=== PATIENT | male | born 1940 | race Hispanic/Latino ===

== ENCOUNTER 2017-02-11 06:44 | Inpatient (IN) | payer MEDICARE ==
[2017-02-11 06:48] VITALS: BMI 41.5
--- NOTE | 2017-02-11 07:13 | ED PDOC ---
Arrival/HPI - General Chief Complaint: Trauma Time Seen by Provider: 02/11/17 07:03 Historian: Patient, Family (daughter in law) EM Caveat: Dementia - History of Present Illness Narrative History of Present Illness (Text): 02/11/17 07:17 A 76 year old male is brought into the emergency department via EMS after being found by his hdvfshis-ka-nic face down on the ground. The patient reports he went outside and had a mechanical fall. He fell onto his bilateral knees and hit his right forehead. Patient currently complaining of right head pain at the site of his abrasion and bilateral knee pain. He states he did not loss consciousness and recalls the entire event. Patient denies any dizziness, numbness, weakness, or other complaints at this time. Time/Duration: 1-3 hours Symptom Onset: Sudden Symptom Course: Unchanged Quality: Other Activities at Onset: Rest Past Medical History - Provider Review Nursing Documentation Reviewed: Yes - Infectious Disease Hx of Infectious Diseases: None - Tetanus Immunization Tetanus Immunization: Up to Date - Cardiac Hx Cardiac Disorders: No - Pulmonary Hx Respiratory Disorders: No - Neurological Hx Neurological Disorder: Yes Hx Dementia: Yes Hx Parkinson's Disease: Yes - HEENT Hx HEENT Disorder: No - Renal Hx Renal Disorder: No - Endocrine/Metabolic Hx Endocrine Disorders: No - Hematological/Oncological Hx Blood Disorders: No - Integumentary Hx Dermatological Disorder: No - Musculoskeletal/Rheumatological Hx Musculoskeletal Disorders: No - Gastrointestinal Hx Gastrointestinal Disorders: No - Genitourinary/Gynecological Hx Genitourinary Disorders: No - Psychiatric Hx Psychophysiologic Disorder: No Hx Substance Use: No - Surgical History Hx Eye Surgery: Yes (cornea transplant) - Anesthesia Hx Anesthesia: No Hx Anesthesia Reactions: No Hx Malignant Hyperthermia: No Family/Social History - Physician Review Nursing Documentation Reviewed: Yes Family/Social History: Unknown Family HX Smoking Status: Heavy Smoker > 10 Cigarettes Daily Hx Alcohol Use: No Hx Substance Use: No Allergies/Home Meds Allergies/Adverse Reactions: Allergies Penicillins Allergy (Verified 10/19/15 17:11) RASH Home Medications: Home Meds Medication Instructions Recorded Confirmed Carbidopa/Levodopa [Carbidopa and 1 tab PO DAILY 09/24/15 10/19/15 Levodopa 10 mg-100 mg] Physical Exam - Physical Exam Narrative Physical Exam (Text): - Review of Systems Constitutional: Head pain. absent: Fatigue, Weight Change, Fevers Eyes: Normal ENT: Normal Respiratory: Normal absent: SOB, Cough, Sputum Cardiovascular: Normal absent: Chest pain, Palpitations, Syncope Gastrointestinal: Normal absent: Abdominal pain, Diarrhea, Nausea, Vomiting Genitourinary: Normal. absent: Dysuria, Frequency, Hematuria Musculoskeletal: Bilateral knee pain. absent: Arthralgias, Back Pain, Neck Pain Skin: Abrasions. Neurological: Normal. absent: Focal Weakness, dizziness Endocrine: Normal Hemo/Lymphatic: Normal Psychiatric: Normal - Physical exam Patient appears age appropriate, speaking full sentences without difficulty - Systems Exam Head: Present: superficial abrasion to the right forehead. Pupils: Present: PERRL Extraocular Muscles: Present: EOMI Conjunctiva: Present: Normal Mouth: Present: Moist Mucous Membranes Neck: Present: Normal Range of Motion. No: MIDLINE TENDERNESS, Paraspinal Tenderness Respiratory/Chest: Present: Clear to Auscultation, Good Air Exchange. No: Respiratory Distress, Accessory Muscle Use, Tachypneic Cardiovascular: Present: Regular Rate and Rhythm, Normal S1, S2, Peripheral Pulses Present. No: Murmurs Abdomen: Present: Normal Bowel Sounds, No: Tenderness, Peritoneal Signs, Rebound, Guarding, Distention Back: Present: Normal Inspection. No: Midline Tenderness, Paraspinal Tenderness Upper Extremity: Present: Normal Inspection. No: Cyanosis, Edema Lower Extremity: Present: superficial abrasion to the bilateral knees. No: Edema Neurological: Present: GCS=15, Speech Normal, cranial nerves II through XII fully intact with no cerebellar abnormality, neuro-sensory fully intact. No focal neurological deficits. Skin: Present: Warm, Dry, Normal Color. No: Rashes Lymphatic: Present: OX3, NI, NC Psychiatric: Present: Alert, not anxious Head with superficial abrasion to the right forehead. No nasal bone deformity or tenderness, no facial or jaw pain/swelling. No neck midline tenderness, thoracic and lumbar spine with no midline tenderness. Pt moving b/l upper and lower extremities without difficulty, 5/5 strength, with full active and passive ROM. Superficial abrasion to the bilateral knees. Distal neurovasc fully intact. Abd soft/nt/nd, no hematomas, no peritoneal signs. Neg. pelvic rock. Vital Signs Reviewed: Yes Vital Signs Temp Pulse Resp BP Pulse Ox 02/11/17 07:00 98.0 F 77 18 152/83 H 97 Temperature: Afebrile Blood Pressure: Hypertensive Pulse: Regular Respiratory Rate: Normal Appearance: Positive for: Well-Appearing, Non-Toxic, Comfortable Pain Distress: None Mental Status: No: Agitated, Lethargic, Comatose Finger Stick Blood Glucose: 149 Medical Decision Making ED Course and Treatment: 02/11/17 07:11 Impression: A 76 year old male with a mechanical fall. Differential Diagnosis include but are not limited to: fractures vs. dislocation vs. intracranial hemorrhage Plan: -- Head CT -- Cervical Spine CT -- Chest X-ray -- Bilateral Hip X-ray -- Bilateral Knee X-ray -- Labs -- TDAP Vaccine and Tylenol -- Reassess and disposition Prior Visits: Notes and results from previous visits were reviewed. The patient last presented to the emergency department on 10/19/15 for suture removal from his finger. Progress Notes: EKG: Ordered, reviewed, and independently interpreted the EKG. Rate : 86 BPM Rhythm : NSR Interpretation : No ST-segment elevations, normal intervals. Interpreted by me. 02/11/17 08:[address]: Creator : EFREN JIMENEZ MD IMPRESSION: No acute intracranial abnormality. Mild chronic microangiopathic changes and mild age-related global parenchymal volume loss. 02/11/17 08:[address]: Creator : EFREN JIMENEZ MD IMPRESSION: No acute fracture or traumatic anterior listhesis. 02/11/17 09:23 Bilateral Hip and Pelvis X-ray: Creator : Poncho Russo MD IMPRESSION: Unremarkable radiographs of the hips and pelvis. Bilateral Knee X-ray: Creator : Poncho Russo MD IMPRESSION: Normal radiographs of the knees. Chest X-ray: Creator : EFREN JIEMNEZ MD IMPRESSION: No active pulmonary disease. 02/11/17 10:03 pt unable to ambulate, will be admitted for PT and further w/u family states they dont' habe PMD at [facility] Dr. Duarte paged 02/11/17 10:[address] Duarte, accepts pt to her service family aware of and agree with plan - Lab Interpretations Lab Results: 02/11/17 08:32 02/11/17 08:32 Lab Results 02/11/17 08:32: PT 11.2, INR 1.04, APTT 25.2 02/11/17 08:32: WBC 12.6 H, RBC 4.22, Hgb 13.5 L, Hct 38.7 L, MCV 91.7, MCH 32.0 , MCHC 34.9, RDW 13.7, Plt Count 200, MPV 9.6, Gran % 85.2 H, Lymph % (Auto) 8.4 L, [place] % (Auto) 6.2 H, Eos % (Auto) 0.1 L, Baso % (Auto) 0.1, Gran # 10.69 H, Lymph # 1.1 L, [place] # 0.8 H, Eos # 0.0, Baso # 0.01 02/11/17 08:32: Sodium 139, Potassium 4.1, Chloride 103, Carbon Dioxide 27, Anion Gap 13, BUN 15, Creatinine 0.9, Est GFR ( Amer) > 60, Est GFR (Non- Af Amer) > 60, Random Glucose 119 H, Calcium 9.7, Total Bilirubin 0.7, AST 36, ALT 21, Alkaline Phosphatase 96, Lactate Dehydrogenase 518, Total Creatine Kinase 638 H, CK-MB (CK-2) 6.2 H, CK-MB (CK-2) % 1.0 L, Troponin I 0.03, Total Protein 7.6, Albumin 4.2, Globulin 3.5, Albumin/Globulin Ratio 1.2 I have reviewed the lab results: Yes - RAD Interpretation Radiology Orders: 02/11/17 07:24 CERVICAL SPINE W/O CONTRAST [CT] Stat HEAD W/O CONTRAST [CT] Stat HIP MIN 2V W/ PELVIS KRYSTLE [RAD] Stat KNEES BILATERAL [RAD] Stat 02/11/17 07:25 CHEST PORTABLE [RAD] Stat - Medication Orders Current Medication Orders: Sodium Chloride (Sodium Chloride 0.9%) 1,000 mls @ 1,000 mls/hr IV .Q1H STA Stop: 02/11/17 11:02 Discontinued Medications Acetaminophen (Tylenol 325mg Tab) 975 mg PO STAT STA Stop: 02/11/17 07:24 Last Admin: 02/11/17 08:46 Dose: 975 mg Comments: . Tetanus/Reduced Diphtheria/Acell Pertussis (Boostrix Vaccine Inj) 0.5 ml IM .ONCE ONE Stop: 02/11/17 07:24 Last Admin: 02/11/17 08:47 Dose: 0.5 ml - Scribe Statement The provider has reviewed the documentation as recorded by the DaribLatia Latham Attestation: All medical record entries made by the Daribmarina were at my direction and personally dictated by me. I have reviewed the chart and agree that the record accurately reflects my personal performance of the history, physical exam, medical decision making, and the department course for this patient. I have also personally directed, reviewed, and agree with the discharge instructions and disposition. Disposition/Present on Arrival - Present on Arrival Any Indicators Present on Arrival: No History of DVT/PE: No History of Uncontrolled Diabetes: No Urinary Catheter: No History of Decub. Ulcer: No History Surgical Site Infection Following: None - Disposition Have Diagnosis and Disposition been Completed?: Yes Diagnosis: Fall Disposition: HOSPITALIZED Disposition Time: 10:14 Patient Plan: Admission Condition: FAIR Referrals: Austin Soto, [Primary Care Provider] - Follow up with primary
[2017-02-11] MEDS ORDERED: TDAP Vaccine 0.5 mL Syr IM ONE (07:23)
--- NOTE | 2017-02-11 08:31 | CT ---
PROCEDURE: CT HEAD WITHOUT CONTRAST. HISTORY: Fall COMPARISON: None available. TECHNIQUE: Axial computed tomography images were obtained through the head/brain without intravenous contrast. Radiation dose: Total exam DLP = 746.99 mGy-cm. This CT exam was performed using one or more of the following dose reduction techniques: Automated exposure control, adjustment of the mA and/or kV according to patient size, and/or use of iterative reconstruction technique. FINDINGS: HEMORRHAGE: No intracranial hemorrhage. BRAIN: There are mild chronic microangiopathic changes. There is no mass, mass effect or abnormal extra-axial fluid collection. VENTRICLES: The ventricles are normal in size, shape and configuration. CALVARIUM: There is no calvarial fracture or extracranial soft tissue swelling. PARANASAL SINUSES: Predominantly clear. MASTOID AIR CELLS: Predominantly clear. OTHER FINDINGS: None. IMPRESSION: No acute intracranial abnormality. Mild chronic microangiopathic changes and mild age-related global parenchymal volume loss.
--- NOTE | 2017-02-11 08:35 | CT ---
PROCEDURE: CT Cervical Spine without contrast HISTORY: Fall COMPARISON: None available. TECHNIQUE: Axial computed tomography images were obtained of the cervical spine without the use of intravenous contrast. Coronal and sagittal reformatted images were created and reviewed. Radiation dose: Total exam DLP = 746.99 mGy-cm. This CT exam was performed using one or more of the following dose reduction techniques: Automated exposure control, adjustment of the mA and/or kV according to patient size, and/or use of iterative reconstruction technique. FINDINGS: VERTEBRAE: There is normal alignment of the cervical vertebral bodies. Cervical lordosis is maintained. Vertebral bodies are normal in height. There is no acute fracture or spondylolisthesis. DISCS/SPINAL CANAL/NEURAL FORAMINA: There is mild multilevel degenerative disc disease due to combination of disc osteophyte complexes, uncovertebral joint hypertrophy and multilevel facet arthropathy. No spinal canal stenosis PARASPINAL SOFT TISSUES: There is no prevertebral soft tissue swelling. The paraspinous soft tissues are normal. OTHER FINDINGS: No apical pneumothorax. IMPRESSION: No acute fracture or traumatic anterior listhesis.
[2017-02-11 08:47] LABS: ADD MANUAL DIFF? NO
[2017-02-11 08:53] LABS: BASO # 0.01 K/mm3 (0.0-2.0); BASO % 0.1 % (0.0-3.0); EOS % 0.1 % (1.5-5.0); GRAN # 10.69 (1.4-6.5); GRAN % 85.2 % (50.0-68.0); HEMATOCRIT 38.7 % (42.0-52.0); LYMPH # 1.1 (1.2-3.4); LYMPH % 8.4 % (22.0-35.0); MEAN CELL VOLUME 91.7 fL (80.0-105.0); MEAN CORPUSCULAR HGB CONC 34.9 g/dl (31.0-37.0); MEAN PLATELET VOLUME 9.6 fl (7.0-11.0); MONO # 0.8 (0.1-0.6); MONO % 6.2 % (1.0-6.0); PLATELET COUNT 200 10^3/uL (120.0-450.0); RED CELL DISTRIBUTION WIDTH 13.7 % (11.5-14.5); WHITE BLOOD COUNT 12.6 10^3/ul (4.5-11.0)
[2017-02-11 09:03] LABS: ALB/GLOB RATIO 1.2 (1.1-1.8); ALKALINE PHOSPHATASE 96 U/L (38-133); ALT/SGPT 21 U/L (7-56); AST/SGOT 36 U/L (15-59); BILIRUBIN,TOTAL 0.7 mg/dL (0.2-1.3); BLOOD UREA NITROGEN 15 mg/dL (7-21); CALCIUM 9.7 mg/dL (8.4-10.5); CARBON DIOXIDE 27 mmol/L (21-33); CHLORIDE 103 mmol/L (98-107); GFR AFRICAN-AMERICAN > 60; GLUCOSE,RANDOM 119 mg/dL (70-110); POTASSIUM 4.1 mmol/L (3.6-5.0); SODIUM 139 mmol/L (132-148); TOTAL PROTEIN 7.6 g/dL (5.8-8.3)
[2017-02-11 09:04] LABS: INR 1.04 (0.93-1.08); PARTIAL THROMBOPLASTIN TIME 25.2 Seconds (23.7-30.8)
[2017-02-11 09:15] LABS: TROPONIN I 0.03 ng/mL
--- NOTE | 2017-02-11 09:15 | RAD ---
HISTORY: Cough COMPARISON: The lungs are clear. FINDINGS: LUNGS: No active pulmonary disease. PLEURA: No significant pleural effusion identified, no pneumothorax apparent. CARDIOVASCULAR: Normal. OSSEOUS STRUCTURES: No significant abnormalities. VISUALIZED UPPER ABDOMEN: Normal. OTHER FINDINGS: None. IMPRESSION: No active pulmonary disease.
--- NOTE | 2017-02-11 09:22 | RAD ---
PROCEDURE: Bilateral Knee Radiographs. HISTORY: fall COMPARISON: None. FINDINGS: BONES: Right Knee: Normal. No fracture. Left Knee: Normal. No fracture. JOINTS: Right Knee: Normal. No osteoarthritis. Left knee: Normal. No osteoarthritis. SOFT TISSUES: Right Knee: Normal. Left Knee: Normal. JOINT EFFUSION: Right Knee: None. Left Knee: None. OTHER FINDINGS: None. IMPRESSION: Normal radiographs of the knees.
--- NOTE | 2017-02-11 09:23 | RAD ---
PROCEDURE: Radiographs of the pelvis and bilateral hips HISTORY: fal COMPARISON: None. FINDINGS: BONES: Pelvis: Unremarkable. Right hip:Unremarkable. Left hip:Unremarkable. JOINTS: Right hip: Unremarkable. Left hip: Unremarkable. Sacroiliac Joints: Unremarkable. Pubic symphysis: Unremarkable. SOFT TISSUES: Normal. OTHER FINDINGS: None. IMPRESSION: Unremarkable radiographs of the hips and pelvis.
[2017-02-11] MEDS ORDERED: Sodium Chloride 0.9% 1,000 ML IV STA (10:03)
[2017-02-11 12:07] LABS: CHOLESTEROL 162 mg/dL (130-200)
--- NOTE | 2017-02-11 14:54 | CARD ---
APPROVED REPORT EKG Measurement Heart [id number] <Conclusion> Normal sinus rhythm Normal ECG
--- NOTE | 2017-02-11 15:42 | HP ---
HISTORY OF PRESENT ILLNESS: The patient is a 76-year-old white male who was brought in the family wh en he from home. According to [id number] who was by the bedside between 12:00 to 6:00, he walked out of the house without anybody noticing and when they woke up and did not find him they travis led police and they looked around was found on the sidewalk between car and curb with facedown. He was responding; however, he was found to have some slurred speech. There is no history of seizu res, complained of generalized weakness, no history of fever or chills, no nausea, vomiting, no diarrhea. According to [id number] who lives upstairs and the patient and his live downsta irs that he usually ambulates with a cane and recently has been found incontinent of urine. PAST MEDICAL HISTORY: Significant for Parkinson disease and coronary artery disease and had a cardia c cath done in the remote past, does not know exact dates. ALLERGIES: HE IS ALLERGIC TO PENICILLIN. MEDICATIONS AT HOME: He is on omeprazole 40 mg daily, vitamin D, carbidopa 10/100 three times a day. SOCIAL HISTORY: He is , lives with his and with his son. PHYSICAL EXAMINATION: GENERAL: The patient is awake and alert, communicative and he has slurred speech. He has right faci al droop. VITAL SIGNS: He is afebrile, pulse 75, respirations 18, blood pressure 132/69. LUNGS: Bilateral good airflow, no rhonchi or crackle. HEART: S1, S2 audible. ABDOMEN: Soft, nontender, no rebound, no guarding. NEUROLOGIC: He is able to move all extremities; however, he has right facial droop. LABORATORY DATA: WBC is 12.6, hemoglobin 13.5, hematocrit 38.7, platelet 200. PT 11.2, INR 1.04. C hemistry: Sodium 139, potassium 4.1, chloride 103, CO2 of 27, BUN 15, creatinine 0.9, blood sugar of 119. LFTs are within normal limits. CPK 632, CK-MB 6.2, albumin 4.2. CT scan of the brain is unre markable. Cervical spine: No fracture noted. X-ray of the hip and pelvis is negative. of ch est is negative. ASSESSMENT: 1. Status post fall, rule out transient ischemic attack, especially with right facial droop. 2. History of Parkinson's disease. 3. Deconditioning. 4. Leukocytosis. 5. Right facial abrasions with bilateral knee abrasion. PLAN: We will start him on aspirin. I will order for lipid profile, thyroid profile and apply Bactr oban to both knees and right facial abrasion. Neuro consult by Dr. Curtis Aguilera has been recommende d. Mena Duarte MD cc: [phone] TT: 02/11/2017 15:41:57 cn
--- NOTE | 2017-02-11 18:13 | CON ---
DATE: 02/11/2017 HISTORY OF PRESENT ILLNESS: This is a 76-year-old white male with a past medical history of Parkinso n disease, coronary artery disease status post cardiac cath, came to the hospital, brought in by the family and he was found outside the house on the sidewalk between the car and the facedown and police were called. The patient was responding, but found to have slurred speech. No seizure. He h ad bruises on both the knees and forehead. No nausea, no vomiting. PAST MEDICAL HISTORY: As above. ALLERGIES: PENICILLIN. MEDICATIONS: Omeprazole, carbidopa, Sinemet. SOCIAL HISTORY: , lives with and son. REVIEW OF SYSTEMS: A 10-point review of system was negative except as noted above. PHYSICAL EXAMINATION: HEENT: Normocephalic, atraumatic. NECK: Supple. NEUROLOGIC: Awake, oriented to self and place. No aphasia. Cranial nerves II-XII were tested. Pup ils reactive. Spontaneous movement of all the extremities noted, upper more than the lower. Deep te ndon reflexes 1+. Both plantars are downgoing. Sensory appears intact. Cerebellar and gait deferre d. IMPRESSION: The patient has Parkinson disease and possibly had a syncopal episode versus TIA and fal l secondary to above and right facial abrasion and bilateral knee abrasion. CAT scan of the head was done, which was reported negative. LABORATORY: WBC 12.6, hemoglobin 13.5, hematocrit 38.7, platelets 200. Chemistry: Sodium 139, pota ssium 4.1, chloride 103, CO2 of 27, glucose 119, BUN 15, creatinine 0.9. CPK was also high, possibly secondary to fall. Workup in progress. PLAN: Continue present management. We will follow up. Adriel Aguilera MD cc: [id number] TT: 02/11/2017 18:12:11 Confirmation # [id number] Dictation # [id number] mn
--- NOTE | 2017-02-11 18:49 | US ---
PROCEDURE: Bilateral carotid artery duplex ultrasound HISTORY: Carotid stenosis PHYSICIAN(S): Josse Gordon MD. TECHNIQUE: Duplex sonography and color-flow Doppler were used to evaluate the carotid bifurcations and limited segments of the vertebral arteries bilaterally. The exam is very limited by the patient's contracted condition and inability to cooperate. FINDINGS: There is moderate to extensive heterogeneous echogenic plaque noted at the carotid bifurcations bilaterally. The peak systolic velocity in the proximal right internal carotid artery is 160 cm/sec. This corresponds to a 60-79 percent proximal right ICA stenosis. Normal systolic velocities are noted in the proximal right external carotid artery. There is antegrade flow in the right vertebral artery. The peak systolic velocity in the proximal left internal carotid artery is 92 cm/sec. This corresponds to a 20 to 39% proximal left ICA stenosis. Normal systolic velocities are noted in the proximal left external carotid artery. There is blunted antegrade flow in the small left vertebral artery. IMPRESSION: 1. 60-79 percent proximal right ICA stenosis. 2. 20-39 percent proximal left ICA stenosis. 3. Antegrade flow in both vertebral arteries.
[2017-02-12] MEDS: Pantoprazole 40 mg EC Tab PO SCH (06:03)
[2017-02-12 08:53] LABS: ADD MANUAL DIFF? NO
[2017-02-12 08:58] LABS: BASO # 0.02 K/mm3 (0.0-2.0); BASO % 0.2 % (0.0-3.0); EOS # 0.1 (0.0-0.7); EOS % 1.2 % (1.5-5.0); GRAN # 8.29 (1.4-6.5); GRAN % 69.4 % (50.0-68.0); HEMATOCRIT 40.7 % (42.0-52.0); LYMPH # 2.4 (1.2-3.4); LYMPH % 20.4 % (22.0-35.0); MEAN CELL VOLUME 93.3 fL (80.0-105.0); MEAN CORPUSCULAR HEMOGLOBIN 32.6 pg (25.0-35.0); MEAN CORPUSCULAR HGB CONC 34.9 g/dl (31.0-37.0); MEAN PLATELET VOLUME 9.9 fl (7.0-11.0); MONO # 1.1 (0.1-0.6); MONO % 8.8 % (1.0-6.0); PLATELET COUNT 219 10^3/uL (120.0-450.0); RED CELL DISTRIBUTION WIDTH 13.7 % (11.5-14.5); WHITE BLOOD COUNT 11.9 10^3/ul (4.5-11.0)
[2017-02-12 09:06] LABS: ALB/GLOB RATIO 1.2 (1.1-1.8); ALKALINE PHOSPHATASE 91 U/L (38-133); ALT/SGPT 36 U/L (7-56); AST/SGOT 138 U/L (15-59); BILIRUBIN,TOTAL 0.9 mg/dL (0.2-1.3); BLOOD UREA NITROGEN 12 mg/dL (7-21); CALCIUM 9.3 mg/dL (8.4-10.5); CARBON DIOXIDE 28 mmol/L (21-33); CHLORIDE 102 mmol/L (98-107); GFR AFRICAN-AMERICAN > 60; GLUCOSE,RANDOM 95 mg/dL (70-110); MAGNESIUM 2.1 mg/dL (1.7-2.2); PHOSPHOROUS 2.7 mg/dL (2.5-4.5); POTASSIUM 3.9 mmol/L (3.6-5.0); SODIUM 137 mmol/L (132-148); TOTAL PROTEIN 7.4 g/dL (5.8-8.3)
[2017-02-12 09:22] LABS: FREE T4 0.99 ng/dL (0.78-2.19)
[2017-02-12 09:36] LABS: PROSTATE SPECIFIC ANTIGEN 1.9 ng/mL (0.00-2.5); THYROID STIMULATING HORMONE 2.39 mIU/mL (0.46-4.68)
--- NOTE | 2017-02-12 13:37 | IP.NPCORE ---
NIHSS Stroke Scale - Date/Time Evaluation Performed Date Performed: 02/12/17 Time Performed: 10:00 When Was NIHSS Performed: Other - How Severe is the Stoke Level of Consciousness: 1=Drowsy
--- NOTE | 2017-02-12 16:33 | PN ---
DATE: 02/12/2017 HISTORY OF PRESENT ILLNESS: The patient is 76 years old, seen and examined, sitting in chair. He is awake and alert and able to answer simple questions. As per nurse, eating fair. PHYSICAL EXAMINATION: VITAL SIGNS: He is afebrile, pulse 57, respirations 20, blood pressure 155/75. LUNGS: Bilateral fair airflow, no rhonchi or crackle. HEART: S1, S2 audible. ABDOMEN: Soft, obese, nontender, no rebound, no guarding. NEUROLOGIC: He is awake and alert. Has fine tremor in both upper extremities. He has facial droop, but according to family, that seems to be old. SKIN: He has forehead abrasion. Also has bilateral knee abrasions. LABORATORY EXAMINATION: WBC is 11.9, hemoglobin 14.2, hematocrit 40.7, platelet of 219. Sodium 137, potassium 3.9, chloride 102, CO2 28, BUN 12, creatinine 0.8, blood sugar of 95. LFTs are within nor mal limits. RADIOLOGY DATA: Carotid ultrasound shows right ICA 60% to 79%, left is 20% to 39%. The patient refu sed to have MRI done. Will reach out to the family. ASSESSMENT: 1. Status post fall. 2. Forehead abrasion. 3. Right carotid stenosis. 4. Parkinson disease. 5. History of coronary artery disease, status post catheterization in the remote past. 6. Deconditioning. PLAN: Will reach out to the family to get MRI. Otherwise, I will request for a physical therapy madalyn redmanation. Dr. Josse Gordon to evaluate patient's right carotid stenosis. I do not think any intervent ion is needed, but will get opinion anyway. Will continue on aspirin, start him on Lipitor. Continu e on Protonix, and will reevaluate the patient in a.m. Mena Duarte MD cc: [phone] TT: 02/12/2017 16:32:58 Confirmation # [id number] Dictation # [id number]
--- NOTE | 2017-02-12 17:16 | PN ---
DATE: 02/12/2017 CHIEF COMPLAINT: Followup for status post fall. SUBJECTIVE: The patient seen and examined at bedside, sitting up in the chair, in no acute distress. He had a recent mechanical fall, was found down by the sidewalk by the curb. Had some slurred spee ch and questionable right facial droop which he no longer has. His CT head showed no acute intracran ial abnormalities. He has fine tremors of both upper extremities and has a right carotid artery dise ase and carotid Doppler showing 60% to 79% right ICA stenosis and 20% to 39% left ICA stenosis. He h as Parkinson disease which has resulted in gait dysfunction and deconditioning. Overall, vascular co nsult has been placed out. The patient had refused MRI of the brain, MRA of the neck, but has agreed possibly today to get it done. He is on aspirin and statin for stroke prevention. PAST MEDICAL HISTORY: Parkinson disease, history of right carotid artery stenosis, history of roblero ry artery disease, status post catheterization in the past, deconditioning, cognitive impairment. REVIEW OF SYSTEMS: A 14-point review of systems negative except for the HPI. FAMILY HISTORY: Noncontributory. SOCIAL HISTORY: No illicit drug use, smoking, or ETOH abuse. ALLERGIES: ALLERGIC TO PENICILLIN. MEDICATIONS: Reviewed via nurse's reconciliation sheet. PHYSICAL EXAMINATION: VITAL SIGNS: Temperature 98.3, pulse rate 57, blood pressure 155/75, respiratory rate 20, oxygen sat uration 95% via room air. GENERAL: The patient is sitting up in bed in no acute distress. HEENT: Atraumatic, normocephalic. PERRLA. Extraocular muscles intact. NECK: Supple, no JVD, no adenopathy noted. LUNGS: Clear to auscultation. No adventitious sounds. HEART: S1, S2, normal rate and rhythm. No murmurs, rubs, or gallops. ABDOMEN: Soft, nontender, nondistended. Bowel sounds present. EXTREMITIES: No clubbing, no cyanosis. Peripheral pulses are absent bilaterally. NEUROLOGIC: The patient is alert, orientated to person, place and year. Recall after 5 minutes is 0 /3. Poor attention span, slow thought process. Flat affect. Cranial nerves II-XII intact. MOTOR: Increased tone throughout, has cogwheel rigidity at the wrist. Moves all extremities. No pr onator drift seen. SENSORY: Decreased light touch and pinprick up to the calves bilaterally. Decreased vibration in to es. DTR are 1+ throughout and absent at the ankles. COORDINATION: Mvvoho-dt-vjly intact. Gait is deferred for now. Mild rest tremor. LABORATORIES: Sodium is 137, potassium 3.9, chloride of 102, carbon dioxide 28, BUN of 12, creatinin e 0.8. Random glucose of 95. ASSESSMENT AND PLAN: A 76-year-old man with past medical history of Parkinson disease, on Sinemet 10 /100 t.i.d.; history of gastritis, history of hypertension, coronary artery disease status post stent s, history of dyslipidemia and deconditioned, who had a mechanical fall outside his house on the curb . He was found down, had some questionable right facial droop and with slurring of speech which had resolved. Overall, he is status post fall with a possible transient ischemic event. He has a right carotid artery stenosis of 60% to 79% on carotid Doppler. MRA of the neck is pending and MRI of the brain is pending due to patient refusing. At this time, recommend: 1. At least aspirin 81 mg p.o. daily and Lipitor 20 mg p.o. daily for stroke prevention. 2. Consider vascular evaluation just to see his right carotid artery stenosis. 3. Continue with Sinemet 10/100 t.i.d. for parkinsonism. 4. Get physical therapy for gait evaluation and muscle strengthening. Possibly may benefit from sub acute rehabilitation if possible. At this time, continue with current present medical management. Thank you for this followup. Curtis Aguilera MD cc: [phone] TT: 02/12/2017 17:15:37 Confirmation # [id number] Dictation # [id number] sn
--- NOTE | 2017-02-12 19:49 | CP.PCM.CON ---
History of Present Illness - History of Present Illness History of Present Illness: Vascular Surgery Consult Re: R Carotid Stenosis HPI: 76M who is a poor historian presented to the ED yesterday after he wandered out of the house and fell down. Per the son, he was found after he was noticed missing in the morning between a car and the curb a few blocks away. The pt has shown progressively worsening dementia over the last year and has had other falls related to his parkinsonian gait disturbance. He usually walks with a cane for assistance but has to be reminded to use it correctly. CT showed no acute intracranial issues. We were consulted for the carotid US results showing 60-79% stenosis of the R carotid artery. Currently pt denies any complaints as well as denying that he fell. Per son, he seems to be his usual mental state but does have more lucid periods on occasion. PMH: Parkinsons, Dementia, GERD, CAD PSH: Cardiac cath, cornea transplant SH: Smoker; No EtOH or drug use All: PCN Meds: See MAR Review of Systems - Review of Systems All systems: reviewed and no additional remarkable complaints except (as per HPI ) Past Patient History - Infectious Disease Hx of Infectious Diseases: None - Tetanus Immunizations Tetanus Immunization: Up to Date - Past Social History Smoking Status: Unknown If Ever Smoked - CARDIAC Hx Hypertension: Yes - PULMONARY Hx Respiratory Disorders: No - NEUROLOGICAL Hx Neurological Disorder: Yes Hx Dementia: Yes Hx Parkinson's Disease: Yes - HEENT Hx HEENT Problems: Yes (hx of corneal transplant) - RENAL Hx Chronic Kidney Disease: No - ENDOCRINE/METABOLIC Hx Endocrine Disorders: No - HEMATOLOGICAL/ONCOLOGICAL Hx Blood Disorders: No - INTEGUMENTARY Hx Dermatological Problems: Yes Other/Comment: long fingernails and thick toenails, redness to groin, r abd fold and r upper abd, multiple bruises to b/l arm, abrasions to both knees and r forehead with swelling,variscosities both feet, small stage 1 0.5cm round opening to left buttock, buttocks slightly red - MUSCULOSKELETAL/RHEUMATOLOGICAL Hx Falls: Yes (this am) - GASTROINTESTINAL Hx Gastrointestinal Disorders: No - GENITOURINARY/GYNECOLOGICAL Hx Genitourinary Disorders: No - PSYCHIATRIC Hx Psychophysiologic Disorder: No - SURGICAL HISTORY Hx Surgeries: Yes - ANESTHESIA Hx Anesthesia: No Hx Anesthesia Reactions: No Hx Malignant Hyperthermia: No Meds Allergies/Adverse Reactions: Allergies Allergy/AdvReac Type Severity Reaction Status Date / Time Penicillins Allergy RASH Verified 02/11/17 10:33 - Medications Medications: Current Medications Acetaminophen (Tylenol 325mg Tab) 650 mg PO Q6H PRN PRN Reason: Fever >100.4 F Last Admin: 02/12/17 03:39 Dose: 650 mg Aspirin (Aspirin Chewable) 81 mg PO DAILY [facility] Last Admin: 02/12/17 09:16 Dose: 81 mg Atorvastatin Calcium (Lipitor) 10 mg PO DIN [facility] Last Admin: 02/12/17 17:53 Dose: 10 mg Carbidopa/Levodopa (Sinemet 10/100) 1 tab PO TID [facility] Last Admin: 02/12/17 17:53 Dose: 1 tab Lorazepam (Ativan) 0.5 mg PO Q6H PRN; Protocol PRN Reason: Agitation Last Admin: 02/12/17 15:31 Dose: 0.5 mg Mupirocin (Bactroban Ointment) 0 gm TOP BID [facility] Last Admin: 02/12/17 17:58 Dose: 1 applic Ondansetron HCl (Zofran Inj) 4 mg IVP Q6H PRN PRN Reason: Nausea/Vomiting Pantoprazole Sodium (Protonix Ec Tab) 40 mg PO 0630 [facility] Last Admin: 02/12/17 06:03 Dose: Not Given Physical Exam - Constitutional Appears: Non-toxic, No Acute Distress - Head Exam Head Exam: NORMOCEPHALIC Additional comments: abrasion to R forehead and scalp - Eye Exam Eye Exam: EOMI. absent: Scleral icterus - ENT Exam ENT Exam: Mucous Membranes Moist Additional comments: wears dentures - Neck Exam Neck exam: Negative for: Tenderness Additional comments: kyphotic - Respiratory Exam Respiratory Exam: NORMAL BREATHING PATTERN. absent: Respiratory Distress - Cardiovascular Exam Cardiovascular Exam: RRR, +S1, +S2 - GI/Abdominal Exam GI & Abdominal Exam: Soft. absent: Distended, Tenderness - Rectal Exam Rectal Exam: Deferred - Extremities Exam Extremities exam: Positive for: normal capillary refill, pedal edema - Neurological Exam Neurological exam: Alert, CN II-XII Intact Additional comments: Smile symmetrical, per family "facial droop" noted in other notes is how he looks UE and LE strength equal B/L - Psychiatric Exam Psychiatric exam: Flat Affect, Normal Mood - Skin Skin Exam: Dry, Warm Results - Vital Signs Recent Vital Signs: Last Vital Signs Temp 98.3 F 02/12/17 16:00 Pulse 66 02/12/17 16:00 Resp 20 02/12/17 16:00 BP 160/80 H 02/12/17 16:00 Pulse Ox 97 02/12/17 16:00 - Labs Result Diagrams: 02/12/17 05:00 02/12/17 05:00 Labs: Laboratory Results - last 24 hr 02/12/17 02/12/17 02/12/17 05:00 05:00 05:00 WBC 11.9 H RBC 4.36 Hgb 14.2 Hct 40.7 L MCV 93.3 MCH 32.6 MCHC 34.9 RDW 13.7 Plt Count 219 MPV 9.9 Gran % 69.4 H Lymph % (Auto) 20.4 L [place] % (Auto) 8.8 H Eos % (Auto) 1.2 L Baso % (Auto) 0.2 Gran # 8.29 H Lymph # 2.4 [place] # 1.1 H Eos # 0.1 Baso # 0.02 Sodium 137 Potassium 3.9 Chloride 102 Carbon Dioxide 28 Anion Gap 11 BUN 12 Creatinine 0.8 Est GFR ( Amer) > 60 Est GFR (Non-Af Amer) > 60 Random Glucose 95 Hemoglobin A1c Calcium 9.3 Phosphorus 2.7 Magnesium 2.1 Total Bilirubin 0.9 AST 138 H ALT 36 Alkaline Phosphatase 91 Total Protein 7.4 Albumin 4.1 Globulin 3.3 Albumin/Globulin Ratio 1.2 Prostate Specific Ag 1.9 Free T4 0.99 TSH 3rd Generation 2.39 02/12/17 05:00 WBC RBC Hgb Hct MCV MCH MCHC RDW Plt Count MPV Gran % Lymph % (Auto) [place] % (Auto) Eos % (Auto) Baso % (Auto) Gran # Lymph # [place] # Eos # Baso # Sodium Potassium Chloride Carbon Dioxide Anion Gap BUN Creatinine Est GFR ( Amer) Est GFR (Non-Af Amer) Random Glucose Hemoglobin A1c 5.8 Calcium Phosphorus Magnesium Total Bilirubin AST ALT Alkaline Phosphatase Total Protein Albumin Globulin Albumin/Globulin Ratio Prostate Specific Ag Free T4 TSH 3rd Generation - Imaging and Cardiology US - carotid Status: Image reviewed by me, Report reviewed by me CT scan - head Status: Image reviewed by me, Report reviewed by me Assessment & Plan - Assessment and Plan (Free Text) Assessment: 76M with 60-79% R carotid stenosis, asymptomatic Plan: Continue medical management Discussed case with Dr. Wilson: No surgical intervention required in asymptomatic pts with 60-79% carotid stenosis. Recommend monitoring progression of disease with yearly US. PGY3
[2017-02-13] MEDS: Pantoprazole 40 mg EC Tab PO SCH (05:50)
[2017-02-13 07:39] LABS: ADD MANUAL DIFF? NO
[2017-02-13 07:47] LABS: BASO # 0.02 K/mm3 (0.0-2.0); BASO % 0.2 % (0.0-3.0); EOS # 0.2 (0.0-0.7); EOS % 1.7 % (1.5-5.0); GRAN # 6.77 (1.4-6.5); HEMATOCRIT 40.1 % (42.0-52.0); LYMPH % 20.1 % (22.0-35.0); MEAN CELL VOLUME 94.1 fL (80.0-105.0); MEAN CORPUSCULAR HEMOGLOBIN 31.5 pg (25.0-35.0); MEAN CORPUSCULAR HGB CONC 33.4 g/dl (31.0-37.0); MEAN PLATELET VOLUME 10.1 fl (7.0-11.0); MONO # 0.9 (0.1-0.6); PLATELET COUNT 191 10^3/uL (120.0-450.0); RED CELL DISTRIBUTION WIDTH 13.9 % (11.5-14.5); WHITE BLOOD COUNT 9.8 10^3/ul (4.5-11.0)
[2017-02-13 08:31] VITALS: O2SAT 94
[2017-02-13 08:35] LABS: BLOOD UREA NITROGEN 16 mg/dL (7-21); GFR AFRICAN-AMERICAN > 60; GLUCOSE,RANDOM 99 mg/dL (70-110); SODIUM 137 mmol/L (132-148)
[2017-02-13 08:36] LABS: ALB/GLOB RATIO 1.2 (1.1-1.8); ALKALINE PHOSPHATASE 73 U/L (38-133); ALT/SGPT 50 U/L (7-56); AST/SGOT 94 U/L (15-59); BILIRUBIN,TOTAL 0.5 mg/dL (0.2-1.3); CARBON DIOXIDE 27 mmol/L (21-33); CHLORIDE 103 mmol/L (98-107); MAGNESIUM 2.1 mg/dL (1.7-2.2); POTASSIUM 3.8 mmol/L (3.6-5.0); TOTAL PROTEIN 6.5 g/dL (5.8-8.3)
--- NOTE | 2017-02-13 12:54 | PN ---
DATE: 02/13/2017 The patient is a 76-year-old, seen and examined, sitting in chair, seems to be comfortable, looks muc h more awake and alert, able to communicate, eating well. PHYSICAL EXAMINATION: VITAL SIGNS: He is afebrile, pulse 64, respirations 20, blood pressure 137/71. LUNGS: Bilateral fair airflow, no rhonchi or crackle. HEART: S1, S2 audible. ABDOMEN: Soft, obese, nontender, no rebound, no guarding. NEUROLOGIC: The patient is awake and alert, able to communicate. EXTREMITIES: Bilateral leg edema. He has bilateral knee abrasions that seems to be scabbing. LABORATORY EXAM: Sodium 137, potassium 3.8, chloride 103, CO2 of 27, BUN 16, creatinine 0.9, blood s ugar 99. LFTs are within normal limits. WBC 9.8, hemoglobin 13.4, hematocrit 40, platelets 191. ASSESSMENT: 1. Status post fall. 2. History of Parkinson disease. 3. Right carotid moderate stenosis. 4. Unstable gait. 5. Deconditioning and difficulty walking. 6. Hypertension. 7. Hyperlipidemia. PLAN: The patient is currently on aspirin. His wounds on both knees and forehead is being cared for . He has been started on carbidopa/levodopa. He is on Protonix. Awaiting for TCU evaluation and ac ceptance. Once he is accepted, he can be transferred to TCU for rehab. Mena Duarte MD cc: [phone] TT: 02/13/2017 12:53:26 Confirmation # [id number] Dictation # [id number] benedict
[2017-02-14] MEDS: Pantoprazole 40 mg EC Tab PO SCH (05:51)
--- NOTE | 2017-02-14 12:09 | DS ---
The patient is a 76-year-old, seen and examined. Looks much more awake and alert. His forehead arley khoa is crusting, so are bilateral knee abrasions. He seems to be more alert and, according to nurse , eating and tolerating. Unstable on therapy. Good candidate for TCU. PHYSICAL EXAMINATION: VITAL SIGNS: He is afebrile, pulse 67, respirations 20, blood pressure 132/73. LUNGS: Bilateral good airflow, no rhonchi or crackle. HEART: S1, S2 audible. ABDOMEN: Soft, nontender, no rebound, no guarding. NEUROLOGIC: The patient is awake and alert. Has generalized weakness. ASSESSMENT: 1. Status post fall. 2. History of Parkinson disease, unstable gait. 3. Right carotid stenosis. 4. Mild dementia. 5. Coronary artery disease. 6. Forehead and bilateral knee abrasions. PLAN: Will continue patient on current medication. The patient was evaluated by Dr. Olivia Wilson. There is no plan for any intervention for right carotid stenosis and was advised to treat medically. Continue patient on aspirin, statins, Protonix, and I will continue him on his carbidopa/levodopa. Awaiting TCU evaluation and acceptance. Once he is accepted, he can be transferred to TCU today. Mena Duarte MD cc: [phone] TT: 02/14/2017 12:09:14 ne
[2017-02-14 13:42] LABS: URINE BILIRUBIN NEGATIVE (NEGATIVE); URINE BLOOD NEGATIVE (NEGATIVE); URINE GLUCOSE (UA) NEGATIVE (NEGATIVE); URINE KETONE NEGATIVE (NEGATIVE); URINE LEUKOCYTE ESTERASE TRACE Leu/uL (NEGATIVE); URINE PROTEIN TRACE mg/dL (<30 mg/dL)
[2017-02-14 13:54] LABS: URINE APPEARANCE CLEAR (CLEAR); URINE COLOR YELLOW (YELLOW)
[2017-02-14 14:06] LABS: URINE RBC NEGATIVE /hpf (0-2)
[2017-02-14 14:07] LABS: URINE BACTERIA TRACE (NEG)
[2017-02-14 17:38] VITALS: BP 127/68; PULSE 69; RESP 19; TEMP 98.4
== END 2017-02-14 19:56 | DRG 57 ==
LOC: ED 06:44 → ERH 10:15 → 3RSO 12:13
PROVIDERS: ADMIT Internal Medicine; ATTEND Internal Medicine
DX: G20 Parkinson's disease (principal); F02.80 Dementia in other diseases classified elsewhere, unspecified severity, without behavioral disturbance, psychotic disturbance, mood disturbance, and anxiety; I65.23 Occlusion and stenosis of bilateral carotid arteries; I25.10 Atherosclerotic heart disease of native coronary artery without angina pectoris; R29.810 Facial weakness; R47.81 Slurred speech; S80.211A Abrasion, right knee, initial encounter; S80.212A Abrasion, left knee, initial encounter; S00.81XA Abrasion of other part of head, initial encounter; K21.9 Gastro-esophageal reflux disease without esophagitis; I10 Essential (primary) hypertension; E78.5 Hyperlipidemia, unspecified; R26.2 Difficulty in walking, not elsewhere classified; W19.XXXA Unspecified fall, initial encounter; Y93.01 Activity, walking, marching and hiking; Y92.480 Sidewalk as the place of occurrence of the external cause; Y99.9 Unspecified external cause status; Z95.5 Presence of coronary angioplasty implant and graft; Z88.0 Allergy status to penicillin

== ENCOUNTER 2017-02-14 19:56 | Inpatient (IN) | payer OTHER ==
[2017-02-15] MEDS: Pantoprazole 40 mg EC Tab PO SCH (05:41)
[2017-02-15 07:14] LABS: HEMATOCRIT 40.3 % (42.0-52.0); MEAN CELL VOLUME 93.9 fL (80.0-105.0); MEAN CORPUSCULAR HEMOGLOBIN 31.7 pg (25.0-35.0); MEAN CORPUSCULAR HGB CONC 33.7 g/dl (31.0-37.0); RED CELL DISTRIBUTION WIDTH 13.8 % (11.5-14.5); WHITE BLOOD COUNT 10.3 10^3/ul (4.5-11.0)
[2017-02-15 07:16] LABS: ALB/GLOB RATIO 1.2 (1.1-1.8); ALKALINE PHOSPHATASE 78 U/L (38-133); ALT/SGPT 48 U/L (7-56); AST/SGOT 64 U/L (15-59); BILIRUBIN,TOTAL 0.8 mg/dL (0.2-1.3); BLOOD UREA NITROGEN 16 mg/dL (7-21); CALCIUM 9.4 mg/dL (8.4-10.5); CARBON DIOXIDE 28 mmol/L (21-33); CHLORIDE 101 mmol/L (95-110); GFR AFRICAN-AMERICAN > 60; GLUCOSE,RANDOM 104 mg/dL (70-110); POTASSIUM 4.3 mmol/L (3.6-5.0); SODIUM 137 mmol/L (132-148); TOTAL PROTEIN 6.9 g/dL (5.8-8.3)
--- NOTE | 2017-02-15 16:11 | CON ---
DATE: 02/15/2017 CHIEF COMPLAINT: Parkinson disease. HISTORY OF PRESENTING ILLNESS: This is a 76-year-old man with past medical history of Parkinson dise ase, on Sinemet 10/100 t.i.d.; history of gastritis, hypertension, coronary artery disease status pos t stents, history of dyslipidemia and deconditioned state, had a mechanical fall outside his house on the curb and was found down. Had some questionable slurred speech and right facial droop which had resolved. His CT head showed no acute intracranial abnormalities. He had a carotid Doppler that svetlana wed 60% to 79% proximal right ICA stenosis, which vascular surgery recommended just medical treatment . He is more alert and eating and tolerating. He has unstable gait; therefore, he is in TRCU for de conditioned state and physical and occupational therapy. PAST MEDICAL HISTORY: Parkinson disease, history of right carotid artery stenosis, coronary artery d isease, status post cath, deconditioned, cognitive impairment. REVIEW OF SYSTEMS: A 14-point review of systems negative except for the HPI. SOCIAL HISTORY: No illicit drug use, smoking or ETOH abuse. ALLERGIES: PENICILLIN. MEDICATIONS: Reviewed via nurse's reconciliation sheet. PHYSICAL EXAMINATION: VITAL SIGNS: Temperature of 97.6, pulse rate of 80, blood pressure 117/74, respiratory rate of 18. GENERAL: The patient is sitting up in bed in no acute distress. HEENT: Atraumatic, normocephalic. PERRLA. Extraocular muscles intact. NECK: Supple, no JVD, no adenopathy noted. LUNGS: Clear to auscultation. No adventitious sounds. HEART: S1, S2, normal rate and rhythm. No murmurs, rubs, or gallops. ABDOMEN: Soft, nontender, nondistended. Bowel sounds are present. EXTREMITIES: No clubbing, no cyanosis. Peripheral pulses 2+ felt bilaterally. NEUROLOGIC: The patient is alert and orientated to person, place and year. Recall after 5 minutes i s 0/3. Poor attention span. Slow thought process. Flat affect. Cranial nerves II-XII intact. MOTOR: Increased tone throughout. Has cogwheel rigidity, mild at the wrists. Moves all extremities equally. No pronator drift seen. SENSORY: Decreased light touch and pinprick up to the calves bilaterally. Decreased vibration at th e toes. DTRs are 1+ throughout and absent at the ankles. COORDINATION: Nncxye-cw-pcro intact. Gait is deferred for now. Has a mild rest tremor. LABORATORIES: Sodium is 137, potassium 4.3, chloride of 101, carbon dioxide 28, BUN of 6, creatinine 0.9, random glucose of 104. ASSESSMENT AND PLAN: A 76-year-old man with history of Parkinson disease, on Sinemet 10/100 t.i.d.; has cognitive impairment, gastritis, history of coronary artery disease status post stent, history of dyslipidemia and deconditioned state. Had a mechanical fall outside his curb and found to have tobar sient right facial droop and slurred speech which has resolved. Came to the hospital for further madalyn luation. Now currently in transitional care unit for deconditioned state for physical and occupation al therapy. He has right carotid artery stenosis on carotid Doppler 60% to 79%. Will be medically m anaged rather than no vascular intervention. At this time: 1. Continue with aspirin 81 mg and Lipitor 20 mg for stroke prevention. 2. Continue with Sinemet 10/100 t.i.d. mg for Parkinsonism. 3. Will need physical and occupational therapy for muscle strengthening, gait and balance and coordi nation. Continue with current present management. No further neurological workup needed at this araceli e. We will sign off. Curtis Aguilera MD cc: [phone] TT: 02/15/2017 16:10:43 Confirmation # [id number] Dictation # [id number] sn
--- NOTE | 2017-02-15 21:12 | HP ---
HISTORY OF PRESENT ILLNESS: The patient is a 76-year-old who was brought in by family. He was found missing on 02/11/2017. When they went to see him outside, he was found on the sidewalk with face do wn. He was brought to Emergency Room. Initial workup was done that shows right carotid 65% to 70% st enosis and was evaluated by Dr. Josse Gordon and Dr. Wilson and it was decided not to do any interventio n. The patient was transferred to TCU for rehab and physical therapy. PAST MEDICAL HISTORY: 1. Parkinson disease. 2. Hypertension. 3. Hyperlipidemia. 4. Coronary artery disease, status post cardiac catheterization in remote past. ALLERGIES: HE IS ALLERGIC TO PENICILLIN. MEDICATIONS AT HOME: He is on omeprazole 40 mg daily, vitamin D 100 three times a day. SOCIAL HISTORY: He is , lives with his and his son in the same two-family house. Denies smoking or drinking. REVIEW OF SYSTEMS: Significant for generalized weakness and difficulty walking. Otherwise, no nause a, vomiting. No diarrhea, no hemoptysis, no hematemesis. PHYSICAL EXAMINATION: GENERAL: He is awake and alert, communicative. VITAL SIGNS: He is afebrile, pulse 80, respirations 18, blood pressure 170/74. LUNGS: Bilateral fair airflow, no rhonchi or crackle. HEART: S1, S2 audible. ABDOMEN: Soft, nontender, no rebound, no guarding. NEUROLOGIC: The patient is awake and alert, able to communicate, has difficulty walking. LABORATORY DATA: WBC is 10.3, hemoglobin 13.6, hematocrit 40, platelet of 201. Chemistry: Sodium 1 37, potassium 4.3, chloride 101, CO2 of 28, BUN 16, creatinine 0.9, blood sugar of 104. ASSESSMENT: 1. Status post fall. 2. Deconditioning and difficulty walking. 3. Facial and bilateral knee abrasions secondary to fall. 4. Improved rhabdomyolysis. 5. Coronary artery disease, status post angioplasty. 6. Mild dementia. 7. Hyperlipidemia. 8. Right carotid artery stenosis. PLAN: We will continue patient on aspirin 81 daily, Lipitor 20 mg daily, continue him on Sinemet and encourage physical therapy. We will reevaluate the patient in the a.m. Mena Duarte MD cc: [phone] TT: 02/15/2017 21:11:48 ln
[2017-02-16] MEDS: Pantoprazole 40 mg EC Tab PO SCH (06:35)
--- NOTE | 2017-02-16 12:43 | PN ---
DATE: 02/16/2017 SUBJECTIVE: The patient is a 76-year-old, seen and examined, lying in bed, seems to be comfortable, participated in therapy yesterday. He is verbally responsive, follows commands. PHYSICAL EXAMINATION: VITAL SIGNS: He is afebrile, pulse 53, respirations 16, blood pressure 108/54. LUNGS: Bilateral fair airflow, no rhonchi or crackle. HEART: S1, S2 audible. ABDOMEN: Soft, nontender, no rebound, no guarding. NEUROLOGIC: He is awake and alert, able to communicate. LABORATORY EXAMINATION: There is no new lab available today. ASSESSMENT: 1. Status post fall. 2. Parkinson disease. 3. Deconditioning and difficulty walking. 4. Hypertension. 5. History of coronary artery disease, status post angioplasty in the remote past. PLAN: We will continue patient on current medical treatment, encourage aggressive physical therapy, continue on carbidopa/levodopa. We will reevaluate patient in a.m. Mena Duarte MD cc: [phone] TT: 02/16/2017 12:42:10 Confirmation # [id number] Dictation # [id number] tn
[2017-02-17] MEDS: Pantoprazole 40 mg EC Tab PO SCH (05:38)
[2017-02-18] MEDS: Pantoprazole 40 mg EC Tab PO SCH (05:47)
--- NOTE | 2017-02-18 13:32 | PN ---
DATE: 02/18/2017 The patient is 76 years old. According to nurse, he was very agitated last night, so was given Ativa n twice. PHYSICAL EXAMINATION: GENERAL: This morning, he is sleepy, but arousable, able to follow commands. VITAL SIGNS: He is afebrile, pulse 75, respirations 18, blood pressure 1____3/72. LUNGS: Bilateral fair airflow. No rhonchi or crackle. HEART: S1, S2 audible. No murmur. ABDOMEN: Soft, nontender, obese. No hepatosplenomegaly. NEUROLOGIC: The patient is sleepy, but is arousable. EXTREMITIES: Bilateral legs, no edema. ASSESSMENT: 1. Status post altered mental status. 2. History of Parkinson's disease. 3. Status post fall with facial and bilateral knee abrasion. 4. Deconditioning and difficulty walking. 5. Hyperlipidemia. 6. Coronary artery disease, status post remote angioplasty. PLAN: I will request Dr. Patiño to evaluate the patient for his agitation and behavioral disorder to adjust his medication. Otherwise, we will continue all other medical treatment. Mena Duarte MD cc: [phone] TT: 02/18/2017 13:32:08 Confirmation # [id number] Dictation # [id number] jn
[2017-02-19] MEDS: Pantoprazole 40 mg EC Tab PO SCH (09:44)
--- NOTE | 2017-02-19 13:55 | PN ---
DATE: 02/19/2017 The patient is a 76-year-old, seen and examined, lying in bed, getting agitated at times, sleeping mo st of the time. Answers appropriately, responds to verbal commands and some discharge from both eyes . PHYSICAL EXAMINATION: VITAL SIGNS: He is afebrile, pulse 66, respirations 14, blood pressure 100/57. LUNGS: Bilateral fair airflow, no rhonchi or crackle. HEART: S1, S2 audible. ABDOMEN: Soft, nontender, no rebound, no guarding. NEUROLOGIC: The patient is awake and alert, has generalized weakness, difficulty walking. ASSESSMENT AND PLAN: 1. History of Parkinson's disease. 2. Deconditioning. 3. Difficulty walking. 4. Bilateral eye conjunctivitis. 5. Status post fall. 6. Dementia. 7. Intermittent agitation. PLAN: Discussed with who is going to evaluate the patient. We will continue current medic ation. I will order for TobraDex eyedrops and encourage ambulation. I will reevaluate the patient i n a.m. Mena Duarte MD cc: [phone] TT: 02/19/2017 13:54:18 Confirmation # [id number] Dictation # [id number] celia
[2017-02-19] MEDS: Tobramycin 0.3% OPH OINT OU SCH (19:10)
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
[2017-02-20] MEDS: Pantoprazole 40 mg EC Tab PO SCH (05:55)
[2017-02-20] MEDS: Tobramycin 0.3% OPH OINT OU SCH ×2 (09:34→17:24)
[2017-02-20] MEDS ORDERED: Ergocalciferol 50,000 Intl Units Cap PO SCH ×2 (14:30)
--- NOTE | 2017-02-20 14:48 | PN ---
DATE: 02/20/2017 SUBJECTIVE: The patient is a 76-year-old, seen and examined, sitting in chair, seems to be much more awake and alert, verbally responsive, answers appropriately. PHYSICAL EXAMINATION: VITAL SIGNS: He is afebrile, pulse 72, respirations 14, blood pressure 113/64. LUNGS: Bilateral good airflow, no rhonchi or crackle. HEART: S1, S2 audible. ABDOMEN: Soft, nontender, obese. No hepatosplenomegaly. NEUROLOGIC: The patient is awake and alert. Able to communicate. EXTREMITIES: Bilateral knee abrasions, left more than the right. Left abrasion has scabbed and slig ht erythema. LABORATORY DATA: There is no new lab available today. ASSESSMENT: 1. Status post fall. 2. Parkinson disease. 3. Deconditioning and difficulty walking. 4. Mild dementia. 5. Hyperlipidemia. 6. Coronary artery disease. PLAN: His left knee wound seems to be erythematous. I will start him on Vantin 200 twice a day. Di scussed with Kate. She will apply Bactroban to the area also. So, will reevaluate the patient in a. m. Mena Duarte MD cc: [phone] TT: 02/20/2017 14:47:19 Confirmation # [id number] Dictation # [id number] benedict
--- NOTE | 2017-02-20 16:11 | CARD ---
APPROVED REPORT EKG Measurement Heart [id number] VT [id number] <Conclusion> Normal sinus rhythm Normal ECG
[2017-02-21] MEDS: Pantoprazole 40 mg EC Tab PO SCH (05:57)
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
[2017-02-21] MEDS: Tobramycin 0.3% OPH OINT OU SCH ×2 (10:08→17:44)
[2017-02-21] MEDS ORDERED: Magnesium Hydroxide Susp 30 ml UD PO ONE (11:13)
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
--- NOTE | 2017-02-21 13:41 | PN ---
DATE: 02/21/2017 SUBJECTIVE: The patient is a 76-year-old, seen and examined. Complained of constipation, did not go for a couple of days. He states he has rectal pressure but unable to push. Otherwise he is eating and tolerating. PHYSICAL EXAMINATION: VITAL SIGNS: He is afebrile, pulse 80, respirations 14, blood pressure 106/72. LUNGS: Bilateral fair airflow, no rhonchi or crackle. HEART: S1, S2 audible. ABDOMEN: Soft, nontender, no rebound, no guarding. NEUROLOGIC: The patient is awake and alert, communicative. Ambulates with help. ASSESSMENT: 1. Constipation. 2. Parkinson's disease. 3. Deconditioning and difficulty walking. 4. Mild dementia. 5. Status post fall. 6. Left knee abrasion, improving. PLAN: We will give him Fleet enema, give him a dose of milk of magnesia. If no improvement, we will make further recommendation. Mena Duarte MD cc: [id number] TT: 02/21/2017 13:40:16 Confirmation # [id number] Dictation # [id number] kev
[2017-02-22] MEDS: Pantoprazole 40 mg EC Tab PO SCH (05:43)
[2017-02-22] MEDS: Tobramycin 0.3% OPH OINT OU SCH ×2 (10:03→17:21)
[2017-02-22 16:40] VITALS: BP 116/54; PULSE 65; RESP 20; TEMP 98.1; O2SAT 91
--- NOTE | 2017-02-22 20:51 | DS ---
The patient is 76 years old, seen and examined, sitting in chair, seems to be comfortable, eating and tolerating, communicative, answers simple questions. PHYSICAL EXAMINATION: VITAL SIGNS: He is afebrile, pulse 69, respirations 18, blood pressure 111/63. LUNGS: Bilateral fair airflow, no rhonchi or crackle. HEART: S1, S2 audible. ABDOMEN: Soft, nontender, no rebound, no guarding. NEUROLOGIC: He is awake and alert, sleepy, but arousable. EXTREMITIES: His left knee abrasion still has crust and slight erythema. Right knee seems to be hea ling. SKIN: Forehead wound has healed also. ASSESSMENT AND PLAN: 1. Status post fall. 2. Left knee contusion. 3. History of Parkinson disease. 4. Coronary artery disease, status post angioplasty. PLAN: The patient is currently doing well and I sent him home on Levaquin 250 daily for a week until local wound care done by the [facility] visiting nurse and discussed with them. The patient will be ev aluated by nurse practitioner at home. Mena Duarte MD cc: [phone] TT: 02/22/2017 20:50:46 celia
== END 2017-02-22 18:10 | disposition home or self-care (01) | DRG 556 ==
LOC: TRCU 19:56
PROVIDERS: ADMIT Internal Medicine; ATTEND Internal Medicine
PROC: F07Z9FZ Gait Training/Functional Ambulation Treatment using Assistive, Adaptive, Supportive or Protective Equipment (ICD-10-PCS; principal; 2017-02-16)
PROC: F07L6ZZ Therapeutic Exercise Treatment of Musculoskeletal System - Lower Back / Lower Extremity (ICD-10-PCS; 2017-02-16)
PROC: F07Z5FZ Bed Mobility Treatment using Assistive, Adaptive, Supportive or Protective Equipment (ICD-10-PCS; 2017-02-17)
PROC: F07Z8FZ Transfer Training Treatment using Assistive, Adaptive, Supportive or Protective Equipment (ICD-10-PCS; 2017-02-17)
PROC: F08Z2FZ Grooming/Personal Hygiene Treatment using Assistive, Adaptive, Supportive or Protective Equipment (ICD-10-PCS; 2017-02-17)
PROC: F08Z1FZ Dressing Techniques Treatment using Assistive, Adaptive, Supportive or Protective Equipment (ICD-10-PCS; 2017-02-17)
DX: R26.2 Difficulty in walking, not elsewhere classified (principal); G20 Parkinson's disease; F02.80 Dementia in other diseases classified elsewhere, unspecified severity, without behavioral disturbance, psychotic disturbance, mood disturbance, and anxiety; I65.21 Occlusion and stenosis of right carotid artery; E78.5 Hyperlipidemia, unspecified; I25.10 Atherosclerotic heart disease of native coronary artery without angina pectoris; K29.70 Gastritis, unspecified, without bleeding; F32.9 Major depressive disorder, single episode, unspecified; I10 Essential (primary) hypertension; H10.9 Unspecified conjunctivitis; R53.81 Other malaise; E55.9 Vitamin D deficiency, unspecified; R29.6 Repeated falls; K59.00 Constipation, unspecified; S80.02XD Contusion of left knee, subsequent encounter; S80.211D Abrasion, right knee, subsequent encounter; S80.212D Abrasion, left knee, subsequent encounter; Z95.5 Presence of coronary angioplasty implant and graft; S00.81XD Abrasion of other part of head, subsequent encounter; W19.XXXD Unspecified fall, subsequent encounter; Z91.81 History of falling

== ENCOUNTER 2017-03-10 11:06 | Emergency (ER) | payer MEDICARE ==
[2017-03-10 11:19] VITALS: RESP 18; BMI 33.5
[2017-03-10] MEDS ORDERED: Sodium Chloride 0.9% 500 ML IV ONE (11:19)
--- NOTE | 2017-03-10 11:22 | ED PDOC ---
Arrival/HPI - General Chief Complaint: ENT Problem Time Seen by Provider: 03/10/17 11:11 Historian: Family (Daughter) - History of Present Illness Time/Duration: Other (Several days) Symptom Onset: Gradual Symptom Course: Unchanged Severity Level: Moderate Activities at Onset: Rest Associated Symptoms (Text): 03/10/17 11:20 History of Parkinson's disease and severe dementia. Patient is unable to give any history. Patient was admitted to the hospital 3 times last month. He lives at home alone. Family lives upstairs. Daughter visiting from [facility] reports that the patient has been complaining of a sore throat and pain with swallowing for the last several days. No fever. No cough. No vomiting. No diarrhea. No rash. No travel. Appears chronically ill. Past Medical History - Infectious Disease Hx of Infectious Diseases: None - Tetanus Immunization Tetanus Immunization: Up to Date - Cardiac Hx Cardiac Disorders: Yes Hx Hypertension: Yes - Pulmonary Hx Respiratory Disorders: No - Neurological Hx Neurological Disorder: Yes Hx Dementia: Yes Hx Parkinson's Disease: Yes - HEENT Hx HEENT Disorder: Yes (hx of corneal transplant) - Renal Hx Renal Disorder: No - Endocrine/Metabolic Hx Endocrine Disorders: No - Hematological/Oncological Hx Blood Disorders: No - Integumentary Hx Dermatological Disorder: No - Musculoskeletal/Rheumatological Hx Falls: Yes (this am) - Gastrointestinal Hx Gastrointestinal Disorders: No - Genitourinary/Gynecological Hx Genitourinary Disorders: No - Psychiatric Hx Psychophysiologic Disorder: No Hx Substance Use: No - Surgical History Hx Eye Surgery: Yes (cornea transplant) - Anesthesia Hx Anesthesia: No Hx Anesthesia Reactions: No Hx Malignant Hyperthermia: No Family/Social History - Physician Review Nursing Documentation Reviewed: Yes Family/Social History: Unknown Family HX Smoking Status: Never Smoked Hx Alcohol Use: No Hx Substance Use: No Allergies/Home Meds Allergies/Adverse Reactions: Allergies Penicillins Allergy (Verified 03/10/17 11:14) RASH Benzodiazepines Adverse Reaction (Verified 03/10/17 11:14) FATIGUE Home Medications: Home Meds Medication Instructions Recorded Confirmed Carbidopa/Levodopa 2 tab PO TID 02/11/17 03/10/17 [Carbidopa-Levodopa 25-100 Tab] Cholecalciferol (Vitamin D3) 2,000 unit PO DAILY 02/11/17 03/10/17 [Vitamin D3] Daily-Rachelle 1 cap PO DAILY 02/11/17 03/10/17 Omeprazole 40 mg PO DAILY 02/11/17 03/10/17 Review of Systems - Review of Systems Systems not reviewed;Unavailable: Dementia Physical Exam Vital Signs Temp Pulse Resp BP Pulse Ox 03/10/17 13:09 74 18 140/85 97 03/10/17 11:58 98.4 F 03/10/17 11:11 99.1 F 77 18 154/69 H 95 Temperature: Afebrile Blood Pressure: Hypertensive Pulse: Regular Respiratory Rate: Normal Appearance: Positive for: Well-Appearing, Non-Toxic, Comfortable, Other ( Chronically ill-appearing) Pain Distress: None Mental Status: Positive for: other (Oriented 1 only) - Systems Exam Head: Present: Atraumatic, Normocephalic Pupils: Present: PERRL Extroacular Muscles: Present: EOMI Conjunctiva: Present: Normal Ears: Present: NORMAL TM, Normal Canal. No: Erythema Mouth: Present: Moist Mucous Membranes Pharnyx: Present: ERYTHEMA. No: EXUDATE, TONSILS ENLARGED Neck: Present: Other (Limited range of motion). No: MIDLINE TENDERNESS, Paraspinal Tenderness Respiratory/Chest: Present: Clear to Auscultation, Good Air Exchange, Decreased Breath Sounds. No: Respiratory Distress, Accessory Muscle Use Cardiovascular: Present: Regular Rate and Rhythm, Normal S1, S2. No: Murmurs Abdomen: Present: Normal Bowel Sounds. No: Tenderness, Distention, Peritoneal Signs, Rebound, Guarding Upper Extremity: Present: Normal Inspection. No: Cyanosis, Edema Lower Extremity: Present: Normal Inspection. No: Edema Neurological: Present: GCS=15, CN II-XII Intact, Speech Normal, Motor Func Grossly Intact Skin: Present: Warm, Dry, Normal Color. No: Rashes Medical Decision Making ED Course and Treatment: 03/10/17 13:02 EKG shows normal sinus rhythm rate approximately [address] or T-wave changes 03/10/17 14:32 Discussed in detail with daughter and also with . Daughter is not interested in skilled nursing placement. She is trying to find overnight home health care. I also discussed this with PMD and she will help the daughter make arrangements for this. Patient will be discharged home to follow up in the office tomorrow. - Lab Interpretations Lab Results: 03/10/17 11:50 03/10/17 12:00 Lab Results 03/10/17 12:00: Sodium 137, Potassium 4.4, Chloride 102, Carbon Dioxide 28, Anion Gap 11, BUN 20, Creatinine 1.0, Est GFR ( Amer) > 60, Est GFR (Non- Af Amer) > 60, Random Glucose 105, Calcium 9.5, Total Bilirubin 0.6, AST 27, ALT 14, Alkaline Phosphatase 106, Lactate Dehydrogenase 348, Total Creatine Kinase 43, Troponin I < 0.01 D, Total Protein 7.0, Albumin 3.7, Globulin 3.3, Albumin/Globulin Ratio 1.1 03/10/17 11:50: WBC 9.9, RBC 3.90, Hgb 12.4 L, Hct 37.3 L, MCV 95.6, MCH 31.8, MCHC 33.2, RDW 14.5, Plt Count 189, MPV 10.1, Gran % 76.4 H, Lymph % (Auto) 14.5 L, Wagoner % (Auto) 8.1 H, Eos % (Auto) 0.8 L, Baso % (Auto) 0.2, Gran # 7.59 H, Lymph # 1.4, Wagoner # 0.8 H, Eos # 0.1, Baso # 0.02 03/10/17 11:25: Grp A Beta Strep Ag Negative - RAD Interpretation Radiology Orders: 03/10/17 11:19 CHEST PORTABLE [RAD] Stat Chest 1 view shows kyphosis with no infiltrate or effusion Cotton Expert: ED Physician - Medication Orders Current Medication Orders: Discontinued Medications Sodium Chloride (Sodium Chloride 0.9%) 500 mls @ 500 mls/hr IV ONCE ONE Stop: 03/10/17 12:18 Last Admin: 03/10/17 11:48 Dose: 500 mls/hr Disposition/Present on Arrival - Present on Arrival Any Indicators Present on Arrival: No History of DVT/PE: No History of Uncontrolled Diabetes: No Urinary Catheter: No History of Decub. Ulcer: No History Surgical Site Infection Following: None - Disposition Have Diagnosis and Disposition been Completed?: Yes Diagnosis: Parkinsons disease, Pharyngitis Disposition: HOME/ ROUTINE Disposition Time: 14:33 Patient Plan: Discharge Condition: FAIR Discharge Instructions (ExitCare): Parkinson Disease (ED), Pharyngitis (ED) Additional Instructions: Symptomatic treatment. Follow-up with tomorrow. Follow up in ER as needed. Referrals: Mena Duarte MD [Staff Provider] - Follow up with primary
[2017-03-10 11:55] LABS: BASO # 0.02 K/mm3 (0.0-2.0); BASO % 0.2 % (0.0-3.0); EOS # 0.1 (0.0-0.7); EOS % 0.8 % (1.5-5.0); GRAN # 7.59 (1.4-6.5); GRAN % 76.4 % (50.0-68.0); HEMOGLOBIN 12.4 gm/dL (14.0-18.0); LYMPH # 1.4 (1.2-3.4); LYMPH % 14.5 % (22.0-35.0); MEAN CELL VOLUME 95.6 fL (80.0-105.0); MEAN CORPUSCULAR HEMOGLOBIN 31.8 pg (25.0-35.0); MEAN CORPUSCULAR HGB CONC 33.2 g/dl (31.0-37.0); MEAN PLATELET VOLUME 10.1 fl (7.0-11.0); MONO # 0.8 (0.1-0.6); MONO % 8.1 % (1.0-6.0); PLATELET COUNT 189 10^3/uL (120.0-450.0); RED CELL DISTRIBUTION WIDTH 14.5 % (11.5-14.5); WHITE BLOOD COUNT 9.9 10^3/ul (4.5-11.0)
--- NOTE | 2017-03-10 13:01 | RAD ---
HISTORY: Weakness. COMPARISON: 02/11/2017 FINDINGS: LUNGS: No active pulmonary disease. PLEURA: No significant pleural effusion identified, no pneumothorax apparent. CARDIOVASCULAR: No radiographic findings to suggest acute or significant cardiovascular disease. OSSEOUS STRUCTURES: No significant abnormalities. VISUALIZED UPPER ABDOMEN: Normal. OTHER FINDINGS: None. IMPRESSION: No active disease. Limitations of the current examination: Kyphosis precludes meaningful assessment of the upper lung mcgregor. Otherwise no change.
[2017-03-10 13:02] LABS: ALB/GLOB RATIO 1.1 (1.1-1.8); ALBUMIN 3.7 g/dL (3.0-4.8); ALT/SGPT 14 U/L (7-56); AST/SGOT 27 U/L (15-59); BLOOD UREA NITROGEN 20 mg/dL (7-21); CALCIUM 9.5 mg/dL (8.4-10.5); GFR AFRICAN-AMERICAN > 60; GFR NON-AFRICAN AMERICAN > 60
[2017-03-10 13:32] LABS: TROPONIN I < 0.01 ng/mL
[2017-03-10 14:36] VITALS: BP 139/64; PULSE 71; TEMP 98.7; O2SAT 96
--- NOTE | 2017-03-10 20:18 | CARD ---
APPROVED REPORT EKG Measurement Heart [id number] <Conclusion> Normal sinus rhythm Normal ECG
== END 2017-03-10 15:00 | disposition home or self-care (01) ==
LOC: ED 11:06
DX: J02.9 Acute pharyngitis, unspecified (principal); G20 Parkinson's disease; F02.80 Dementia in other diseases classified elsewhere, unspecified severity, without behavioral disturbance, psychotic disturbance, mood disturbance, and anxiety; I10 Essential (primary) hypertension
CPT/HCPCS: 71010; 80053; 82550; 83615; 84484; 85025; 87070; 87430; 93005; 99283; J7040

== ENCOUNTER 2017-03-10 18:29 | Inpatient (IN) | payer MEDICARE ==
[2017-03-10 18:30] VITALS: BMI 41.5
[2017-03-10] MEDS ORDERED: Levalbuterol 1.25 MG/3 ML Inhal Soln UD IH STA (19:05)
[2017-03-10] MEDS ORDERED: guaiFENesin 200 mg/10 ml Syrup UD PO STA (19:05)
[2017-03-10] MEDS ORDERED: Acetaminophen 650mg/20.3ml solution UD PO STA (19:06)
--- NOTE | 2017-03-10 19:23 | ED PDOC ---
Arrival/HPI - General Chief Complaint: ENT Problem Time Seen by Provider: 03/10/17 18:34 Historian: Patient, Family - History of Present Illness Narrative History of Present Illness (Text): 03/10/17 19:30 A 76 year old male, whose past medical history includes Parkinson's disease, hypertension, coronary artery disease and severe kyphosis of neck, was seen in emergency department earlier today and was discharged. Patient reports a cough and sore throat for the past 5 days. Family states patient is unable to swallow any food or liquids to eat. Patient's family took patient home and report shortness of breath at home. Patient denies any other complaints at this time. PMD: Dr. Ly Time/Duration: Other (5 days) Symptom Onset: Sudden Symptom Course: Unchanged Activities at Onset: Rest Context: Home Past Medical History - Provider Review Nursing Documentation Reviewed: Yes - Infectious Disease Hx of Infectious Diseases: None - Tetanus Immunization Tetanus Immunization: Up to Date - Cardiac Hx Cardiac Disorders: Yes Hx Hypertension: Yes - Pulmonary Hx Respiratory Disorders: No - Neurological Hx Neurological Disorder: Yes Hx Dementia: Yes Hx Parkinson's Disease: Yes - HEENT Hx HEENT Disorder: Yes (hx of corneal transplant) - Renal Hx Renal Disorder: No - Endocrine/Metabolic Hx Endocrine Disorders: No - Hematological/Oncological Hx Blood Disorders: No - Integumentary Hx Dermatological Disorder: Yes - Musculoskeletal/Rheumatological Hx Falls: Yes (this am) - Gastrointestinal Hx Gastrointestinal Disorders: No - Genitourinary/Gynecological Hx Genitourinary Disorders: No - Psychiatric Hx Psychophysiologic Disorder: No Hx Substance Use: No - Surgical History Hx Eye Surgery: Yes (cornea transplant) - Anesthesia Hx Anesthesia: No Hx Anesthesia Reactions: No Hx Malignant Hyperthermia: No Family/Social History - Physician Review Nursing Documentation Reviewed: Yes Family/Social History: No Known Family HX Smoking Status: Never Smoked Hx Alcohol Use: No Hx Substance Use: No Allergies/Home Meds Allergies/Adverse Reactions: Allergies Penicillins Allergy (Verified 03/10/17 18:46) RASH Benzodiazepines Adverse Reaction (Verified 03/10/17 18:46) FATIGUE Home Medications: Home Meds Medication Instructions Recorded Confirmed Carbidopa/Levodopa 2 tab PO TID 02/11/17 03/10/17 [Carbidopa-Levodopa 25-100 Tab] Cholecalciferol (Vitamin D3) 2,000 unit PO DAILY 02/11/17 03/10/17 [Vitamin D3] Daily-Rachelle 1 cap PO DAILY 02/11/17 03/10/17 Omeprazole 40 mg PO DAILY 02/11/17 03/10/17 Review of Systems - Physician Review All systems were reviewed & negative as marked: Yes - Review of Systems ENT: Sore Throat, Other (pain with swallowing) Respiratory: SOB, Cough Physical Exam Vital Signs Reviewed: Yes Vital Signs Temp Pulse Resp BP Pulse Ox 03/10/17 20:52 98.7 F 77 18 169/83 H 97 03/10/17 18:33 98.4 F 77 16 126/87 97 Temperature: Afebrile Blood Pressure: Normal Pulse: Regular Respiratory Rate: Normal Appearance: Positive for: Non-Toxic Pain Distress: None Mental Status: Positive for: Alert and Oriented X 3 - Systems Exam Head: Present: Atraumatic, Normocephalic Pupils: Present: PERRL Conjunctiva: Present: Normal Mouth: Present: Moist Mucous Membranes Pharnyx: Present: Normal. No: ERYTHEMA, EXUDATE Neck: Present: Other (kyphosis) Respiratory/Chest: Present: Clear to Auscultation, Good Air Exchange. No: Respiratory Distress, Accessory Muscle Use Cardiovascular: Present: Regular Rate and Rhythm, Normal S1, S2. No: Murmurs Abdomen: Present: Normal Bowel Sounds. No: Tenderness, Distention, Peritoneal Signs Back: Present: Normal Inspection Upper Extremity: Present: Normal Inspection. No: Cyanosis, Edema Lower Extremity: Present: Normal Inspection. No: Edema Neurological: Present: GCS=15, CN II-XII Intact, Speech Normal Skin: Present: Warm, Dry, Normal Color. No: Rashes Psychiatric: Present: Alert, Oriented x 3, Normal Insight, Normal Concentration Medical Decision Making ED Course and Treatment: 03/10/17 19:14 Impression: A 76 year old male with cough, sore throat and pain with swallowing. Differential Diagnosis included but are not limited to: pharyngitis vs epiglottitis vs pneumonia Plan: -- CT neck and chest -- Robitussin, Tylenol, Xopenex -- Reassess and disposition Prior Visits: Notes and results from previous visits were reviewed. Patient last reported to the emergency department today for evaluation of sore throat and pain with swallowing. Progress Notes: CT Neck Without Intravenous Contrast FINDINGS: Evaluation of the neck is by musculoskeletal deformity and patient positioning Brain: Visualized portion of the brain is difficult to evaluate. Mastoids: Left mastoid tip is aerated. Airway: Nasal cavity and nasopharynx are not included on the images. Oropharynx is not included on the images. Hypopharynx is incompletely imaged. Epiglottis and aryepiglottic folds are grossly unremarkable. Subglottic trachea is normal in caliber. There is secretions in the trachea. Esophagus: Upper cervical esophagus is decompressed. Mid and distal cervical esophagus and visualized thoracic esophagus distended with air. Thyroid: Thyroid is not optimally imaged Vascular: Vascular structures cannot be adequately evaluated Nodes: There is no pathologic adenopathy. Lung apices Lung apices are clear. Bony structures: There are degenerative changes in the cervical spine. There is exaggeration of the cervical lordosis. There is cervical scoliosis. IMPRESSION: No obstruction of the visualized airway; small secretions in the upper trachea; gaseous distention of the esophagus; limited evaluation of the neck secondary to patient condition CT Chest Without Intravenous Contrast FINDINGS: Artifacts: Streak artifact degrades image quality. Motion artifact degrades image quality. Lungs and pleural spaces: Trachea and main bronchi are patent. There is mild scarring and volume loss in the right lung. There is focal atelectasis and scarring in the right middle lobe. There is atelectasis/scarring at the right base. Left lung is hyperinflated. There is no focal consolidation on the left. There is minimal subsegmental atelectasis/scarring at the left base. There are no effusions. Heart and vasculature: The heart is enlarged. There are coronary calcifications. Aorta and main pulmonary artery are normal in caliber.There are vascular calcifications. Mediastinum: There is shotty mediastinal nodes.Gayatri are not optimally evaluated without contrast material. The esophagus is distended with air. There is an air-fluid level in the mid esophagus. There is a very small hiatal hernia. Thyroid: Thyroid is not optimally demonstrated. Bones/joints: Bony structures are osteopenic. There is exaggeration of the thoracic kyphosis. Soft tissues: unremarkable Upper abdomen: There are no acute abnormalities in the visualized portion of the abdomen. IMPRESSION: Mild right-sided volume loss with focal scarring in the right middle lobe, mild mediastinal shift to the right, no focal pneumonia; distended esophagus with small air fluid level in the midesophagus; exaggeration of the thoracic kyphosis. Dictated and Authenticated by: Norah Nguyen MD 03/10/2017 9:48 PM Eastern Time ([place] & [place]) Patient's labs from earlier are reviewed. CT results are noted. AF level in the esophagus is present. Concern for possible esophageal disorder. Patient given oral liquid here in the ED and appears to have trouble clearing it. Will need further observation in the hospital and obtain GI and ENT consult. 03/10/17 22:[address] Duarte. - RAD Interpretation Radiology Orders: 03/10/17 19:05 NECK & CHEST W/O CONTRAST [CT] Stat - Medication Orders Current Medication Orders: Discontinued Medications Acetaminophen (Tylenol 650mg/20.3ml Solution Ud) 640 mg PO ONCE STA Stop: 03/10/17 19:07 Last Admin: 03/10/17 22:08 Dose: 640 mg Guaifenesin (Robitussin) 400 mg PO ONCE STA Stop: 03/10/17 19:06 Last Admin: 03/10/17 19:33 Dose: Not Given Non-Admin Reason: NPO Levalbuterol HCl (Xopenex) 1.25 mg IH STAT STA Stop: 03/10/17 19:06 Last Admin: 03/10/17 19:33 Dose: 1.25 mg - Scribe Statement The provider has reviewed the documentation as recorded by the Yeison Shelton Provider Scribe Attestation: All medical record entries made by the Daribmarina were at my direction and personally dictated by me. I have reviewed the chart and agree that the record accurately reflects my personal performance of the history, physical exam, medical decision making, and the department course for this patient. I have also personally directed, reviewed, and agree with the discharge instructions and disposition. Disposition/Present on Arrival - Present on Arrival Any Indicators Present on Arrival: No History of DVT/PE: No History of Uncontrolled Diabetes: No Urinary Catheter: No History of Decub. Ulcer: No History Surgical Site Infection Following: None - Disposition Have Diagnosis and Disposition been Completed?: Yes Diagnosis: Trouble swallowing Disposition: HOSPITALIZED Disposition Time: 22:30 Patient Plan: Observation Condition: FAIR Referrals: Brandy Ly MD [Primary Care Provider] - Follow up with primary
--- NOTE | 2017-03-10 21:48 | CT ---
EXAM: CT Neck Without Intravenous Contrast CLINICAL HISTORY: 76 years old, male; Signs and symptoms; Shortness of breath; Dyspnea / difficulty breathing; Additional info: Trouble swallowing and SOB TECHNIQUE: Axial computed tomography images of the neck without intravenous contrast. This CT exam was performed using one or more of the following dose reduction techniques: automated exposure control, adjustment of the mA and/or kV according to patient size, and/or use of iterative reconstruction technique. MIP reconstructed images were created and reviewed. Coronal and sagittal reformatted images were created and reviewed. COMPARISON: There are no prior studies for comparison. FINDINGS: Evaluation of the neck is by musculoskeletal deformity and patient positioning Brain: Visualized portion of the brain is difficult to evaluate. Mastoids: Left mastoid tip is aerated. Airway: Nasal cavity and nasopharynx are not included on the images. Oropharynx is not included on the images. Hypopharynx is incompletely imaged. Epiglottis and aryepiglottic folds are grossly unremarkable. Subglottic trachea is normal in caliber. There is secretions in the trachea. Esophagus: Upper cervical esophagus is decompressed. Mid and distal cervical esophagus and visualized thoracic esophagus distended with air. Thyroid: Thyroid is not optimally imaged Vascular: Vascular structures cannot be adequately evaluated Nodes: There is no pathologic adenopathy. Lung apices Lung apices are clear. Bony structures: There are degenerative changes in the cervical spine. There is exaggeration of the cervical lordosis. There is cervical scoliosis. IMPRESSION: No obstruction of the visualized airway; small secretions in the upper trachea; gaseous distention of the esophagus; limited evaluation of the neck secondary to patient condition EXAM: CT Chest Without Intravenous Contrast CLINICAL HISTORY: 76 years old, male; Signs and symptoms; Shortness of breath; Dyspnea / difficulty breathing; Additional info: Trouble swallowing and SOB TECHNIQUE: Axial computed tomography images of the chest without intravenous contrast. This CT exam was performed using one or more of the following dose reduction techniques: automated exposure control, adjustment of the mA and/or kV according to patient size, and/or use of iterative reconstruction technique. MIP reconstructed images were created and reviewed. Coronal and sagittal reformatted images were created and reviewed. EXAM DATE/TIME: 03/10/2017 7:05 PM COMPARISON: There are no prior studies for comparison. FINDINGS: Artifacts: Streak artifact degrades image quality. Motion artifact degrades image quality. Lungs and pleural spaces: Trachea and main bronchi are patent. There is mild scarring and volume loss in the right lung. There is focal atelectasis and scarring in the right middle lobe. There is atelectasis/scarring at the right base. Left lung is hyperinflated. There is no focal consolidation on the left. There is minimal subsegmental atelectasis/scarring at the left base. There are no effusions. Heart and vasculature: The heart is enlarged. There are coronary calcifications. Aorta and main pulmonary artery are normal in caliber.There are vascular calcifications. Mediastinum: There is shotty mediastinal nodes.Gayatri are not optimally evaluated without contrast material. The esophagus is distended with air. There is an air-fluid level in the mid esophagus. There is a very small hiatal hernia. Thyroid: Thyroid is not optimally demonstrated. Bones/joints: Bony structures are osteopenic. There is exaggeration of the thoracic kyphosis. Soft tissues: unremarkable Upper abdomen: There are no acute abnormalities in the visualized portion of the abdomen. IMPRESSION: Mild right-sided volume loss with focal scarring in the right middle lobe, mild mediastinal shift to the right, no focal pneumonia; distended esophagus with small air fluid level in the midesophagus; exaggeration of the thoracic kyphosis
[2017-03-10] MEDS ORDERED: Sodium Chloride 0.9% 1,000 ML IV STA (22:54)
[2017-03-11] MEDS ORDERED: Albuterol-Ipratrop 3 mg / 0.5 (3 ml) UD IH ONE ×2 (03:42→06:14)
--- NOTE | 2017-03-11 04:43 | CP.PCM.PN ---
Subjective - Date & Time of Evaluation Date of Evaluation: 03/11/17 Time of Evaluation: 04:37 - Subjective Subjective: called by nurse pt is sob . pt has hx of parkinsonism cad htn . flexed neck. Objective - Vital Signs/Intake and Output Vital Signs (last 24 hours): Temp Pulse Resp BP Pulse Ox 98.2 F 73 21 144/70 98 03/11/17 02:09 03/11/17 02:09 03/11/17 02:09 03/11/17 02:09 03/11/17 00:41 - Medications Medications: Current Medications Acetaminophen (Tylenol 325mg Tab) 650 mg PO Q6H PRN PRN Reason: Fever >100.4 F Aspirin (Aspirin Chewable) 81 mg PO DAILY ANNALISA Atorvastatin Calcium (Lipitor) 10 mg PO DIN ANNALISA Last Admin: 03/11/17 00:53 Dose: Not Given Carbidopa/Levodopa (Sinemet) 2 tab PO TID ANNALISA Sodium Chloride (Sodium Chloride 0.9%) 1,000 mls @ 50 mls/hr IV .Q20H STA Stop: 03/11/17 18:53 Last Admin: 03/10/17 23:55 Dose: 50 mls/hr Quetiapine Fumarate (Seroquel) 25 mg PO 1000,2200 ANNALISA PRN Reason: Protocol Sertraline HCl (Zoloft) 25 mg PO BID ANNALISA - Constitutional Appears: No Acute Distress - Head Exam Head Exam: NORMOCEPHALIC - Eye Exam Pupil Exam: PERRL - ENT Exam ENT Exam: Mucous Membranes Moist - Neck Exam Additional comments: severly flexed neck. - Respiratory Exam Respiratory Exam: Wheezes - Cardiovascular Exam Cardiovascular Exam: RRR, +S1, +S2 - GI/Abdominal Exam GI & Abdominal Exam: Normal Bowel Sounds - Rectal Exam Rectal Exam: Deferred - Neurological Exam Neurological Exam: Alert, Oriented x3 - Psychiatric Exam Psychiatric exam: Normal Affect - Skin Skin Exam: Dry, Warm Assessment and Plan - Assessment and Plan (Free Text) Assessment: sob / wheezing ?copd . parkinsonism /dysphagia /? neuromuscular abnormalities. Plan: duo nebs stat. soft neck collar.
[2017-03-11 06:53] LABS: ARTERIAL BLOOD GAS HCO3 23.7 mmol/L (21-28); ARTERIAL BLOOD GAS HEMOGLOBIN 11.7 g/dL (11.7-17.4); ARTERIAL BLOOD GAS O2 CAPACITY 16.2 mL/dl (16-24); ARTERIAL BLOOD GAS O2 CONTENT 15.9 ML/dl (15-23); ARTERIAL BLOOD GAS O2 SAT 98.3 % (95-98); ARTERIAL BLOOD GAS PCO2 40 mm/Hg (35-45); ARTERIAL BLOOD GAS PH 7.38 (7.35-7.45); ARTERIAL BLOOD GAS TCO2 24.9 mmol.L (22-28)
--- NOTE | 2017-03-11 11:10 | CP.PCM.HP ---
History of Present Illness - History of Present Illness History of Present Illness: Pt coming in to the hospital because of difficulty in swallowing fluids and food. He has a hx of Parkinson's and was recently discharged from the hospital. No CP/SOB/N/V/MORIN. Spoke to family (daughter) at bedside to get update. Present on Admission - Present on Admission Any Indicators Present on Admission: No History of DVT/PE: No History of Uncontrolled Diabetes: No Urinary Catheter: No Review of Systems - Constitutional Constitutional: absent: Anorexia, Headache, Lethargy, Night Sweats - EENT Eyes: absent: Decreased Night Vision, Itchy Eyes Ears: absent: Disequilibrium, Dizziness Nose/Mouth/Throat: Dysphagia. absent: Change in Voice, Dry Mouth, Hoarsness, Tongue Swelling - Cardiovascular Cardiovascular: absent: Chest Pain, Diaphoresis, Dyspnea, Dyspnea on Exertion, Lightheadedness - Respiratory Respiratory: absent: Stridor, Pain on Inspiration, Chest Congestion - Gastrointestinal Gastrointestinal: absent: Odynophagia - Genitourinary Genitourinary: absent: Nocturia, Urinary Incontinence, Freq UTI - Musculoskeletal Musculoskeletal: absent: Joint Swelling, Limited Range of Motion, Numbness - Integumentary Integumentary: absent: Changing Lesions - Neurological Neurological: absent: Behavioral Changes, Dizziness, Numbness - Psychiatric Psychiatric: absent: Homicidal Ideation, Hopelessness - Endocrine Endocrine: absent: Fatigue, Increase in Ring/Shoe/Hat Size - Hematologic/Lymphatic Hematologic: absent: Easy Bruising Past Patient History - Infectious Disease Hx of Infectious Diseases: None - Tetanus Immunizations Tetanus Immunization: Up to Date - Past Medical History & Family History Past Family History: Reviewed and not pertinent - Past Social History Smoking Status: Never Smoked - CARDIAC Hx Cardiac Disorders: Yes Hx Hypertension: Yes - PULMONARY Hx Respiratory Disorders: No - NEUROLOGICAL Hx Neurological Disorder: Yes Hx Parkinson's Disease: Yes - HEENT Hx HEENT Problems: Yes (hx of corneal transplant) - RENAL Hx Chronic Kidney Disease: No - ENDOCRINE/METABOLIC Hx Endocrine Disorders: No - HEMATOLOGICAL/ONCOLOGICAL Hx Blood Disorders: No - INTEGUMENTARY Hx Dermatological Problems: Yes - MUSCULOSKELETAL/RHEUMATOLOGICAL Hx Falls: Yes - GASTROINTESTINAL Hx Gastrointestinal Disorders: No - GENITOURINARY/GYNECOLOGICAL Hx Genitourinary Disorders: No - PSYCHIATRIC Hx Psychophysiologic Disorder: No - SURGICAL HISTORY Hx Surgeries: Yes - ANESTHESIA Hx Anesthesia: No Hx Anesthesia Reactions: No Hx Malignant Hyperthermia: No Meds Allergies/Adverse Reactions: Allergies Allergy/AdvReac Type Severity Reaction Status Date / Time Penicillins Allergy RASH Verified 03/10/17 18:46 Benzodiazepines AdvReac FATIGUE Verified 03/10/17 18:46 Physical Exam - Constitutional Appears: Non-toxic, No Acute Distress - Head Exam Head Exam: ATRAUMATIC, NORMAL INSPECTION, NORMOCEPHALIC - Eye Exam Eye Exam: EOMI, Normal appearance, PERRL - ENT Exam ENT Exam: Mucous Membranes Moist, Normal Exam - Neck Exam Neck exam: Positive for: Normal Inspection - Respiratory Exam Respiratory Exam: Clear to Auscultation Bilateral, NORMAL BREATHING PATTERN - Cardiovascular Exam Cardiovascular Exam: REGULAR RHYTHM, RRR, +S1, +S2 - GI/Abdominal Exam GI & Abdominal Exam: Normal Bowel Sounds, Soft. absent: Hypoactive Bowel Sounds , Mass, Tenderness - Rectal Exam Rectal Exam: NORMAL INSPECTION - Extremities Exam Extremities exam: Positive for: normal inspection - Neurological Exam Neurological exam: Alert, CN II-XII Intact, Reflexes Normal - Psychiatric Exam Psychiatric exam: Normal Affect, Normal Mood - Skin Skin Exam: Dry, Intact, Normal Color, Warm Results - Vital Signs Recent Vital Signs: Last Vital Signs Temp 98.3 F 03/11/17 07:30 Pulse 73 03/11/17 07:30 Resp 20 03/11/17 07:30 BP 140/74 03/11/17 07:30 Pulse Ox 96 03/11/17 07:30 - Labs Labs: Laboratory Results - last 24 hr 03/11/17 06:51 pCO2 40 pO2 83.0 HCO3 23.7 ABG pH 7.38 ABG Total CO2 24.9 ABG O2 Saturation 98.3 H ABG O2 Content 15.9 ABG Base Excess -1.3 ABG Hemoglobin 11.7 ABG Carboxyhemoglobin 1.7 H POC ABG HHb (Measured) 1.7 ABG Methemoglobin 0.8 ABG O2 Capacity 16.2 Hgb O2 Saturation 95.9 FiO2 32.0 Assessment & Plan - Assessment and Plan (Free Text) Assessment: Dysphagia Parkinson HTN Dylipidemia CAD Kyphosis Plan: Pt will need Endoscopy for evaluation. Spoke to GI. Spoke to family. Meds reviewed. On IVF. - Date & Time Date: 03/11/17 Time: 11:09
--- NOTE | 2017-03-11 11:11 | CP.PCM.CON ---
<Michelle Diamond - Last Filed: 03/11/17 11:09> History of Present Illness - History of Present Illness History of Present Illness: Seen and examined at the bedside. The chart was reviewed. Request for consult is for dysphagia. HPI: This is a 76-year-old male with a past medical history of Parkinson's disease, hypertension, coronary artery disease, dementia, and kyphosis of the neck came to the emergency room earlier yesterday with complaints of coughing and sore throat for the past 5 days to patient was initially discharged home but returned to the emergency room with complaints of shortness of breath at home as well as problems swallowing with foods and liquids. The patient is seen this morning at the bedside with his daughter present from [facility] and reports that the patient has difficulty swallowing solids liquids he is okay. The patient is not complaining of any collection of saliva orally or drooling. This has been going on for 2 days, no nausea or vomiting. The patient has poor dentition doesn't have any dentures. Normally the family the patient's food. Denies any change in bowel habits no reports of any melena or bright red blood per rectum. The [id number] Kasia who is power of banking attorney reports that the patient had an endoscopy many years ago. No further complaints of shortness of breath chest pains or abdominal pain. Past medical history hypertension, dementia, Parkinson's disease, coronary artery disease, status post cardiac catheter, patient is not on any anticoagulant as per family. History of falls, hyperlipidemia. Surgical history: His corneal transplant Social history: Denies smoking, EtOH or drugs Family history: Noncontributory at this time Medications: Reviewed as per MAR ROS: Systems reviewed and positive finding see HPI Neck/chest CT: Reports no obstruction, shotty mediastinal lymph nodes. Impression: Mild right-sided volume loss with focal scarring in right middle lobe and mild mediastinal shift to the right distended esophagus with small air mid esophagus, thoracic kyphosis. Past Patient History - Infectious Disease Hx of Infectious Diseases: None - Tetanus Immunizations Tetanus Immunization: Up to Date - Past Social History Smoking Status: Never Smoked - CARDIAC Hx Cardiac Disorders: Yes Hx Hypertension: Yes - PULMONARY Hx Respiratory Disorders: No - NEUROLOGICAL Hx Neurological Disorder: Yes Hx Parkinson's Disease: Yes - HEENT Hx HEENT Problems: Yes (hx of corneal transplant) - RENAL Hx Chronic Kidney Disease: No - ENDOCRINE/METABOLIC Hx Endocrine Disorders: No - HEMATOLOGICAL/ONCOLOGICAL Hx Blood Disorders: No - INTEGUMENTARY Hx Dermatological Problems: Yes - MUSCULOSKELETAL/RHEUMATOLOGICAL Hx Falls: Yes - GASTROINTESTINAL Hx Gastrointestinal Disorders: No - GENITOURINARY/GYNECOLOGICAL Hx Genitourinary Disorders: No - PSYCHIATRIC Hx Psychophysiologic Disorder: No - SURGICAL HISTORY Hx Surgeries: Yes - ANESTHESIA Hx Anesthesia: No Hx Anesthesia Reactions: No Hx Malignant Hyperthermia: No Meds Allergies/Adverse Reactions: Allergies Allergy/AdvReac Type Severity Reaction Status Date / Time Penicillins Allergy RASH Verified 03/10/17 18:46 Benzodiazepines AdvReac FATIGUE Verified 03/10/17 18:46 - Medications Medications: Current Medications Acetaminophen (Tylenol 325mg Tab) 650 mg PO Q6H PRN PRN Reason: Fever >100.4 F Aspirin (Aspirin Chewable) 81 mg PO DAILY ON LICENSE OF [facility] Atorvastatin Calcium (Lipitor) 10 mg PO DIN ON LICENSE OF [facility] Last Admin: 03/11/17 00:53 Dose: Not Given Carbidopa/Levodopa (Sinemet) 2 tab PO TID ON LICENSE OF [facility] Docusate Sodium (Colace) 100 mg PO BID ON LICENSE OF [facility] Sodium Chloride (Sodium Chloride 0.9%) 1,000 mls @ 50 mls/hr IV .Q20H [facility] Stop: 03/11/17 18:53 Last Admin: 03/10/17 23:55 Dose: 50 mls/hr Polyethylene Glycol (Miralax) 17 gm PO BID ON LICENSE OF [facility] Quetiapine Fumarate (Seroquel) 25 mg PO 1000,2200 [facility] PRN Reason: Protocol Sertraline HCl (Zoloft) 25 mg PO BID ON LICENSE OF [facility] Physical Exam - Constitutional Appears: No Acute Distress - Head Exam Head Exam: NORMAL INSPECTION - Eye Exam Eye Exam: Normal appearance. absent: Scleral icterus Pupil Exam: NORMAL ACCOMODATION - ENT Exam ENT Exam: Mucous Membranes Moist - Neck Exam Neck exam: Positive for: Normal Inspection - Respiratory Exam Respiratory Exam: Decreased Breath Sounds, NORMAL BREATHING PATTERN. absent: Rales, Rhonchi, Respiratory Distress - Cardiovascular Exam Cardiovascular Exam: +S1, +S2 - GI/Abdominal Exam GI & Abdominal Exam: Normal Bowel Sounds, Soft. absent: Distended, Guarding, Rebound, Tenderness - Extremities Exam Extremities exam: Positive for: pedal pulses present. Negative for: calf tenderness, pedal edema Additional comments: left knee with scab status post fall, striae, no drainage. - Neurological Exam Neurological exam: Alert Additional comments: history of dementia the patient is awake alert and seems aware of surroundings - Skin Skin Exam: Dry, Warm Results - Vital Signs Recent Vital Signs: Last Vital Signs Temp 98.3 F 03/11/17 07:30 Pulse 73 03/11/17 07:30 Resp 20 03/11/17 07:30 BP 140/74 03/11/17 07:30 Pulse Ox 96 03/11/17 07:30 - Labs Labs: Laboratory Results - last 24 hr 03/11/17 06:51 pCO2 40 pO2 83.0 HCO3 23.7 ABG pH 7.38 ABG Total CO2 24.9 ABG O2 Saturation 98.3 H ABG O2 Content 15.9 ABG Base Excess -1.3 ABG Hemoglobin 11.7 ABG Carboxyhemoglobin 1.7 H POC ABG HHb (Measured) 1.7 ABG Methemoglobin 0.8 ABG O2 Capacity 16.2 Hgb O2 Saturation 95.9 FiO2 32.0 Assessment & Plan - Assessment and Plan (Free Text) Assessment: Assessment: Dysphagia, rule out stricture, rule out foreign body Parkinson's disease Severe kyphosis of the neck Hypertension. Coronary artery disease status post cardiac catheter History of falls Plan: Nothing by mouth, continue IV fluids for hydration Discuss with family and patient regarding endoscopy today Continue bowel regimen on MiraLAX and stool softener On Sinemet Thank you for this consultation and for allowing us to participate in your patient's care, will make further recommendations based upon patient's clinical. Seen and discussed with Dr. Scott. <Daniel Scott V - Last Filed: 03/11/17 23:50> Meds - Medications Medications: Current Medications Acetaminophen (Tylenol 325mg Tab) 650 mg PO Q6H PRN PRN Reason: Fever >100.4 F Aspirin (Aspirin Chewable) 81 mg PO DAILY ON LICENSE OF [facility] Atorvastatin Calcium (Lipitor) 10 mg PO DIN ON LICENSE OF [facility] Last Admin: 03/11/17 19:22 Dose: Not Given Carbidopa/Levodopa (Sinemet) 2 tab PO TID ON LICENSE OF [facility] Last Admin: 03/11/17 19:21 Dose: Not Given Dexamethasone (Decadron Inj) 4 mg IVP Q8 ON LICENSE OF [facility] Last Admin: 03/11/17 22:13 Dose: 4 mg Docusate Sodium (Colace) 100 mg PO BID ON LICENSE OF [facility] Last Admin: 03/11/17 18:21 Dose: Not Given Clindamycin Phosphate 600 mg/ (Sodium Chloride) 54 mls @ 102 mls/hr IVPB Q8 [facility]NALISA PRN Reason: Protocol Last Admin: 03/11/17 22:13 Dose: 102 mls/hr Propofol (Diprivan) 1,000 mg in 100 mls @ 2.83 mls/hr IV .Q24H PRN; Protocol; 5 MCG/KG/MIN PRN Reason: TITRATE PER MD ORDER Last Admin: 03/11/17 19:52 Dose: 15 mcg/kg/min, 8.491 mls/hr Pantoprazole Sodium (Protonix Inj) 40 mg IVP DAILY ON LICENSE OF [facility] Polyethylene Glycol (Miralax) 17 gm PO BID ON LICENSE OF [facility] Last Admin: 03/11/17 19:21 Dose: Not Given Quetiapine Fumarate (Seroquel) 25 mg PO 1000,2200 ANNALISA PRN Reason: Protocol Last Admin: 03/11/17 22:00 Dose: Not Given Sertraline HCl (Zoloft) 25 mg PO BID ON [facility] OF [facility] Last Admin: 03/11/17 19:22 Dose: Not Given Results - Vital Signs Recent Vital Signs: Last Vital Signs Temp 98 F 03/11/17 18:30 Pulse 66 03/11/17 18:30 Resp 18 03/11/17 18:30 BP 178/77 H 03/11/17 18:30 Pulse Ox 99 03/11/17 18:30 - Labs Labs: Laboratory Results - last 24 hr 03/11/17 17:53 pCO2 45 pO2 82.0 HCO3 24.8 ABG pH 7.35 ABG Total CO2 26.2 ABG O2 Saturation 98.3 H ABG O2 Content 15.9 ABG Base Excess -1.0 ABG Hemoglobin 11.8 ABG Carboxyhemoglobin 1.9 H POC ABG HHb (Measured) 1.7 ABG Methemoglobin 0.8 ABG O2 Capacity 16.2 Hgb O2 Saturation 95.6 FiO2 40.0 Attending/Attestation - Attestation I have personally seen and examined this patient.: Yes I have fully participated in the care of the patient.: Yes I have reviewed all pertinent clinical information: Yes Notes (Text): this
[2017-03-11] MEDS ORDERED: Propofol 10 mg/ml Inj (20 ML) ONE ×2 (13:11→15:37)
[2017-03-11] MEDS ORDERED: Etomidate 20 mg/10ml Inj IV ONE (13:23)
--- NOTE | 2017-03-11 14:54 | CP.PCM.CON ---
<Halima Lewis - Last Filed: 03/11/17 15:35> History of Present Illness - History of Present Illness History of Present Illness: PGY-2 ICU consult note 76 yo male with a past medical history of Parkinson's disease, hypertension, coronary artery disease, dementia, and kyphosis of the neck came to the ED yesterday with complaints of coughing and throat pain for the past 5 days. Per family patient was initially discharged home but returned to the emergency room with complaints of shortness of breath at home as well as problems swallowing with foods and liquids. The patient is not complaining of any collection of saliva orally or drooling. This has been going on for 2 days, no nausea or vomiting. Per family patient was not complaining of fever, chills, n/v, chest pain before. During endoscopy patient was found to have mass the is partially obstructing airway. PMH: dementia, Parkinson's disease, CAD s/p cardiac catheter, history of falls, hyperlipidemia. PSH: His corneal transplant Social hx: Denies smoking, EtOH or drugs Allergies: Penicillin, benzodiazepines Review of Systems - Review of Systems Systems not reviewed;Unavailable: Acuity of Condition (Post anesthesia) Past Patient History - Infectious Disease Hx of Infectious Diseases: None - Tetanus Immunizations Tetanus Immunization: Up to Date - Past Medical History & Family History Past Family History: Reviewed and not pertinent - Past Social History Smoking Status: Never Smoked - CARDIAC Hx Cardiac Disorders: Yes Hx Hypertension: Yes - PULMONARY Hx Respiratory Disorders: No - NEUROLOGICAL Hx Neurological Disorder: Yes Hx Parkinson's Disease: Yes - HEENT Hx HEENT Problems: Yes (hx of corneal transplant) - RENAL Hx Chronic Kidney Disease: No - ENDOCRINE/METABOLIC Hx Endocrine Disorders: No - HEMATOLOGICAL/ONCOLOGICAL Hx Blood Transfusions: No Hx Blood Transfusion Reaction: No - INTEGUMENTARY Hx Dermatological Problems: Yes - MUSCULOSKELETAL/RHEUMATOLOGICAL Hx Falls: Yes - GASTROINTESTINAL Hx Gastrointestinal Disorders: No - GENITOURINARY/GYNECOLOGICAL Hx Genitourinary Disorders: No - PSYCHIATRIC Hx Psychophysiologic Disorder: No - SURGICAL HISTORY Hx Surgeries: Yes - ANESTHESIA Hx Anesthesia Reactions: No Hx Malignant Hyperthermia: No Meds Allergies/Adverse Reactions: Allergies Allergy/AdvReac Type Severity Reaction Status Date / Time Penicillins Allergy RASH Verified 03/10/17 18:46 Benzodiazepines AdvReac FATIGUE Verified 03/10/17 18:46 - Medications Medications: Current Medications Acetaminophen (Tylenol 325mg Tab) 650 mg PO Q6H PRN PRN Reason: Fever >100.4 F Aspirin (Aspirin Chewable) 81 mg PO DAILY [facility] Atorvastatin Calcium (Lipitor) 10 mg PO DIN [facility] Last Admin: 03/11/17 00:53 Dose: Not Given Carbidopa/Levodopa (Sinemet) 2 tab PO TID [facility] Docusate Sodium (Colace) 100 mg PO BID [facility] Sodium Chloride (Sodium Chloride 0.9%) 1,000 mls @ 50 mls/hr IV .Q20H STA Stop: 03/11/17 18:53 Last Admin: 03/10/17 23:55 Dose: 50 mls/hr Polyethylene Glycol (Miralax) 17 gm PO BID [facility] Quetiapine Fumarate (Seroquel) 25 mg PO 1000,2200 [facility] PRN Reason: Protocol Sertraline HCl (Zoloft) 25 mg PO BID [facility] Physical Exam - Constitutional Appears: No Acute Distress - Head Exam Head Exam: ATRAUMATIC, NORMOCEPHALIC - Eye Exam Eye Exam: Normal appearance - ENT Exam ENT Exam: Mucous Membranes Moist - Respiratory Exam Respiratory Exam: Rhonchi, Stridor, NORMAL BREATHING PATTERN. absent: Respiratory Distress - Cardiovascular Exam Cardiovascular Exam: REGULAR RHYTHM, +S1, +S2. absent: Tachycardia, Diastolic murmur, Systolic Murmur - GI/Abdominal Exam GI & Abdominal Exam: Normal Bowel Sounds, Soft. absent: Distended, Firm, Tenderness - Extremities Exam Extremities exam: Positive for: normal inspection. Negative for: pedal edema, tenderness - Skin Skin Exam: Dry, Intact, Normal Color, Warm Results - Vital Signs Recent Vital Signs: Last Vital Signs Temp 98 F 03/11/17 14:23 Pulse 67 03/11/17 14:23 Resp 16 03/11/17 14:23 BP 169/72 H 03/11/17 14:23 Pulse Ox 96 03/11/17 14:23 - Labs Labs: Laboratory Results - last 24 hr 03/11/17 06:51 pCO2 40 pO2 83.0 HCO3 23.7 ABG pH 7.38 ABG Total CO2 24.9 ABG O2 Saturation 98.3 H ABG O2 Content 15.9 ABG Base Excess -1.3 ABG Hemoglobin 11.7 ABG Carboxyhemoglobin 1.7 H POC ABG HHb (Measured) 1.7 ABG Methemoglobin 0.8 ABG O2 Capacity 16.2 Hgb O2 Saturation 95.9 FiO2 32.0 Assessment & Plan - Assessment and Plan (Free Text) Assessment: 76 yo male with a past medical history of Parkinson's disease, hypertension, coronary artery disease, dementia, and kyphosis of the neck presented with dysphagia, and strider. Endoscope significant edema at the cricopharngeal opening causing narrowing of larynx Plan: Neuro: Patient was evaluated in PACU, recovering from sedations. HEENT: Neck/chest CT Impression: Mild right-sided volume loss with focal scarring in right middle lobe and mild mediastinal shift to the right distended esophagus with small air mid esophagus, thoracic kyphosis. Endoscopy showed significant edema at the cricopharngeal opening causing narrowing of larynx. ENT consulted for trach to stabilize the airway Cardiology: hemodynamically stable,continue to monitor pulm: Currently patient is saturating well, he ENT consulted to maintain airwary. GI: NPO, GI prophylaxis ID: maintain normatermia Renal: Maintain euvolemia, replace electrolytes as needed. ppx: GI- protonix, DVT, SCDs <Cleveland Morin B - Last Filed: 03/11/17 17:22> Meds - Medications Medications: Current Medications Acetaminophen (Tylenol 325mg Tab) 650 mg PO Q6H PRN PRN Reason: Fever >100.4 F Aspirin (Aspirin Chewable) 81 mg PO DAILY [facility] Atorvastatin Calcium (Lipitor) 10 mg PO DIN [facility] Last Admin: 03/11/17 00:53 Dose: Not Given Carbidopa/Levodopa (Sinemet) 2 tab PO TID [facility] Docusate Sodium (Colace) 100 mg PO BID [facility] Sodium Chloride (Sodium Chloride 0.9%) 1,000 mls @ 50 mls/hr IV .Q20H STA Stop: 03/11/17 18:53 Last Admin: 03/10/17 23:55 Dose: 50 mls/hr Pantoprazole Sodium (Protonix Inj) 40 mg IVP DAILY [facility] Polyethylene Glycol (Miralax) 17 gm PO BID [facility] Quetiapine Fumarate (Seroquel) 25 mg PO 1000,2200 [facility] PRN Reason: Protocol Sertraline HCl (Zoloft) 25 mg PO BID [facility] Results - Vital Signs Recent Vital Signs: Last Vital Signs Temp 98 F 07/03/17 15:23 Pulse 81 03/11/17 15:23 Resp 16 03/11/17 15:23 BP 146/82 03/11/17 15:23 Pulse Ox 96 03/11/17 15:23 - Labs Labs: Laboratory Results - last 24 hr 03/11/17 06:51 pCO2 40 pO2 83.0 HCO3 23.7 ABG pH 7.38 ABG Total CO2 24.9 ABG O2 Saturation 98.3 H ABG O2 Content 15.9 ABG Base Excess -1.3 ABG Hemoglobin 11.7 ABG Carboxyhemoglobin 1.7 H POC ABG HHb (Measured) 1.7 ABG Methemoglobin 0.8 ABG O2 Capacity 16.2 Hgb O2 Saturation 95.9 FiO2 32.0 Attending/Attestation - Attestation I have personally seen and examined this patient.: Yes I have fully participated in the care of the patient.: Yes I have reviewed all pertinent clinical information: Yes Notes (Text): 03/11/17 17:19 76 yo male with kyphoscoliosis, now with stridor and substantial hypopharyngeal swelling compromizing airways. Emergent nasal fiberoptic intubation by ENT service performed. Abx and decadron started. Further follow up by ENT service will be appreciated. DVT/GI prophylaxis ccm time 40 min
[2017-03-11] MEDS ORDERED: Dexamethasone 4 mg/1 ml IVP ONE (14:55)
[2017-03-11] MEDS ORDERED: Lidocaine 1%/Epinephrine 1:100000 30 ml vial ONE (15:01)
[2017-03-11] MEDS ORDERED: Lidocaine 2% Inj (20ml) ONE (15:22)
[2017-03-11] MEDS ORDERED: Lidocaine 2% Jelly (30 ml) ONE (15:37)
[2017-03-11] MEDS ORDERED: Succinylcholine 200 mg/10 ml Inj IV ONE (15:37)
[2017-03-11] MEDS ORDERED: Midazolam 2 MG/2 ML VIAL ONE (15:37)
[2017-03-11] MEDS ORDERED: ePHEDrine 50 mg/ml Inj ONE (16:13)
[2017-03-11] MEDS ORDERED: Lactated Ringer's 1,000 ML IV SCH (17:35)
--- NOTE | 2017-03-11 17:56 | CP.PCM.CON ---
History of Present Illness - History of Present Illness History of Present Illness: full consult dictated dictation #[id number] A/p 76 yo M s/p nasotracheal intubation for upper airway edema - direct laryngoscopy, showed ulcerative lesion to post-cricoid region - keep intubated for 3 days - decadron q8hrs - antibiotics - ok to extubate in 3 days - fu path Past Patient History - Infectious Disease Hx of Infectious Diseases: None - Tetanus Immunizations Tetanus Immunization: Up to Date - Past Medical History & Family History Past Family History: Reviewed and not pertinent - Past Social History Smoking Status: Never Smoked - CARDIAC Hx Cardiac Disorders: Yes Hx Hypertension: Yes - PULMONARY Hx Respiratory Disorders: No - NEUROLOGICAL Hx Neurological Disorder: Yes Hx Parkinson's Disease: Yes - HEENT Hx HEENT Problems: Yes (hx of corneal transplant) - RENAL Hx Chronic Kidney Disease: No - ENDOCRINE/METABOLIC Hx Endocrine Disorders: No - HEMATOLOGICAL/ONCOLOGICAL Hx Blood Transfusions: No Hx Blood Transfusion Reaction: No - INTEGUMENTARY Hx Dermatological Problems: Yes - MUSCULOSKELETAL/RHEUMATOLOGICAL Hx Falls: Yes - GASTROINTESTINAL Hx Gastrointestinal Disorders: No - GENITOURINARY/GYNECOLOGICAL Hx Genitourinary Disorders: No - PSYCHIATRIC Hx Psychophysiologic Disorder: No - SURGICAL HISTORY Hx Surgeries: Yes - ANESTHESIA Hx Anesthesia Reactions: No Hx Malignant Hyperthermia: No Meds Allergies/Adverse Reactions: Allergies Allergy/AdvReac Type Severity Reaction Status Date / Time Penicillins Allergy RASH Verified 03/10/17 18:46 Benzodiazepines AdvReac FATIGUE Verified 03/10/17 18:46 - Medications Medications: Current Medications Acetaminophen (Tylenol 325mg Tab) 650 mg PO Q6H PRN PRN Reason: Fever >100.4 F Aspirin (Aspirin Chewable) 81 mg PO DAILY [facility] Atorvastatin Calcium (Lipitor) 10 mg PO DIN [facility] Last Admin: 03/11/17 00:53 Dose: Not Given Carbidopa/Levodopa (Sinemet) 2 tab PO TID [facility] Dexamethasone (Decadron Inj) 4 mg IVP Q8 [facility] Docusate Sodium (Colace) 100 mg PO BID [facility] Sodium Chloride (Sodium Chloride 0.9%) 1,000 mls @ 50 mls/hr IV .Q20H STA Stop: 03/11/17 18:53 Last Admin: 03/10/17 23:55 Dose: 50 mls/hr Lactated Ringer's (Lactated Ringer's) 1,000 mls @ 75 mls/hr IV .[id number] [facility] Stop: 03/11/17 19:36 Clindamycin Phosphate 600 mg/ (Sodium Chloride) 54 mls @ 102 mls/hr IVPB Q8 [facility] PRN Reason: Protocol Pantoprazole Sodium (Protonix Inj) 40 mg IVP DAILY [facility] Polyethylene Glycol (Miralax) 17 gm PO BID [facility] Quetiapine Fumarate (Seroquel) 25 mg PO 1000,2200 [facility] PRN Reason: Protocol Sertraline HCl (Zoloft) 25 mg PO BID [facility] Results - Vital Signs Recent Vital Signs: Last Vital Signs Temp 98 F 03/11/17 15:23 Pulse 67 03/11/17 17:45 Resp 13 03/11/17 17:45 BP 157/77 H 03/11/17 17:45 Pulse Ox 98 03/11/17 17:45 - Labs Labs: Laboratory Results - last 24 hr 03/11/17 06:51 pCO2 40 pO2 83.0 HCO3 23.7 ABG pH 7.38 ABG Total CO2 24.9 ABG O2 Saturation 98.3 H ABG O2 Content 15.9 ABG Base Excess -1.3 ABG Hemoglobin 11.7 ABG Carboxyhemoglobin 1.7 H POC ABG HHb (Measured) 1.7 ABG Methemoglobin 0.8 ABG O2 Capacity 16.2 Hgb O2 Saturation 95.9 FiO2 32.0
[2017-03-11 17:59] LABS: ARTERIAL BLOOD GAS HCO3 24.8 mmol/L (21-28); ARTERIAL BLOOD GAS HEMOGLOBIN 11.8 g/dL (11.7-17.4); ARTERIAL BLOOD GAS O2 CAPACITY 16.2 mL/dl (16-24); ARTERIAL BLOOD GAS O2 CONTENT 15.9 ML/dl (15-23); ARTERIAL BLOOD GAS O2 SAT 98.3 % (95-98); ARTERIAL BLOOD GAS PCO2 45 mm/Hg (35-45); ARTERIAL BLOOD GAS PH 7.35 (7.35-7.45); ARTERIAL BLOOD GAS TCO2 26.2 mmol.L (22-28)
[2017-03-11] MEDS: POLYETHYLENE GLYCOL 3350 17 GM/Dose PACKET PO SCH (19:21)
[2017-03-11] MEDS: Propofol 10 mg/ml 1,000 MG/100 ML VIAL IV PRN (19:52)
[2017-03-11] MEDS: Dexamethasone 4 mg/1 ml IVP SCH (22:13)
[2017-03-12] MEDS: Propofol 10 mg/ml 1,000 MG/100 ML VIAL IV PRN ×2 (03:58→10:15)
[2017-03-12] MEDS: Dexamethasone 4 mg/1 ml IVP SCH ×3 (05:15→21:12)
[2017-03-12 05:34] LABS: ARTERIAL BLOOD GAS HCO3 23.8 mmol/L (21-28); ARTERIAL BLOOD GAS HEMOGLOBIN 12.5 g/dL (11.7-17.4); ARTERIAL BLOOD GAS O2 CAPACITY 17.3 mL/dl (16-24); ARTERIAL BLOOD GAS O2 CONTENT 17.1 ML/dl (15-23); ARTERIAL BLOOD GAS PCO2 35 mm/Hg (35-45); ARTERIAL BLOOD GAS PH 7.44 (7.35-7.45); ARTERIAL BLOOD GAS TCO2 24.9 mmol.L (22-28)
[2017-03-12 05:37] LABS: GRAN # 8.35 (1.4-6.5); GRAN % 89.4 % (50.0-68.0); HEMOGLOBIN 12.3 gm/dL (14.0-18.0); LYMPH # 0.6 (1.2-3.4); LYMPH % 6.7 % (22.0-35.0); MEAN CELL VOLUME 95.2 fL (80.0-105.0); MEAN CORPUSCULAR HEMOGLOBIN 31.1 pg (25.0-35.0); MEAN CORPUSCULAR HGB CONC 32.6 g/dl (31.0-37.0); MEAN PLATELET VOLUME 9.9 fl (7.0-11.0); MONO # 0.4 (0.1-0.6); MONO % 3.9 % (1.0-6.0); PLATELET COUNT 181 10^3/uL (120.0-450.0); RBC 3.96 10^6/uL (3.5-6.1); WHITE BLOOD COUNT 9.3 10^3/ul (4.5-11.0)
[2017-03-12 05:44] LABS: ALB/GLOB RATIO 1.1 (1.1-1.8); ALBUMIN 3.5 g/dL (3.0-4.8); ALT/SGPT 38 U/L (7-56); AST/SGOT 28 U/L (15-59); BLOOD UREA NITROGEN 13 mg/dL (7-21); CALCIUM 8.7 mg/dL (8.4-10.5); GFR AFRICAN-AMERICAN > 60; GFR NON-AFRICAN AMERICAN > 60
[2017-03-12] MEDS: POLYETHYLENE GLYCOL 3350 17 GM/Dose PACKET PO SCH ×2 (09:28→18:44)
--- NOTE | 2017-03-12 10:13 | CP.PCM.CON ---
History of Present Illness - History of Present Illness History of Present Illness: RESP FAILURE INTUBATED ON VENT /UNRESPONSIVE NO FEVERS REPORTED Review of Systems - Review of Systems Systems not reviewed;Unavailable: Dementia, Altered Mental Status, Intubated - Constitutional Constitutional: Fever, Lethargy, Weakness - Cardiovascular Cardiovascular: Slow Heart Rate - Respiratory Respiratory: Dyspnea - Gastrointestinal Gastrointestinal: Dyspepsia, Dysphagia - Genitourinary Genitourinary: absent: As Per HPI, Change in Urinary Stream, Difficulty Urinating, Dysuria, Flank Pain, Hematuria, Pyuria, Nocturia, Urinary Incontinence, Urinary Frequency, Urinary Hesitance, Urinary Urgency, Voiding Freq/Small Amts, Freq UTI, Hx Renal/Bladder Calculi, Hx /Renal Surgery, Bladder Distension, Other - Musculoskeletal Musculoskeletal: absent: As Per HPI, Abnormal Gait, Arthralgias, Atrophy, Back Pain, Deformity, Joint Swelling, Limited Range of Motion, Loss of Height, Muscle Cramps, Muscle Weakness, Myalgias, Neck Pain, Numbness, Radiating Pain into Limb, Stiffness, Tingling, Other - Integumentary Integumentary: absent: As Per HPI, Acne, Alopecia, Bleeding Lesions, Change in Hair, Change in Nails, Change in Pigmentation, Changing Lesions, Dry Skin, Erythema, Furuncle, Hirsutism, Lesions, New Lesions, Non-Healing Lesions, Photosensitivity, Pruritus, Rash, Skin Pain, Skin Ulcer, Sores, Striae, Swelling , Unusual Bruising, Wounds, Jaundice, Other - Hematologic/Lymphatic Hematologic: absent: As Per HPI, Easy Bleeding, Easy Bruising, Lymphadenopathy, Other Past Patient History - Infectious Disease Hx of Infectious Diseases: None - Tetanus Immunizations Tetanus Immunization: Up to Date - Past Medical History & Family History Past Medical History?: Yes Past Family History: Reviewed and not pertinent - Past Social History Smoking Status: Never Smoked - CARDIAC Hx Cardiac Disorders: Yes Hx Hypertension: Yes - PULMONARY Hx Respiratory Disorders: No - NEUROLOGICAL Hx Neurological Disorder: Yes Hx Parkinson's Disease: Yes - HEENT Hx HEENT Problems: Yes (hx of corneal transplant) - RENAL Hx Chronic Kidney Disease: No - ENDOCRINE/METABOLIC Hx Endocrine Disorders: No - HEMATOLOGICAL/ONCOLOGICAL Hx Blood Transfusions: No Hx Blood Transfusion Reaction: No - INTEGUMENTARY Hx Dermatological Problems: Yes - MUSCULOSKELETAL/RHEUMATOLOGICAL Hx Falls: Yes - GASTROINTESTINAL Hx Gastrointestinal Disorders: No - GENITOURINARY/GYNECOLOGICAL Hx Genitourinary Disorders: No - PSYCHIATRIC Hx Psychophysiologic Disorder: No - SURGICAL HISTORY Hx Surgeries: Yes - ANESTHESIA Hx Anesthesia Reactions: No Hx Malignant Hyperthermia: No Meds Allergies/Adverse Reactions: Allergies Allergy/AdvReac Type Severity Reaction Status Date / Time Penicillins Allergy RASH Verified 03/10/17 18:46 Benzodiazepines AdvReac FATIGUE Verified 03/10/17 18:46 - Medications Medications: Current Medications Acetaminophen (Tylenol 325mg Tab) 650 mg PO Q6H PRN PRN Reason: Fever >100.4 F Aspirin (Aspirin Chewable) 81 mg PO DAILY [facility] Last Admin: 03/12/17 09:28 Dose: Not Given Atorvastatin Calcium (Lipitor) 10 mg PO DIN [facility] Last Admin: 03/11/17 19:22 Dose: Not Given Carbidopa/Levodopa (Sinemet) 2 tab PO TID [facility] Last Admin: 03/12/17 09:29 Dose: Not Given Dexamethasone (Decadron Inj) 4 mg IVP Q8 [facility] Last Admin: 03/12/17 05:15 Dose: 4 mg Docusate Sodium (Colace) 100 mg PO BID [facility] Last Admin: 03/12/17 09:28 Dose: Not Given Propofol (Diprivan) 1,000 mg in 100 mls @ 2.83 mls/hr IV .Q24H PRN; Protocol; 5 MCG/KG/MIN PRN Reason: TITRATE PER MD ORDER Last Admin: 03/12/17 03:58 Dose: 15 mcg/kg/min, 8.491 mls/hr Meropenem 1g/NS 100mL IVPB (Meropenem 1g/Ns 100ml Ivpb) 1 gm in 100 mls @ 100 mls/hr IVPB Q8 [facility] PRN Reason: Protocol Stop: 03/21/17 14:01 Pantoprazole Sodium (Protonix Inj) 40 mg IVP DAILY [facility] Polyethylene Glycol (Miralax) 17 gm PO BID [facility] Last Admin: 03/12/17 09:28 Dose: Not Given Quetiapine Fumarate (Seroquel) 25 mg PO 1000,2200 [facility] PRN Reason: Protocol Last Admin: 03/12/17 09:29 Dose: Not Given Sertraline HCl (Zoloft) 25 mg PO BID [facility] Last Admin: 03/12/17 09:30 Dose: Not Given Physical Exam - Constitutional Appears: Toxic - Head Exam Head Exam: NORMAL INSPECTION - Eye Exam Eye Exam: EOMI, Normal appearance, PERRL Pupil Exam: NORMAL ACCOMODATION, PERRL - ENT Exam ENT Exam: Mucous Membranes Moist, Normal Exam Additional comments: NASO TRACH INTUBATED - Neck Exam Neck exam: Positive for: Normal Inspection - Respiratory Exam Respiratory Exam: Clear to Auscultation Bilateral, NORMAL BREATHING PATTERN - Cardiovascular Exam Cardiovascular Exam: Bradycardia, REGULAR RHYTHM - GI/Abdominal Exam GI & Abdominal Exam: Normal Bowel Sounds, Soft. absent: Tenderness - Rectal Exam Rectal Exam: NORMAL INSPECTION - Exam Exam: Circumcision, NORMAL INSPECTION External exam: NORMAL EXTERNAL EXAM Speculum exam: NORMAL SPECULUM EXAM Bimanual exam: NORMAL BIMANUAL EXAM - Extremities Exam Extremities exam: Positive for: normal inspection - Back Exam Back exam: NORMAL INSPECTION - Neurological Exam Neurological exam: Alert, CN II-XII Intact, Normal Gait, Oriented x3, Reflexes Normal - Psychiatric Exam Psychiatric exam: Normal Affect, Normal Mood - Skin Skin Exam: Dry, Intact, Normal Color, Warm Results - Vital Signs Recent Vital Signs: Last Vital Signs Temp 97.8 F 03/12/17 08:00 Pulse 50 L 03/12/17 08:30 Resp 18 03/11/17 18:30 BP 131/63 03/12/17 08:30 Pulse Ox 95 03/12/17 08:30 - Labs Result Diagrams: 03/12/17 04:45 03/12/17 04:45 Labs: Laboratory Results - last 24 hr 03/11/17 03/12/17 03/12/17 17:53 04:45 04:45 WBC 9.3 RBC 3.96 Hgb 12.3 L Hct 37.7 L MCV 95.2 MCH 31.1 MCHC 32.6 RDW 14.0 Plt Count 181 MPV 9.9 Gran % 89.4 H Lymph % (Auto) 6.7 L [place] % (Auto) 3.9 Eos % (Auto) 0.0 L Baso % (Auto) 0.0 Gran # 8.35 H Lymph # 0.6 L [place] # 0.4 Eos # 0.0 Baso # 0.00 pCO2 45 pO2 82.0 HCO3 24.8 ABG pH 7.35 ABG Total CO2 26.2 ABG O2 Saturation 98.3 H ABG O2 Content 15.9 ABG Base Excess -1.0 ABG Hemoglobin 11.8 ABG Carboxyhemoglobin 1.9 H POC ABG HHb (Measured) 1.7 ABG Methemoglobin 0.8 ABG O2 Capacity 16.2 Hgb O2 Saturation 95.6 FiO2 40.0 Sodium 136 Potassium 4.1 Chloride 104 Carbon Dioxide 24 Anion Gap 12 BUN 13 Creatinine 0.7 Est GFR ( Amer) > 60 Est GFR (Non-Af Amer) > 60 Random Glucose 114 H Calcium 8.7 Total Bilirubin 0.7 AST 28 ALT 38 Alkaline Phosphatase 87 Total Protein 6.6 Albumin 3.5 Globulin 3.1 Albumin/Globulin Ratio 1.1 03/12/17 05:29 WBC RBC Hgb Hct MCV MCH MCHC RDW Plt Count MPV Gran % Lymph % (Auto) [place] % (Auto) Eos % (Auto) Baso % (Auto) Gran # Lymph # [place] # Eos # Baso # pCO2 35 pO2 107.0 H HCO3 23.8 ABG pH 7.44 ABG Total CO2 24.9 ABG O2 Saturation 99.0 H ABG O2 Content 17.1 ABG Base Excess 0.0 ABG Hemoglobin 12.5 ABG Carboxyhemoglobin 1.5 POC ABG HHb (Measured) 1.0 ABG Methemoglobin 1.2 ABG O2 Capacity 17.3 Hgb O2 Saturation 96.4 FiO2 40.0 Sodium Potassium Chloride Carbon Dioxide Anion Gap BUN Creatinine Est GFR ( Amer) Est GFR (Non-Af Amer) Random Glucose Calcium Total Bilirubin AST ALT Alkaline Phosphatase Total Protein Albumin Globulin Albumin/Globulin Ratio Assessment & Plan (1) Respiratory failure requiring intubation Status: Acute (2) Trouble swallowing Status: Acute (3) Fall Status: Acute (4) Laryngeal mass Status: Acute (5) On mechanically assisted ventilation Status: Acute - Assessment and Plan (Free Text) Plan: [facility] - Date & Time Date: 03/12/17 Time: 07:00
--- NOTE | 2017-03-12 10:36 | CP.CCUPN ---
<SurajFlorencia carrington - Last Filed: 03/12/17 11:17> CCU Subjective - Physician Review Subjective (Free Text): PGY-1 Patient seen and examined at bedside in the ICU. In no acute distress, patient is resting comfortably, and nurse reports no events overnight. 03/12/17 10:34 CCU Objective - Vital Signs / Intake & Output Vital Signs (Last 4 hours): Vital Signs Temp Pulse Resp BP Pulse Ox 03/12/17 10:20 66 54 H 85 L 03/12/17 10:10 51 L 96 03/12/17 10:00 53 L 137/63 95 03/12/17 09:50 51 L 94 L 03/12/17 09:40 51 L 93 L 03/12/17 09:30 51 L 142/77 95 03/12/17 09:20 56 L 93 L 03/12/17 09:10 57 L 93 L 03/12/17 09:00 52 L 160/59 H 95 03/12/17 08:50 55 L 96 03/12/17 08:40 63 97 03/12/17 08:30 50 L 131/63 95 03/12/17 08:20 58 L 96 03/12/17 08:10 66 96 03/12/17 08:00 97.8 F 64 148/72 97 03/12/17 07:50 65 84 L 03/12/17 07:40 46 L 95 03/12/17 07:30 49 L 138/73 96 03/12/17 07:20 50 L 95 03/12/17 07:10 48 L 96 03/12/17 07:00 58 L 134/75 95 03/12/17 06:50 52 L 95 03/12/17 06:40 56 L 94 L Intake and Output (Last 8hrs): Intake & Output 03/11/17 03/12/17 03/12/17 22:59 06:59 14:59 Intake Total 203 100 Output Total 800 Balance -597 100 Intake: IV 203 100 Left Antecubital 103 Output: Urine 800 Urethral (Phillip) 800 - Physical Exam Narrative Physical Exam (Free Text): 03/12/17 11:15 Vent settings PRVC, Tidal Volume of 500, RR 14, FiO2 of 40%, PEEP 5 Head: Positive for: Atraumatic, Normocephalic Pupils: Positive for: PERRL Extroacular Muscles: Positive for: EOMI Conjunctiva: Positive for: Normal Pharnyx: Positive for: Other (unable to examine) Neck: Positive for: Other (kyphosis) Respiratory/Chest: Positive for: Clear to Auscultation. Negative for: Respiratory Distress, Accessory Muscle Use Cardiovascular: Positive for: Regular Rate and Rhythm, Normal S1, S2. Negative for: Murmurs Abdomen: Positive for: Normal Bowel Sounds. Negative for: Tenderness, Distention, Peritoneal Signs Back: Positive for: Normal Inspection Upper Extremity: Positive for: Normal Inspection. Negative for: Cyanosis, Edema Lower Extremity: Positive for: Normal Inspection. Negative for: Edema Skin: Positive for: Warm, Dry, Normal Color. Negative for: Rashes - Medications Active Medications: Active Medications Generic Name Dose Route Start Last Admin Trade Name Freq PRN Reason Stop Dose Admin Acetaminophen 650 mg 03/10/17 23:09 Tylenol 325mg Tab PO Q6H PRN Fever >100.4 F Aspirin 81 mg 03/11/17 10:00 03/12/17 09:28 Aspirin Chewable PO Not Given DAILY [facility] Atorvastatin Calcium 10 mg 03/10/17 23:15 03/11/17 19:22 Lipitor PO Not Given DIN [facility] Carbidopa/Levodopa 2 tab 03/11/17 10:00 03/12/17 09:29 Sinemet PO Not Given TID [facility] Dexamethasone 4 mg 03/11/17 22:00 03/12/17 05:15 Decadron Inj IVP 4 mg Q8 [facility] Administration Docusate Sodium 100 mg 03/11/17 10:00 03/12/17 09:28 Colace PO Not Given BID [facility] Heparin Sodium (Porcine) 5,000 units 03/12/17 22:00 Heparin SC Q12 [facility] Protocol Propofol 1,000 mg in 100 mls @ 2.83 mls/hr 03/11/17 18:49 03/12/17 10:15 Diprivan IV 15 mcg/kg/min .Q24H PRN 8.491 mls/hr TITRATE PER MD ORDER Administration Protocol 5 MCG/KG/MIN Meropenem 1g/NS 100mL IVPB 1 gm in 100 mls @ 100 mls/hr 03/12/17 14:00 Meropenem 1g/Ns 100ml Ivpb IVPB 03/21/17 14:01 Q8 [facility] Protocol Pantoprazole Sodium 40 mg 03/12/17 10:00 03/12/17 10:13 Protonix Inj IVP 40 mg DAILY [facility] Administration Polyethylene Glycol 17 gm 03/11/17 10:00 03/12/17 09:28 Miralax PO Not Given BID [facility] Quetiapine Fumarate 25 mg 03/11/17 10:00 03/12/17 09:29 Seroquel PO Not Given 1000,2200 [facility] Protocol Sertraline HCl 25 mg 03/11/17 10:00 03/12/17 09:30 Zoloft PO Not Given BID [facility] - Patient Studies Lab Studies: Lab Studies 03/12/17 03/12/17 03/12/17 Range/Units 05:29 04:45 04:45 WBC 9.3 (4.5-11.0) 10^3/ul RBC 3.96 (3.5-6.1) 10^6/uL Hgb 12.3 L (14.0-18.0) gm/dL Hct 37.7 L (42.0-52.0) % MCV 95.2 (80.0-105.0) fL MCH 31.1 (25.0-35.0) pg MCHC 32.6 (31.0-37.0) g/dl RDW 14.0 (11.5-14.5) % Plt Count 181 (120.0-450.0) 10^3/uL MPV 9.9 (7.0-11.0) fl Gran % 89.4 H (50.0-68.0) % Lymph % (Auto) 6.7 L (22.0-35.0) % [place] % (Auto) 3.9 (1.0-6.0) % Eos % (Auto) 0.0 L (1.5-5.0) % Baso % (Auto) 0.0 (0.0-3.0) % Gran # 8.35 H (1.4-6.5) Lymph # 0.6 L (1.2-3.4) [place] # 0.4 (0.1-0.6) Eos # 0.0 (0.0-0.7) Baso # 0.00 (0.0-2.0) K/mm3 pCO2 35 (35-45) mm/Hg pO2 107.0 H (80-100) mm/Hg HCO3 23.8 (21-28) mmol/L ABG pH 7.44 (7.35-7.45) ABG Total CO2 24.9 (22-28) mmol.L ABG O2 Saturation 99.0 H (95-98) % ABG O2 Content 17.1 (15-23) ML/dl ABG Base Excess 0.0 (-2.0-3.0) mmol/L ABG Hemoglobin 12.5 (11.7-17.4) g/dL ABG Carboxyhemoglobin 1.5 (0.5-1.5) % POC ABG HHb (Measured) 1.0 (0-5) % ABG Methemoglobin 1.2 (0.0-3.0) % ABG O2 Capacity 17.3 (16-24) mL/dl Hgb O2 Saturation 96.4 (95.0-98.0) % FiO2 40.0 % Sodium 136 (132-148) mmol/L Potassium 4.1 (3.6-5.0) mmol/L Chloride 104 (95-110) mmol/L Carbon Dioxide 24 (21-33) mmol/L Anion Gap 12 (10-20) BUN 13 (7-21) mg/dL Creatinine 0.7 (0.5-1.4) mg/dL Est GFR ( Amer) > 60 Est GFR (Non-Af Amer) > 60 Random Glucose 114 H (70-110) mg/dL Calcium 8.7 (8.4-10.5) mg/dL Total Bilirubin 0.7 (0.2-1.3) mg/dL AST 28 (15-59) U/L ALT 38 (7-56) U/L Alkaline Phosphatase 87 (38-133) U/L Total Protein 6.6 (5.8-8.3) g/dL Albumin 3.5 (3.0-4.8) g/dL Globulin 3.1 gm/dL Albumin/Globulin Ratio 1.1 (1.1-1.8) 03/11/17 Range/Units 17:53 WBC (4.5-11.0) 10^3/ul RBC (3.5-6.1) 10^6/uL Hgb (14.0-18.0) gm/dL Hct (42.0-52.0) % MCV (80.0-105.0) fL MCH (25.0-35.0) pg MCHC (31.0-37.0) g/dl RDW (11.5-14.5) % Plt Count (120.0-450.0) 10^3/uL MPV (7.0-11.0) fl Gran % (50.0-68.0) % Lymph % (Auto) (22.0-35.0) % [place] % (Auto) (1.0-6.0) % Eos % (Auto) (1.5-5.0) % Baso % (Auto) (0.0-3.0) % Gran # (1.4-6.5) Lymph # (1.2-3.4) [place] # (0.1-0.6) Eos # (0.0-0.7) Baso # (0.0-2.0) K/mm3 pCO2 45 (35-45) mm/Hg pO2 82.0 (80-100) mm/Hg HCO3 24.8 (21-28) mmol/L ABG pH 7.35 (7.35-7.45) ABG Total CO2 26.2 (22-28) mmol.L ABG O2 Saturation 98.3 H (95-98) % ABG O2 Content 15.9 (15-23) ML/dl ABG Base Excess -1.0 (-2.0-3.0) mmol/L ABG Hemoglobin 11.8 (11.7-17.4) g/dL ABG Carboxyhemoglobin 1.9 H (0.5-1.5) % POC ABG HHb (Measured) 1.7 (0-5) % ABG Methemoglobin 0.8 (0.0-3.0) % ABG O2 Capacity 16.2 (16-24) mL/dl Hgb O2 Saturation 95.6 (95.0-98.0) % FiO2 40.0 % Sodium (132-148) mmol/L Potassium (3.6-5.0) mmol/L Chloride (95-110) mmol/L Carbon Dioxide (21-33) mmol/L Anion Gap (10-20) BUN (7-21) mg/dL Creatinine (0.5-1.4) mg/dL Est GFR ( Amer) Est GFR (Non-Af Amer) Random Glucose (70-110) mg/dL Calcium (8.4-10.5) mg/dL Total Bilirubin (0.2-1.3) mg/dL AST (15-59) U/L ALT (7-56) U/L Alkaline Phosphatase (38-133) U/L Total Protein (5.8-8.3) g/dL Albumin (3.0-4.8) g/dL Globulin gm/dL Albumin/Globulin Ratio (1.1-1.8) Laboratory Results - last 24 hr 03/11/17 03/12/17 03/12/17 17:53 04:45 04:45 WBC 9.3 RBC 3.96 Hgb 12.3 L Hct 37.7 L MCV 95.2 MCH 31.1 MCHC 32.6 RDW 14.0 Plt Count 181 MPV 9.9 Gran % 89.4 H Lymph % (Auto) 6.7 L [place] % (Auto) 3.9 Eos % (Auto) 0.0 L Baso % (Auto) 0.0 Gran # 8.35 H Lymph # 0.6 L [place] # 0.4 Eos # 0.0 Baso # 0.00 pCO2 45 pO2 82.0 HCO3 24.8 ABG pH 7.35 ABG Total CO2 26.2 ABG O2 Saturation 98.3 H ABG O2 Content 15.9 ABG Base Excess -1.0 ABG Hemoglobin 11.8 ABG Carboxyhemoglobin 1.9 H POC ABG HHb (Measured) 1.7 ABG Methemoglobin 0.8 ABG O2 Capacity 16.2 Hgb O2 Saturation 95.6 FiO2 40.0 Sodium 136 Potassium 4.1 Chloride 104 Carbon Dioxide 24 Anion Gap 12 BUN 13 Creatinine 0.7 Est GFR ( Amer) > 60 Est GFR (Non-Af Amer) > 60 Random Glucose 114 H Calcium 8.7 Total Bilirubin 0.7 AST 28 ALT 38 Alkaline Phosphatase 87 Total Protein 6.6 Albumin 3.5 Globulin 3.1 Albumin/Globulin Ratio 1.1 03/12/17 05:29 WBC RBC Hgb Hct MCV MCH MCHC RDW Plt Count MPV Gran % Lymph % (Auto) [place] % (Auto) Eos % (Auto) Baso % (Auto) Gran # Lymph # [place] # Eos # Baso # pCO2 35 pO2 107.0 H HCO3 23.8 ABG pH 7.44 ABG Total CO2 24.9 ABG O2 Saturation 99.0 H ABG O2 Content 17.1 ABG Base Excess 0.0 ABG Hemoglobin 12.5 ABG Carboxyhemoglobin 1.5 POC ABG HHb (Measured) 1.0 ABG Methemoglobin 1.2 ABG O2 Capacity 17.3 Hgb O2 Saturation 96.4 FiO2 40.0 Sodium Potassium Chloride Carbon Dioxide Anion Gap BUN Creatinine Est GFR ( Amer) Est GFR (Non-Af Amer) Random Glucose Calcium Total Bilirubin AST ALT Alkaline Phosphatase Total Protein Albumin Globulin Albumin/Globulin Ratio Review of Systems - Review of Systems Systems not reviewed;Unavailable: Intubated Critical Care Progress Note - Nutrition Nutrition: Nutrition Category Date Time Status NPO Diet [DIET] Diets 03/12/17 Dinner Ordered Assessment/Plan - Assessment and Plan (Free Text) Assessment: 76 yo male with upper airway mass/swelling of unknown etiology. Patient was nasally intubated by ENT for airway protection. Plan: Neurologic: Currently sedated on Propofol 15 mcg/kg/min. Cardiovascular: Currently, he is hemodynamically stable. Patient has a history of Coronary Artery Disease, holding aspirin given patient is intubated and there is no gastric entry. Patient is intubated. Given his history of hypertension, will continue to monitor blood pressure and initiate treatment if appropriate. HEENT: Upper airway swelling/mass: IV steroids and empiric, broad spectrum antibiotics initiated. Biopsy was taken by ENT, pathology pending. Respiratory: Intubated via nasotracheal tube to protect airway and ensure adequate oxygenation and ventilation. Ventilatory settings are PRVC, PEEP of 5, TV of 500 ml, RR of 14, FiO2 of 40%. GI: PPI prophylaxis for stress ulcers secondary to intubation. GI following for dysphagia. Infectious Disease: Patient empirically on meropenem IV in case the swelling/ mass in the upper airway is found to be infectious. Clindamycin was discontinued per ID; however, abbie continue to watch for diarrhea, fever, and leukocytosis. clindamycin once pathology reports determine the etiology of the upper air mass/swelling Hematology: Normal cell counts at this time, will continue to monitor. No leuokocytosis, anemia, thrombocytopenia, etc. Discussed with attending, Florencia Ruelas PGY-1, Beeper # [phone] <Servando COOK,Haroon H - Last Filed: 03/12/17 12:22> CCU Objective - Vital Signs / Intake & Output Vital Signs (Last 4 hours): Vital Signs Temp Pulse Resp BP Pulse Ox 03/12/17 11:57 98.2 F 62 15 97 03/12/17 10:20 66 54 H 85 L 03/12/17 10:10 51 L 96 03/12/17 10:00 53 L 137/63 95 03/12/17 09:50 51 L 94 L 03/12/17 09:40 51 L 93 L 03/12/17 09:30 51 L 142/77 95 03/12/17 09:20 56 L 93 L 03/12/17 09:10 57 L 93 L 03/12/17 09:00 52 L 160/59 H 95 03/12/17 08:50 55 L 96 03/12/17 08:40 63 97 03/12/17 08:30 50 L 131/63 95 Intake and Output (Last 8hrs): Intake & Output 03/11/17 03/12/17 03/12/17 22:59 06:59 14:59 Intake Total 203 100 Output Total 800 Balance -597 100 Weight 205 lb Intake: IV 203 100 Left Antecubital 103 Output: Urine 800 Urethral (Phillip) 800 - Medications Active Medications: Active Medications Generic Name Dose Route Start Last Admin Trade Name Freq PRN Reason Stop Dose Admin Acetaminophen 650 mg 03/10/17 23:09 Tylenol 325mg Tab PO Q6H PRN Fever >100.4 F Aspirin 81 mg 03/11/17 10:00 03/12/17 09:28 Aspirin Chewable PO Not Given DAILY [facility] Atorvastatin Calcium 10 mg 03/10/17 23:15 03/11/17 19:22 Lipitor PO Not Given DIN [facility] Carbidopa/Levodopa 2 tab 03/11/17 10:00 03/12/17 09:29 Sinemet PO Not Given TID [facility] Dexamethasone 4 mg 03/11/17 22:00 03/12/17 05:15 Decadron Inj IVP 4 mg Q8 [facility] Administration Docusate Sodium 100 mg 03/11/17 10:00 03/12/17 09:28 Colace PO Not Given BID [facility] Heparin Sodium (Porcine) 5,000 units 03/12/17 22:00 Heparin SC Q12 [facility] Protocol Propofol 1,000 mg in 100 mls @ 2.83 mls/hr 03/11/17 18:49 03/12/17 10:15 Diprivan IV 15 mcg/kg/min .Q24H PRN 8.491 mls/hr TITRATE PER MD ORDER Administration Protocol 5 MCG/KG/MIN Meropenem 1g/NS 100mL IVPB 1 gm in 100 mls @ 100 mls/hr 03/12/17 14:00 Meropenem 1g/Ns 100ml Ivpb IVPB 03/21/17 14:01 Q8 [facility] Protocol Pantoprazole Sodium 40 mg 03/12/17 10:00 03/12/17 10:13 Protonix Inj IVP 40 mg DAILY [facility] Administration Polyethylene Glycol 17 gm 03/11/17 10:00 03/12/17 09:28 Miralax PO Not Given BID [facility] Quetiapine Fumarate 25 mg 03/11/17 10:00 03/12/17 09:29 Seroquel PO Not Given 1000,2200 [facility] Protocol Sertraline HCl 25 mg 03/11/17 10:00 03/12/17 09:30 Zoloft PO Not Given BID [facility] - Patient Studies Lab Studies: Lab Studies 03/12/17 03/12/17 03/12/17 Range/Units 10:51 05:29 04:45 WBC (4.5-11.0) 10^3/ul RBC (3.5-6.1) 10^6/uL Hgb (14.0-18.0) gm/dL Hct (42.0-52.0) % MCV (80.0-105.0) fL MCH (25.0-35.0) pg MCHC (31.0-37.0) g/dl RDW (11.5-14.5) % Plt Count (120.0-450.0) 10^3/uL MPV (7.0-11.0) fl Gran % (50.0-68.0) % Lymph % (Auto) (22.0-35.0) % [place] % (Auto) (1.0-6.0) % Eos % (Auto) (1.5-5.0) % Baso % (Auto) (0.0-3.0) % Gran # (1.4-6.5) Lymph # (1.2-3.4) [place] # (0.1-0.6) Eos # (0.0-0.7) Baso # (0.0-2.0) K/mm3 pCO2 35 (35-45) mm/Hg pO2 107.0 H (80-100) mm/Hg HCO3 23.8 (21-28) mmol/L ABG pH 7.44 (7.35-7.45) ABG Total CO2 24.9 (22-28) mmol.L ABG O2 Saturation 99.0 H (95-98) % ABG O2 Content 17.1 (15-23) ML/dl ABG Base Excess 0.0 (-2.0-3.0) mmol/L ABG Hemoglobin 12.5 (11.7-17.4) g/dL ABG Carboxyhemoglobin 1.5 (0.5-1.5) % POC ABG HHb (Measured) 1.0 (0-5) % ABG Methemoglobin 1.2 (0.0-3.0) % ABG O2 Capacity 17.3 (16-24) mL/dl Hgb O2 Saturation 96.4 (95.0-98.0) % FiO2 40.0 % Sodium 136 (132-148) mmol/L Potassium 4.1 (3.6-5.0) mmol/L Chloride 104 (95-110) mmol/L Carbon Dioxide 24 (21-33) mmol/L Anion Gap 12 (10-20) BUN 13 (7-21) mg/dL Creatinine 0.7 (0.5-1.4) mg/dL Est GFR ( Amer) > 60 Est GFR (Non-Af Amer) > 60 Random Glucose 114 H (70-110) mg/dL Calcium 8.7 (8.4-10.5) mg/dL Total Bilirubin 0.7 (0.2-1.3) mg/dL AST 28 (15-59) U/L ALT 38 (7-56) U/L Alkaline Phosphatase 87 (38-133) U/L Lactate Dehydrogenase 379 (333-699) U/L Total Protein 6.6 (5.8-8.3) g/dL Albumin 3.5 (3.0-4.8) g/dL Globulin 3.1 gm/dL Albumin/Globulin Ratio 1.1 (1.1-1.8) 03/12/17 03/11/17 Range/Units 04:45 17:53 WBC 9.3 (4.5-11.0) 10^3/ul RBC 3.96 (3.5-6.1) 10^6/uL Hgb 12.3 L (14.0-18.0) gm/dL Hct 37.7 L (42.0-52.0) % MCV 95.2 (80.0-105.0) fL MCH 31.1 (25.0-35.0) pg MCHC 32.6 (31.0-37.0) g/dl RDW 14.0 (11.5-14.5) % Plt Count 181 (120.0-450.0) 10^3/uL MPV 9.9 (7.0-11.0) fl Gran % 89.4 H (50.0-68.0) % Lymph % (Auto) 6.7 L (22.0-35.0) % [place] % (Auto) 3.9 (1.0-6.0) % Eos % (Auto) 0.0 L (1.5-5.0) % Baso % (Auto) 0.0 (0.0-3.0) % Gran # 8.35 H (1.4-6.5) Lymph # 0.6 L (1.2-3.4) [place] # 0.4 (0.1-0.6) Eos # 0.0 (0.0-0.7) Baso # 0.00 (0.0-2.0) K/mm3 pCO2 45 (35-45) mm/Hg pO2 82.0 (80-100) mm/Hg HCO3 24.8 (21-28) mmol/L ABG pH 7.35 (7.35-7.45) ABG Total CO2 26.2 (22-28) mmol.L ABG O2 Saturation 98.3 H (95-98) % ABG O2 Content 15.9 (15-23) ML/dl ABG Base Excess -1.0 (-2.0-3.0) mmol/L ABG Hemoglobin 11.8 (11.7-17.4) g/dL ABG Carboxyhemoglobin 1.9 H (0.5-1.5) % POC ABG HHb (Measured) 1.7 (0-5) % ABG Methemoglobin 0.8 (0.0-3.0) % ABG O2 Capacity 16.2 (16-24) mL/dl Hgb O2 Saturation 95.6 (95.0-98.0) % FiO2 40.0 % Sodium (132-148) mmol/L Potassium (3.6-5.0) mmol/L Chloride (95-110) mmol/L Carbon Dioxide (21-33) mmol/L Anion Gap (10-20) BUN (7-21) mg/dL Creatinine (0.5-1.4) mg/dL Est GFR ( Amer) Est GFR (Non-Af Amer) Random Glucose (70-110) mg/dL Calcium (8.4-10.5) mg/dL Total Bilirubin (0.2-1.3) mg/dL AST (15-59) U/L ALT (7-56) U/L Alkaline Phosphatase (38-133) U/L Lactate Dehydrogenase (333-699) U/L Total Protein (5.8-8.3) g/dL Albumin (3.0-4.8) g/dL Globulin gm/dL Albumin/Globulin Ratio (1.1-1.8) Laboratory Results - last 24 hr 03/11/17 03/12/17 03/12/17 17:53 04:45 04:45 WBC 9.3 RBC 3.96 Hgb 12.3 L Hct 37.7 L MCV 95.2 MCH 31.1 MCHC 32.6 RDW 14.0 Plt Count 181 MPV 9.9 Gran % 89.4 H Lymph % (Auto) 6.7 L [place] % (Auto) 3.9 Eos % (Auto) 0.0 L Baso % (Auto) 0.0 Gran # 8.35 H Lymph # 0.6 L [place] # 0.4 Eos # 0.0 Baso # 0.00 pCO2 45 pO2 82.0 HCO3 24.8 ABG pH 7.35 ABG Total CO2 26.2 ABG O2 Saturation 98.3 H ABG O2 Content 15.9 ABG Base Excess -1.0 ABG Hemoglobin 11.8 ABG Carboxyhemoglobin 1.9 H POC ABG HHb (Measured) 1.7 ABG Methemoglobin 0.8 ABG O2 Capacity 16.2 Hgb O2 Saturation 95.6 FiO2 40.0 Sodium 136 Potassium 4.1 Chloride 104 Carbon Dioxide 24 Anion Gap 12 BUN 13 Creatinine 0.7 Est GFR ( Amer) > 60 Est GFR (Non-Af Amer) > 60 Random Glucose 114 H Calcium 8.7 Total Bilirubin 0.7 AST 28 ALT 38 Alkaline Phosphatase 87 Lactate Dehydrogenase Total Protein 6.6 Albumin 3.5 Globulin 3.1 Albumin/Globulin Ratio 1.1 03/12/17 03/12/17 05:29 10:51 WBC RBC Hgb Hct MCV MCH MCHC RDW Plt Count MPV Gran % Lymph % (Auto) [place] % (Auto) Eos % (Auto) Baso % (Auto) Gran # Lymph # [place] # Eos # Baso # pCO2 35 pO2 107.0 H HCO3 23.8 ABG pH 7.44 ABG Total CO2 24.9 ABG O2 Saturation 99.0 H ABG O2 Content 17.1 ABG Base Excess 0.0 ABG Hemoglobin 12.5 ABG Carboxyhemoglobin 1.5 POC ABG HHb (Measured) 1.0 ABG Methemoglobin 1.2 ABG O2 Capacity 17.3 Hgb O2 Saturation 96.4 FiO2 40.0 Sodium Potassium Chloride Carbon Dioxide Anion Gap BUN Creatinine Est GFR ( Amer) Est GFR (Non-Af Amer) Random Glucose Calcium Total Bilirubin AST ALT Alkaline Phosphatase Lactate Dehydrogenase 379 Total Protein Albumin Globulin Albumin/Globulin Ratio Critical Care Progress Note - Nutrition Nutrition: Nutrition Category Date Time Status NPO Diet [DIET] Diets 03/12/17 Dinner Ordered Attending/Attestation - Attestation I have personally seen and examined this patient.: Yes I have fully participated in the care of the patient.: Yes I have reviewed all pertinent clinical information: Yes Notes (Text): 03/12/17 12:21 76 y/O M w/ Upper airway mass/ swelling Intubated for airway protection by ENT post NPL and Biopsy. On Empiric abx ( meropenum ) and Decadron . CX and Biopsy pending No acute hypoxia noted. vent setting appropriate w/o any PP elevation. Will need repeat NPL and/or CT neck to evaluate the area before extubation. Will d/w ENT dvt p PPI cc time 65 min
[2017-03-12] MEDS: Meropenem 1g/NS 100mL IVPB 1 GM/100 ML PIGGYBACK IVPB SCH ×2 (13:03→21:13)
[2017-03-12] MEDS: Sodium Chloride 0.9% 1,000 ML IV SCH (17:09)
[2017-03-13] MEDS: Sodium Chloride 0.9% 1,000 ML IV SCH ×2 (03:00→09:00)
[2017-03-13] MEDS: Dexamethasone 4 mg/1 ml IVP SCH ×3 (05:36→21:29)
[2017-03-13] MEDS: Meropenem 1g/NS 100mL IVPB 1 GM/100 ML PIGGYBACK IVPB SCH ×3 (05:36→21:30)
[2017-03-13 06:24] LABS: BASO # 0.01 K/mm3 (0.0-2.0); BASO % 0.1 % (0.0-3.0); GRAN # 10.52 (1.4-6.5); GRAN % 83.4 % (50.0-68.0); LYMPH # 1.1 (1.2-3.4); LYMPH % 8.6 % (22.0-35.0); MEAN CELL VOLUME 93.6 fL (80.0-105.0); MEAN CORPUSCULAR HGB CONC 34.2 g/dl (31.0-37.0); MEAN PLATELET VOLUME 10.2 fl (7.0-11.0); MONO % 7.9 % (1.0-6.0); PLATELET COUNT 193 10^3/uL (120.0-450.0); RBC 4.06 10^6/uL (3.5-6.1); RED CELL DISTRIBUTION WIDTH 13.9 % (11.5-14.5); WHITE BLOOD COUNT 12.6 10^3/ul (4.5-11.0)
[2017-03-13 06:47] LABS: ALBUMIN 3.4 g/dL (3.0-4.8); ALT/SGPT 34 U/L (7-56); AST/SGOT 27 U/L (15-59); BLOOD UREA NITROGEN 17 mg/dL (7-21); CALCIUM 8.8 mg/dL (8.4-10.5); GFR AFRICAN-AMERICAN > 60; GFR NON-AFRICAN AMERICAN > 60
--- NOTE | 2017-03-13 07:10 | CP.PCM.PN ---
Subjective - Date & Time of Evaluation Date of Evaluation: 03/12/17 Time of Evaluation: 13:00 - Subjective Subjective: remains on vent Objective - Vital Signs/Intake and Output Vital Signs (last 24 hours): Temp Pulse Resp BP Pulse Ox 98.3 F 62 15 157/73 H 100 03/12/17 20:00 03/12/17 22:50 03/12/17 22:50 03/12/17 22:50 03/12/17 22:50 Intake and Output: 03/12/17 03/13/17 18:59 06:59 Intake Total 1100 Output Total 600 Balance 500 - Medications Medications: Current Medications Acetaminophen (Tylenol 325mg Tab) 650 mg PO Q6H PRN PRN Reason: Fever >100.4 F Aspirin (Aspirin Chewable) 81 mg PO DAILY [facility] Last Admin: 03/12/17 09:28 Dose: Not Given Atorvastatin Calcium (Lipitor) 10 mg PO DIN [facility] Last Admin: 03/12/17 17:10 Dose: Not Given Carbidopa/Levodopa (Sinemet) 2 tab PO TID [facility] Last Admin: 03/12/17 17:08 Dose: Not Given Dexamethasone (Decadron Inj) 4 mg IVP Q8 [facility] Last Admin: 03/12/17 21:12 Dose: 4 mg Docusate Sodium (Colace) 100 mg PO BID [facility] Last Admin: 03/12/17 18:44 Dose: Not Given Heparin Sodium (Porcine) (Heparin) 5,000 units SC Q12 [facility] PRN Reason: Protocol Last Admin: 03/12/17 21:13 Dose: 5,000 units Propofol (Diprivan) 1,000 mg in 100 mls @ 2.83 mls/hr IV .Q24H PRN; Protocol; 5 MCG/KG/MIN PRN Reason: TITRATE PER MD ORDER Last Admin: 03/12/17 10:15 Dose: 15 mcg/kg/min, 8.491 mls/hr Meropenem 1g/NS 100mL IVPB (Meropenem 1g/Ns 100ml Ivpb) 1 gm in 100 mls @ 100 mls/hr IVPB Q8 [facility] PRN Reason: Protocol Stop: 03/21/17 14:01 Last Admin: 03/12/17 21:13 Dose: 100 mls/hr Sodium Chloride (Sodium Chloride 0.9%) 1,000 mls @ 100 mls/hr IV .Q10H [facility] Last Admin: 03/12/17 17:09 Dose: Not Given Pantoprazole Sodium (Protonix Inj) 40 mg IVP DAILY [facility] Last Admin: 03/12/17 10:13 Dose: 40 mg Polyethylene Glycol (Miralax) 17 gm PO BID [facility] Last Admin: 03/12/17 18:44 Dose: Not Given Quetiapine Fumarate (Seroquel) 25 mg PO 1000,2200 [facility] PRN Reason: Protocol Last Admin: 03/12/17 21:25 Dose: Not Given Sertraline HCl (Zoloft) 25 mg PO BID [facility] Last Admin: 03/12/17 17:08 Dose: Not Given - Labs Labs: 03/12/17 04:45 03/12/17 04:45 - Head Exam Head Exam: ATRAUMATIC, NORMOCEPHALIC - Eye Exam Pupil Exam: PERRL - ENT Exam Additional comments: nasopharyngeal intubation - Neck Exam Neck Exam: absent: Lymphadenopathy, Thyromegaly - Respiratory Exam Respiratory Exam: Clear to Ausculation Bilateral Additional comments: on vent bilateral normal breath sounds - GI/Abdominal Exam GI & Abdominal Exam: Soft, Normal Bowel Sounds. absent: Tenderness, Mass Assessment and Plan - Assessment and Plan (Free Text) Assessment: this 76-year-old patient status post pharyngoscopy revealed a subglottic edema .EGD was aborted as airway obstruction was noticed. Patient did have spide. Subsequent ENT evaluation had procedure in OR. EGD was performed after the nasopharyngeal intubation.No foreign body was noticed patient had a biopsy of post cricoid area was noticed On antibiotics and steroiods Repeat ENT evaluation. prior to extubation follow-up biopsy Plan: this
--- NOTE | 2017-03-13 09:34 | RAD ---
HISTORY: intubated COMPARISON: 03/10/2017 FINDINGS: LUNGS: Endotracheal tube in satisfactory position. PLEURA: No significant pleural effusion identified, no pneumothorax apparent. CARDIOVASCULAR: Normal. OSSEOUS STRUCTURES: No significant abnormalities. VISUALIZED UPPER ABDOMEN: Normal. OTHER FINDINGS: None. IMPRESSION: No active disease. Endotracheal tube in satisfactory position
[2017-03-13] MEDS: POLYETHYLENE GLYCOL 3350 17 GM/Dose PACKET PO SCH ×2 (09:46→17:43)
--- NOTE | 2017-03-13 09:57 | CP.PCM.PN ---
Subjective - Date & Time of Evaluation Date of Evaluation: 03/13/17 Time of Evaluation: 08:10 - Subjective Subjective: S&E at bedside, chart reviewed. Remains on vent, no acute overnight issues. Sedated. Objective - Vital Signs/Intake and Output Vital Signs (last 24 hours): Temp Pulse Resp BP Pulse Ox 98.8 F 64 13 129/67 97 03/13/17 04:00 03/13/17 06:00 03/13/17 06:00 03/13/17 06:00 03/13/17 06:00 Intake and Output: 03/13/17 03/13/17 06:59 18:59 Intake Total 1150 30 Output Total 400 Balance 750 30 - Medications Medications: Current Medications Acetaminophen (Tylenol 325mg Tab) 650 mg PO Q6H PRN PRN Reason: Fever >100.4 F Aspirin (Aspirin Chewable) 81 mg PO DAILY [facility] Last Admin: 03/12/17 09:28 Dose: Not Given Atorvastatin Calcium (Lipitor) 10 mg PO DIN [facility] Last Admin: 03/12/17 17:10 Dose: Not Given Carbidopa/Levodopa (Sinemet) 2 tab PO TID [facility] Last Admin: 03/12/17 17:08 Dose: Not Given Dexamethasone (Decadron Inj) 4 mg IVP Q8 [facility] Last Admin: 03/13/17 05:36 Dose: 4 mg Docusate Sodium (Colace) 100 mg PO BID [facility] Last Admin: 03/12/17 18:44 Dose: Not Given Heparin Sodium (Porcine) (Heparin) 5,000 units SC Q12 [facility] PRN Reason: Protocol Last Admin: 03/12/17 21:13 Dose: 5,000 units Propofol (Diprivan) 1,000 mg in 100 mls @ 2.83 mls/hr IV .Q24H PRN; Protocol; 5 MCG/KG/MIN PRN Reason: TITRATE PER MD ORDER Last Titration: 03/13/17 09:25 Dose: 12 mcg/kg/min, 6.793 mls/hr Meropenem 1g/NS 100mL IVPB (Meropenem 1g/Ns 100ml Ivpb) 1 gm in 100 mls @ 100 mls/hr IVPB Q8 [facility] PRN Reason: Protocol Stop: 03/21/17 14:01 Last Admin: 03/13/17 05:36 Dose: 100 mls/hr Sodium Chloride (Sodium Chloride 0.9%) 1,000 mls @ 50 mls/hr IV .Q20H [facility] Pantoprazole Sodium (Protonix Inj) 40 mg IVP DAILY [facility] Last Admin: 03/12/17 10:13 Dose: 40 mg Polyethylene Glycol (Miralax) 17 gm PO BID [facility] Last Admin: 03/12/17 18:44 Dose: Not Given Quetiapine Fumarate (Seroquel) 25 mg PO 1000,2200 [facility] PRN Reason: Protocol Last Admin: 03/12/17 21:25 Dose: Not Given Sertraline HCl (Zoloft) 25 mg PO BID [facility] Last Admin: 03/12/17 17:08 Dose: Not Given - Labs Labs: 03/13/17 05:30 03/13/17 05:30 - Constitutional Appears: No Acute Distress - Head Exam Head Exam: NORMAL INSPECTION - Eye Exam Eye Exam: Normal appearance. absent: Scleral icterus - ENT Exam ENT Exam: Mucous Membranes Moist - Neck Exam Neck Exam: Normal Inspection - Respiratory Exam Respiratory Exam: NORMAL BREATHING PATTERN. absent: Respiratory Distress - Cardiovascular Exam Cardiovascular Exam: +S1, +S2 - GI/Abdominal Exam GI & Abdominal Exam: Soft, Normal Bowel Sounds. absent: Guarding, Tenderness, Rebound - Extremities Exam Extremities Exam: absent: Calf Tenderness, Pedal Edema - Neurological Exam Neurological Exam: Altered (sedated) - Skin Skin Exam: Dry, Warm Assessment and Plan - Assessment and Plan (Free Text) Assessment: Assessment: Dysphagia, status post pharyngoscopy revealed a subglottic edema .EGD was aborted due to airway obstruction was noticed. Seen by ENT and Patient did had procedure in OR. EGD was performed after the nasopharyngeal intubation. No foreign body was noticed patient had a biopsy of post cricoid area was noticed Parkinson's disease Severe kyphosis of the neck Hypertension. Coronary artery disease status post cardiac catheter History of falls Plan: Nothing by mouth, continue IV fluids for hydration On antibiotics and steroids Repeat ENT evaluation prior to extubation follow-up biopsy continue PPI & DVT prophylaxsis Seen and discussed with Dr. Scott.
[2017-03-13 10:55] LABS: ARTERIAL BLOOD GAS HCO3 23.9 mmol/L (21-28); ARTERIAL BLOOD GAS HEMOGLOBIN 12.4 g/dL (11.7-17.4); ARTERIAL BLOOD GAS O2 CAPACITY 17.3 mL/dl (16-24); ARTERIAL BLOOD GAS O2 CONTENT 17.1 ML/dl (15-23); ARTERIAL BLOOD GAS O2 SAT 99.1 % (95-98); ARTERIAL BLOOD GAS PCO2 36 mm/Hg (35-45); ARTERIAL BLOOD GAS PH 7.43 (7.35-7.45)
--- NOTE | 2017-03-13 16:03 | CP.PCM.PN ---
Subjective - Date & Time of Evaluation Date of Evaluation: 03/13/17 Time of Evaluation: 16:00 - Subjective Subjective: Patient was seen and examined in ICU. He is currently sedated and resting comfortably. Nurse reports no events overnight. Objective - Vital Signs/Intake and Output Vital Signs (last 24 hours): Temp Pulse Resp BP Pulse Ox 98.6 F 60 14 137/64 97 03/13/17 12:00 03/13/17 12:20 03/13/17 12:00 03/13/17 12:00 03/13/17 12:20 Intake and Output: 03/13/17 03/13/17 06:59 18:59 Intake Total 1150 30 Output Total 400 Balance 750 30 - Medications Medications: Current Medications Acetaminophen (Tylenol 325mg Tab) 650 mg PO Q6H PRN PRN Reason: Fever >100.4 F Aspirin (Aspirin Chewable) 81 mg PO DAILY [facility] Last Admin: 03/13/17 09:46 Dose: Not Given Atorvastatin Calcium (Lipitor) 10 mg PO DIN [facility] Last Admin: 03/12/17 17:10 Dose: Not Given Carbidopa/Levodopa (Sinemet) 2 tab PO TID [facility] Last Admin: 03/13/17 13:44 Dose: Not Given Dexamethasone (Decadron Inj) 4 mg IVP Q8 [facility] Last Admin: 03/13/17 13:44 Dose: 4 mg Docusate Sodium (Colace) 100 mg PO BID [facility] Last Admin: 03/13/17 09:46 Dose: Not Given Heparin Sodium (Porcine) (Heparin) 5,000 units SC Q12 [facility] PRN Reason: Protocol Last Admin: 03/13/17 09:49 Dose: 5,000 units Propofol (Diprivan) 1,000 mg in 100 mls @ 2.83 mls/hr IV .Q24H PRN; Protocol; 5 MCG/KG/MIN PRN Reason: TITRATE PER MD ORDER Last Titration: 03/13/17 09:25 Dose: 12 mcg/kg/min, 6.793 mls/hr Meropenem 1g/NS 100mL IVPB (Meropenem 1g/Ns 100ml Ivpb) 1 gm in 100 mls @ 100 mls/hr IVPB Q8 [facility] PRN Reason: Protocol Stop: 03/21/17 14:01 Last Admin: 03/13/17 13:43 Dose: 100 mls/hr Sodium Chloride (Sodium Chloride 0.9%) 1,000 mls @ 50 mls/hr IV .Q20H [facility] Last Admin: 03/13/17 09:00 Dose: 50 mls/hr Pantoprazole Sodium (Protonix Inj) 40 mg IVP DAILY [facility] Last Admin: 03/13/17 09:49 Dose: 40 mg Polyethylene Glycol (Miralax) 17 gm PO BID [facility] Last Admin: 03/13/17 09:46 Dose: Not Given Quetiapine Fumarate (Seroquel) 25 mg PO 1000,2200 [facility] PRN Reason: Protocol Last Admin: 03/13/17 09:49 Dose: Not Given Sertraline HCl (Zoloft) 25 mg PO BID [facility] Last Admin: 03/13/17 09:51 Dose: Not Given - Labs Labs: 03/13/17 05:30 03/13/17 05:30 - Constitutional Appears: No Acute Distress - Head Exam Head Exam: ATRAUMATIC, NORMOCEPHALIC - Eye Exam Eye Exam: Normal appearance - Neck Exam Neck Exam: Normal Inspection - Respiratory Exam Respiratory Exam: Rales (heard in left lung base), NORMAL BREATHING PATTERN Additional comments: No JVD - Cardiovascular Exam Cardiovascular Exam: REGULAR RHYTHM, +S1, +S2 - GI/Abdominal Exam GI & Abdominal Exam: Soft. absent: Distended, Rebound - Skin Skin Exam: Normal Color, Warm (good turgor) Assessment and Plan - Assessment and Plan (Free Text) Assessment: 76 yo male with upper airway mass/swelling of unknown etiology. Patient was nasally intubated by ENT for airway protection. Plan: Plan: Neurologic: Currently sedated on Propofol 15 mcg/kg/min. Cardiovascular: Currently, he is hemodynamically stable. Patient has a history of CAD; holding aspirin. Blood pressure were stable as well as HR. HEENT: Upper airway swelling/mass: IV steroids and empiric, broad spectrum antibiotics initiated. Per ENT, will reassess once the pathology has resulted. Respiratory: Intubated via nasotracheal tube to protect airway. Spontaneous breathing trial initiated, patient tolerated it well. Ventilatory settings are PRVC, PEEP of 5, TV of 500 ml, RR of 14, FiO2 of 40%. GI: PPI prophylaxis for stress ulcers secondary to intubation. Consider NG tube for nutrition. Infectious Disease: Patient empirically on meropenem IV. Hematology: Leukocytosis, neutrophil predominance, likely secondary to steroids. Discussed with attending, Florencia Ruelas PGY-1, Beeper # [phone]
[2017-03-13 16:33] LABS: HEMOGLOBIN 12.4 gm/dL (14.0-18.0); MEAN CELL VOLUME 94.2 fL (80.0-105.0); MEAN CORPUSCULAR HEMOGLOBIN 31.1 pg (25.0-35.0); MEAN PLATELET VOLUME 9.9 fl (7.0-11.0); RBC 3.99 10^6/uL (3.5-6.1); RED CELL DISTRIBUTION WIDTH 13.9 % (11.5-14.5); WHITE BLOOD COUNT 11.1 10^3/ul (4.5-11.0)
[2017-03-14] MEDS: Sodium Chloride 0.9% 1,000 ML IV SCH (04:00)
[2017-03-14] MEDS: Dexamethasone 4 mg/1 ml IVP SCH ×3 (05:32→21:25)
[2017-03-14] MEDS: Meropenem 1g/NS 100mL IVPB 1 GM/100 ML PIGGYBACK IVPB SCH (05:32)
[2017-03-14 06:16] LABS: ARTERIAL BLOOD GAS HCO3 24.2 mmol/L (21-28); ARTERIAL BLOOD GAS HEMOGLOBIN 11.7 g/dL (11.7-17.4); ARTERIAL BLOOD GAS O2 CAPACITY 16.1 mL/dl (16-24); ARTERIAL BLOOD GAS O2 CONTENT 15.8 ML/dl (15-23); ARTERIAL BLOOD GAS PCO2 34 mm/Hg (35-45); ARTERIAL BLOOD GAS PH 7.46 (7.35-7.45); ARTERIAL BLOOD GAS TCO2 25.2 mmol.L (22-28)
[2017-03-14 06:26] LABS: BASO # 0.01 K/mm3 (0.0-2.0); BASO % 0.1 % (0.0-3.0); GRAN # 8.99 (1.4-6.5); GRAN % 82.7 % (50.0-68.0); HEMOGLOBIN 11.7 gm/dL (14.0-18.0); LYMPH # 1.2 (1.2-3.4); LYMPH % 10.9 % (22.0-35.0); MEAN CELL VOLUME 93.3 fL (80.0-105.0); MEAN CORPUSCULAR HEMOGLOBIN 31.3 pg (25.0-35.0); MEAN CORPUSCULAR HGB CONC 33.5 g/dl (31.0-37.0); MEAN PLATELET VOLUME 10.1 fl (7.0-11.0); MONO # 0.7 (0.1-0.6); MONO % 6.3 % (1.0-6.0); PLATELET COUNT 183 10^3/uL (120.0-450.0); RBC 3.74 10^6/uL (3.5-6.1); WHITE BLOOD COUNT 10.9 10^3/ul (4.5-11.0)
[2017-03-14 06:47] LABS: ALT/SGPT 32 U/L (7-56); AST/SGOT 28 U/L (15-59); BLOOD UREA NITROGEN 21 mg/dL (7-21); CALCIUM 8.4 mg/dL (8.4-10.5); GFR AFRICAN-AMERICAN > 60; GFR NON-AFRICAN AMERICAN > 60
--- NOTE | 2017-03-14 06:50 | CP.PCM.PN ---
<Florencia Ruelas - Last Filed: 03/14/17 14:59> Subjective - Date & Time of Evaluation Date of Evaluation: 03/14/17 Time of Evaluation: 06:49 - Subjective Subjective: Patient seen and examined at bedside. Resting comfortably, nurse reports no events overnight. Objective - Vital Signs/Intake and Output Vital Signs (last 24 hours): SRVC mode: TV of 500, PEEP of 5, RR of 13, 35% FiO2 Temp Pulse Resp BP Pulse Ox 99.4 F 47 L 16 142/61 95 03/14/17 04:00 03/14/17 06:00 03/14/17 06:00 03/14/17 06:00 03/14/17 06:00 Intake and Output: 03/13/17 03/14/17 18:59 06:59 Intake Total 898 884 Output Total 450 Balance 448 884 - Medications Medications: Current Medications Acetaminophen (Tylenol 325mg Tab) 650 mg PO Q6H PRN PRN Reason: Fever >100.4 F Aspirin (Aspirin Chewable) 81 mg PO DAILY [facility] Last Admin: 03/13/17 09:46 Dose: Not Given Atorvastatin Calcium (Lipitor) 10 mg PO DIN [facility] Last Admin: 03/13/17 17:43 Dose: Not Given Carbidopa/Levodopa (Sinemet) 2 tab PO TID [facility] Last Admin: 03/13/17 17:44 Dose: Not Given Dexamethasone (Decadron Inj) 4 mg IVP Q8 [facility] Last Admin: 03/14/17 05:32 Dose: 4 mg Docusate Sodium (Colace) 100 mg PO BID [facility] Last Admin: 03/13/17 17:43 Dose: Not Given Heparin Sodium (Porcine) (Heparin) 5,000 units SC Q12 [facility] PRN Reason: Protocol Last Admin: 03/13/17 21:30 Dose: 5,000 units Propofol (Diprivan) 1,000 mg in 100 mls @ 2.83 mls/hr IV .Q24H PRN; Protocol; 5 MCG/KG/MIN PRN Reason: TITRATE PER MD ORDER Last Titration: 03/13/17 09:25 Dose: 12 mcg/kg/min, 6.793 mls/hr Sodium Chloride (Sodium Chloride 0.9%) 1,000 mls @ 50 mls/hr IV .Q20H [facility] Last Admin: 03/14/17 04:00 Dose: 50 mls/hr Pantoprazole Sodium (Protonix Inj) 40 mg IVP DAILY [facility] Last Admin: 03/13/17 09:49 Dose: 40 mg Polyethylene Glycol (Miralax) 17 gm PO BID [facility] Last Admin: 03/13/17 17:43 Dose: Not Given Quetiapine Fumarate (Seroquel) 25 mg PO 1000,2200 [facility] PRN Reason: Protocol Last Admin: 03/13/17 22:00 Dose: Not Given Sertraline HCl (Zoloft) 25 mg PO BID [facility] Last Admin: 03/13/17 17:44 Dose: Not Given - Labs Labs: 03/14/17 05:50 03/14/17 05:50 - Constitutional Appears: Non-toxic, No Acute Distress - Head Exam Head Exam: ATRAUMATIC, NORMOCEPHALIC - Eye Exam Eye Exam: Normal appearance. absent: Periorbital tenderness - ENT Exam Additional comments: Right nare/nostril containing nasoendotracheal tube shows clotted blood, but no active bleeding. - Neck Exam Neck Exam: Normal Inspection Additional comments: Significant kyphoscoliosis - Respiratory Exam Respiratory Exam: Clear to Ausculation Bilateral, NORMAL BREATHING PATTERN Additional comments: chest wall rises symmetrically with inspiration - Cardiovascular Exam Cardiovascular Exam: Bradycardia, +S1, +S2 - GI/Abdominal Exam GI & Abdominal Exam: Soft, Normal Bowel Sounds. absent: Tenderness, Rebound - Rectal Exam Rectal Exam: Deferred - Exam Exam: NORMAL INSPECTION. absent: Scrotal Swelling External exam: absent: Ecchymosis - Extremities Exam Extremities Exam: Normal Inspection Additional comments: patient moves all extremities when palpated - Skin Additional comments: Good skin turgor, no tenting Assessment and Plan - Assessment and Plan (Free Text) Assessment: 76 yo male with upper airway mass/swelling of unknown etiology. Patient was nasally intubated by ENT for airway protection. Plan: Neurologic: Currently sedated on Propofol 12 mcg/kg/min. Moves all extremities. Cardiovascular: Bradycardica: Etiology unknown, benign causes could be due to vagal nerve stimulation; however, due to the unlikely, but possible chance of SHAHRAM (Propafol Related Infusion Syndrome), a CPK and lactic acid have been ordered to survey for this. HEENT: A preliminary pathology report of the upper pharygeal biopsy was requested and based on the results, ENT will be immediately notified. Respiratory. Nasally intubated to protect airway. No hypoxic events, ventilator settings are appropriate without any PP elevation. GI: PPI prophylaxis for stress ulcers secondary to intubation. Consider NG tube for nutrition. Infectious Disease: Blood cultures negative, ID discontinued antibiotics. Hematology: Leukocytosis resolved, which was likely secondary to steroids. : UA ordered as a precautionary measure in light of the low-grade fever, and day 4 of urinary (cage) catheter. Discussed with attending, Florencia Ruelas PGY-1, Beeper # [phone] <Cleveland Morin - Last Filed: 03/14/17 17:18> Objective - Vital Signs/Intake and Output Vital Signs (last 24 hours): Temp Pulse Resp BP Pulse Ox 98 F 57 L 22 148/70 97 03/14/17 16:00 03/14/17 16:30 03/14/17 16:00 03/14/17 16:00 03/14/17 16:30 Intake and Output: 03/14/17 03/14/17 06:59 18:59 Intake Total 884 95 Balance 884 95 - Medications Medications: Current Medications Acetaminophen (Tylenol 325mg Tab) 650 mg PO Q6H PRN PRN Reason: Fever >100.4 F Aspirin (Aspirin Chewable) 81 mg PO DAILY [facility] Last Admin: 03/14/17 09:18 Dose: Not Given Atorvastatin Calcium (Lipitor) 10 mg PO DIN [facility] Last Admin: 03/13/17 17:43 Dose: Not Given Carbidopa/Levodopa (Sinemet) 2 tab PO TID [facility] Last Admin: 03/14/17 13:45 Dose: Not Given Clonidine HCl (Catapres-Tts2 0.2 Mg/24 Hr) 1 patch TD Q7D@1000 [facility] Last Admin: 03/14/17 14:18 Dose: 1 patch Dexamethasone (Decadron Inj) 4 mg IVP Q8 [facility] Last Admin: 03/14/17 13:41 Dose: 4 mg Docusate Sodium (Colace) 100 mg PO BID [facility] Last Admin: 03/14/17 09:18 Dose: Not Given Heparin Sodium (Porcine) (Heparin) 5,000 units SC Q12 [facility] PRN Reason: Protocol Last Admin: 03/14/17 09:06 Dose: 5,000 units Propofol (Diprivan) 1,000 mg in 100 mls @ 2.83 mls/hr IV .Q24H PRN; Protocol; 5 MCG/KG/MIN PRN Reason: TITRATE PER MD ORDER Last Titration: 03/14/17 15:10 Dose: 0 mcg/kg/min, 0 mls/hr Sodium Chloride (Sodium Chloride 0.9%) 1,000 mls @ 50 mls/hr IV .Q20H [facility] Last Admin: 03/14/17 04:00 Dose: 50 mls/hr Pantoprazole Sodium (Protonix Inj) 40 mg IVP DAILY [facility] Last Admin: 03/14/17 09:09 Dose: 40 mg Polyethylene Glycol (Miralax) 17 gm PO BID [facility] Last Admin: 03/14/17 09:19 Dose: Not Given Quetiapine Fumarate (Seroquel) 25 mg PO 1000,2200 [facility] PRN Reason: Protocol Last Admin: 03/14/17 09:20 Dose: Not Given Sertraline HCl (Zoloft) 25 mg PO BID [facility] Last Admin: 03/14/17 09:20 Dose: Not Given - Labs Labs: 03/14/17 05:50 03/14/17 05:50 Attending/Attestation - Attestation I have personally seen and examined this patient.: Yes I have fully participated in the care of the patient.: Yes I have reviewed all pertinent clinical information, including history, physical exam and plan: Yes Notes (Text): 03/14/17 17:10 76 yo male with Parkinson dementia, who was intubated for airway protection. Patient passed PST, cuff leak 120 ml, path report prelim--infection/inflammation , not malignant--official report to be expected tomorrow. Discussed with Dr. Schulte--ok to extubate. ENT service and anesthesiologist (Dr. Patel) at bedside. He performed direct laryngoscopy--no obstructing mass or hypopharyngeal swelling. Extubated via buge. Doing ok, no stridor, no respiratory distress. continue with decadrone for now. Will proceed with high flow ccm time 40 min
--- NOTE | 2017-03-14 08:42 | RAD ---
HISTORY: ET COMPARISON: 03/13/2017 FINDINGS: LUNGS: Evaluation limited due to steep oblique positioning. Opacity at left lung base, pneumonia versus atelectasis. No other abnormal opacity seen elsewhere. PLEURA: No significant pleural effusion identified, no pneumothorax apparent. CARDIOVASCULAR: Normal heart size. Endotracheal tube tip approximately 5.8 cm above the tracheal rupesh. OSSEOUS STRUCTURES: No significant abnormalities. VISUALIZED UPPER ABDOMEN: Normal. OTHER FINDINGS: None. IMPRESSION: Left basilar opacity. Possible early pneumonia. Followup advised.
--- NOTE | 2017-03-14 09:18 | CP.PCM.PN ---
Subjective - Date & Time of Evaluation Date of Evaluation: 03/14/17 Time of Evaluation: 08:40 - Subjective Subjective: S&E at bedside, no acute overnight events reported. Had pasty BM earlier this am , no reports of melena or BRBPR. Remains intubated. sedated on propofol. Family at bedside. Objective - Vital Signs/Intake and Output Vital Signs (last 24 hours): Temp Pulse Resp BP Pulse Ox 97.9 F 47 L 14 134/60 95 03/14/17 07:40 03/14/17 07:40 03/14/17 07:40 03/14/17 07:00 03/14/17 07:40 Intake and Output: 03/14/17 03/14/17 06:59 18:59 Intake Total 884 Balance 884 - Medications Medications: Current Medications Acetaminophen (Tylenol 325mg Tab) 650 mg PO Q6H PRN PRN Reason: Fever >100.4 F Aspirin (Aspirin Chewable) 81 mg PO DAILY [facility] Last Admin: 03/13/17 09:46 Dose: Not Given Atorvastatin Calcium (Lipitor) 10 mg PO DIN [facility] Last Admin: 03/13/17 17:43 Dose: Not Given Carbidopa/Levodopa (Sinemet) 2 tab PO TID [facility] Last Admin: 03/13/17 17:44 Dose: Not Given Dexamethasone (Decadron Inj) 4 mg IVP Q8 [facility] Last Admin: 03/14/17 05:32 Dose: 4 mg Docusate Sodium (Colace) 100 mg PO BID [facility] Last Admin: 03/13/17 17:43 Dose: Not Given Heparin Sodium (Porcine) (Heparin) 5,000 units SC Q12 [facility] PRN Reason: Protocol Last Admin: 03/13/17 21:30 Dose: 5,000 units Propofol (Diprivan) 1,000 mg in 100 mls @ 2.83 mls/hr IV .Q24H PRN; Protocol; 5 MCG/KG/MIN PRN Reason: TITRATE PER MD ORDER Last Titration: 03/13/17 09:25 Dose: 12 mcg/kg/min, 6.793 mls/hr Sodium Chloride (Sodium Chloride 0.9%) 1,000 mls @ 50 mls/hr IV .Q20H [facility] Last Admin: 03/14/17 04:00 Dose: 50 mls/hr Pantoprazole Sodium (Protonix Inj) 40 mg IVP DAILY [facility] Last Admin: 03/13/17 09:49 Dose: 40 mg Polyethylene Glycol (Miralax) 17 gm PO BID [facility] Last Admin: 03/13/17 17:43 Dose: Not Given Quetiapine Fumarate (Seroquel) 25 mg PO 1000,2200 [facility] PRN Reason: Protocol Last Admin: 03/13/17 22:00 Dose: Not Given Sertraline HCl (Zoloft) 25 mg PO BID [facility] Last Admin: 03/13/17 17:44 Dose: Not Given - Labs Labs: 03/14/17 05:50 03/14/17 05:50 - Constitutional Appears: No Acute Distress - Head Exam Head Exam: NORMOCEPHALIC - Eye Exam Eye Exam: Normal appearance. absent: Scleral icterus - ENT Exam ENT Exam: Mucous Membranes Moist - Neck Exam Neck Exam: Normal Inspection - Respiratory Exam Respiratory Exam: Decreased Breath Sounds, NORMAL BREATHING PATTERN. absent: Rales, Wheezes, Respiratory Distress Additional comments: intubated - Cardiovascular Exam Cardiovascular Exam: +S1, +S2 - GI/Abdominal Exam GI & Abdominal Exam: Soft, Normal Bowel Sounds. absent: Distended, Guarding, Tenderness, Organomegaly, Rebound - Extremities Exam Extremities Exam: Pedal Edema. absent: Calf Tenderness - Neurological Exam Neurological Exam: Altered (sedated) - Skin Skin Exam: Dry, Warm Assessment and Plan - Assessment and Plan (Free Text) Assessment: Assessment: Dysphagia, status post pharyngoscopy revealed a subglottic edema. EGD was aborted due to airway obstruction that was noticed. Seen by ENT and Patient had procedure in OR. EGD was performed after the nasopharyngeal intubation. 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 Parkinson's disease Severe kyphosis of the neck Hypertension. Coronary artery disease status post cardiac catheter History of falls Plan: NPO, continue IV fluids for hydration On steroids Off antibiotics as per ID continue PPI continue DVT prophylaxsis ENT plan for extubation after review of pathology taken from ulcerative lesion. spoke to family at bedside. Seen and discussed with Dr. Scott.
[2017-03-14] MEDS: POLYETHYLENE GLYCOL 3350 17 GM/Dose PACKET PO SCH ×2 (09:19→17:50)
--- NOTE | 2017-03-14 10:22 | CP.PCM.PN ---
Subjective - Date & Time of Evaluation Date of Evaluation: 03/14/17 Time of Evaluation: 10:00 - Subjective Subjective: Continues to be on the ventilator, sedated. Afebrile overnight. Objective - Vital Signs/Intake and Output Vital Signs (last 24 hours): Temp Pulse Resp BP Pulse Ox 98.2 F 69 14 157/94 H 96 03/13/17 00:00 03/13/17 02:00 03/13/17 02:00 03/13/17 02:00 03/13/17 02:00 Intake and Output: 03/12/17 03/13/17 18:59 06:59 Intake Total 1100 0 Output Total 600 Balance 500 0 - Medications Medications: Current Medications Acetaminophen (Tylenol 325mg Tab) 650 mg PO Q6H PRN PRN Reason: Fever >100.4 F Aspirin (Aspirin Chewable) 81 mg PO DAILY [facility] Last Admin: 03/12/17 09:28 Dose: Not Given Atorvastatin Calcium (Lipitor) 10 mg PO DIN [facility] Last Admin: 03/12/17 17:10 Dose: Not Given Carbidopa/Levodopa (Sinemet) 2 tab PO TID [facility] Last Admin: 03/12/17 17:08 Dose: Not Given Dexamethasone (Decadron Inj) 4 mg IVP Q8 [facility] Last Admin: 03/13/17 05:36 Dose: 4 mg Docusate Sodium (Colace) 100 mg PO BID [facility] Last Admin: 03/12/17 18:44 Dose: Not Given Heparin Sodium (Porcine) (Heparin) 5,000 units SC Q12 [facility] PRN Reason: Protocol Last Admin: 03/12/17 21:13 Dose: 5,000 units Propofol (Diprivan) 1,000 mg in 100 mls @ 2.83 mls/hr IV .Q24H PRN; Protocol; 5 MCG/KG/MIN PRN Reason: TITRATE PER MD ORDER Last Titration: 03/13/17 05:38 Dose: 17.66 mcg/kg/min, 10 mls/hr Meropenem 1g/NS 100mL IVPB (Meropenem 1g/Ns 100ml Ivpb) 1 gm in 100 mls @ 100 mls/hr IVPB Q8 [facility] PRN Reason: Protocol Stop: 03/21/17 14:01 Last Admin: 03/13/17 05:36 Dose: 100 mls/hr Sodium Chloride (Sodium Chloride 0.9%) 1,000 mls @ 100 mls/hr IV .Q10H [facility] Last Admin: 03/13/17 03:00 Dose: 100 mls/hr Pantoprazole Sodium (Protonix Inj) 40 mg IVP DAILY [facility] Last Admin: 03/12/17 10:13 Dose: 40 mg Polyethylene Glycol (Miralax) 17 gm PO BID [facility] Last Admin: 03/12/17 18:44 Dose: Not Given Quetiapine Fumarate (Seroquel) 25 mg PO 1000,2200 [facility] PRN Reason: Protocol Last Admin: 03/12/17 21:25 Dose: Not Given Sertraline HCl (Zoloft) 25 mg PO BID [facility] Last Admin: 03/12/17 17:08 Dose: Not Given - Labs Labs: 03/12/17 04:45 03/12/17 04:45 - Constitutional Appears: Other (Intubated and sedated) - ENT Exam Additional comments: Nasotracheal tube in place - Neck Exam Neck Exam: absent: Meningismus - Respiratory Exam Respiratory Exam: Decreased Breath Sounds - Cardiovascular Exam Cardiovascular Exam: +S1, +S2 - GI/Abdominal Exam GI & Abdominal Exam: Soft. 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
[2017-03-14 11:51] LABS: URINE BILIRUBIN SMALL (NEGATIVE); URINE BLOOD NEGATIVE (NEGATIVE); URINE GLUCOSE (UA) NEGATIVE (NEGATIVE); URINE LEUKOCYTE ESTERASE NEGATIVE Leu/uL (NEGATIVE); URINE NITRATE NEGATIVE (NEGATIVE); URINE PROTEIN NEGATIVE mg/dL (<30 mg/dL); URINE UROBILINOGEN 0.2 E.U./dL (<1 E.U./dL)
[2017-03-14 11:52] LABS: URINE APPEARANCE CLEAR (CLEAR); URINE COLOR YELLOW (YELLOW)
[2017-03-14] MEDS: Propofol 10 mg/ml 1,000 MG/100 ML VIAL IV PRN (11:56)
[2017-03-14 12:00] LABS: VENOUS BLOOD GAS BASE EXCESS 2.8 mmol/L (0.0-2.0); VENOUS BLOOD GAS PO2 86 mm/Hg (30-55); VENOUS BLOOD PH 7.48 (7.32-7.43)
[2017-03-14 14:43] LABS: SOURCE: PLASMA
[2017-03-14] MEDS ORDERED: TETRACAINE/BENZOCAINE/BUTAMBEN 20 GM SPRAY TP STA (16:47)
[2017-03-15] MEDS: Sodium Chloride 0.9% 1,000 ML IV SCH (00:50)
[2017-03-15] MEDS: Dexamethasone 4 mg/1 ml IVP SCH ×2 (06:02→22:00)
[2017-03-15 06:48] LABS: GRAN # 8.84 (1.4-6.5); GRAN % 81.7 % (50.0-68.0); HEMOGLOBIN 12.3 gm/dL (14.0-18.0); LYMPH # 1.2 (1.2-3.4); LYMPH % 11.1 % (22.0-35.0); MEAN CELL VOLUME 93.1 fL (80.0-105.0); MEAN CORPUSCULAR HEMOGLOBIN 31.4 pg (25.0-35.0); MEAN CORPUSCULAR HGB CONC 33.7 g/dl (31.0-37.0); MONO # 0.8 (0.1-0.6); MONO % 7.2 % (1.0-6.0); PLATELET COUNT 201 10^3/uL (120.0-450.0); RBC 3.92 10^6/uL (3.5-6.1); RED CELL DISTRIBUTION WIDTH 13.8 % (11.5-14.5); WHITE BLOOD COUNT 10.8 10^3/ul (4.5-11.0)
[2017-03-15 06:50] LABS: ALT/SGPT 28 U/L (7-56); AST/SGOT 30 U/L (15-59); BLOOD UREA NITROGEN 22 mg/dL (7-21); CALCIUM 8.4 mg/dL (8.4-10.5); GFR AFRICAN-AMERICAN > 60; GFR NON-AFRICAN AMERICAN > 60
[2017-03-15] MEDS: POLYETHYLENE GLYCOL 3350 17 GM/Dose PACKET PO SCH ×2 (09:10→17:58)
--- NOTE | 2017-03-15 09:13 | CP.PCM.PN ---
<Florencia Ruelas - Last Filed: 03/15/17 19:33> Subjective - Date & Time of Evaluation Date of Evaluation: 03/15/17 Time of Evaluation: 09:10 - Subjective Subjective: Patient seen and examined at bedside. Mr. Atwood is awake, oriented, conversing and reports no problems. Objective - Vital Signs/Intake and Output Vital Signs (last 24 hours): Temp Pulse Resp BP Pulse Ox 99.2 F 56 L 17 90/36 L 84 L 03/15/17 04:00 03/15/17 06:00 03/15/17 01:00 03/15/17 06:00 03/15/17 06:00 Intake and Output: 03/15/17 03/15/17 06:59 18:59 Intake Total 600 Output Total 1200 Balance -600 - Medications Medications: Current Medications Acetaminophen (Tylenol 325mg Tab) 650 mg PO Q6H PRN PRN Reason: Fever >100.4 F Aspirin (Aspirin Chewable) 81 mg PO DAILY [facility] Last Admin: 03/14/17 09:18 Dose: Not Given Atorvastatin Calcium (Lipitor) 10 mg PO DIN [facility] Last Admin: 03/14/17 17:50 Dose: Not Given Carbidopa/Levodopa (Sinemet) 2 tab PO TID [facility] Last Admin: 03/14/17 17:50 Dose: Not Given Clonidine HCl (Catapres-Tts2 0.2 Mg/24 Hr) 1 patch TD Q7D@1000 [facility] Last Admin: 03/14/17 14:18 Dose: 1 patch Dexamethasone (Decadron Inj) 4 mg IVP Q8 [facility] Last Admin: 03/15/17 06:02 Dose: 4 mg Docusate Sodium (Colace) 100 mg PO BID [facility] Last Admin: 03/14/17 17:49 Dose: Not Given Heparin Sodium (Porcine) (Heparin) 5,000 units SC Q12 [facility] PRN Reason: Protocol Last Admin: 03/14/17 21:25 Dose: 5,000 units Propofol (Diprivan) 1,000 mg in 100 mls @ 2.83 mls/hr IV .Q24H PRN; Protocol; 5 MCG/KG/MIN PRN Reason: TITRATE PER MD ORDER Last Titration: 03/14/17 15:10 Dose: 0 mcg/kg/min, 0 mls/hr Sodium Chloride (Sodium Chloride 0.9%) 1,000 mls @ 50 mls/hr IV .Q20H [facility] Last Admin: 03/15/17 00:50 Dose: 50 mls/hr Pantoprazole Sodium (Protonix Inj) 40 mg IVP DAILY [facility] Last Admin: 03/14/17 09:09 Dose: 40 mg Polyethylene Glycol (Miralax) 17 gm PO BID [facility] Last Admin: 03/14/17 17:50 Dose: Not Given Quetiapine Fumarate (Seroquel) 25 mg PO 1000,2200 [facility] PRN Reason: Protocol Last Admin: 03/14/17 22:00 Dose: Not Given Sertraline HCl (Zoloft) 25 mg PO BID [facility] Last Admin: 03/14/17 17:50 Dose: Not Given - Labs Labs: 03/15/17 05:50 03/15/17 05:50 - Constitutional Appears: Well, Non-toxic - Head Exam Head Exam: ATRAUMATIC, NORMOCEPHALIC - Eye Exam Eye Exam: Normal appearance Additional comments: Patient's eyes are closed, crusted over, benignly from being asleep for a longer than normal period. - ENT Exam ENT Exam: Normal External Ear Exam - Neck Exam Neck Exam: Normal Inspection. absent: Tenderness Additional comments: kyphoscoliosis - Respiratory Exam Respiratory Exam: Clear to Ausculation Bilateral, NORMAL BREATHING PATTERN - Cardiovascular Exam Cardiovascular Exam: RRR, +S1, +S2 - GI/Abdominal Exam GI & Abdominal Exam: Soft. absent: Distended, Tenderness, Rebound - Rectal Exam Rectal Exam: Deferred - Extremities Exam Extremities Exam: Normal Inspection. absent: Tenderness - Neurological Exam Neurological Exam: Alert, Awake, Oriented x3 (x2) - Skin Additional comments: good skin turgor, no tenting. Assessment and Plan - Assessment and Plan (Free Text) Assessment: 76 yo male with upper airway mass/swelling of unknown etiology. Patient was nasally intubated by ENT for airway protection. Plan: Neurologic: . Moves all extremities, speaks, alert and oriented. Cardiovascular: Bradycardia has resolved. Etiology unknown, benign causes could be due to vagal nerve stimulation SHAHRAM (Propafol Related Infusion Syndrome), was ruled out given CPK and lactic acid levels were normal. HEENT: A preliminary pathology report of the upper pharygeal biopsy was negative for malignancy. ENT, Dr. Morin, and anesthesiology removed nasally intubation. <Cleveland Morin - Last Filed: 03/18/17 13:17> Objective - Vital Signs/Intake and Output Vital Signs (last 24 hours): Temp Pulse Resp BP Pulse Ox 97.8 F 83 20 151/67 H 96 03/18/17 08:09 03/18/17 08:09 03/18/17 08:09 03/18/17 08:09 03/18/17 08:09 Intake and Output: 03/18/17 03/18/17 06:59 18:59 Intake Total 540 Balance 540 - Medications Medications: Current Medications Acetaminophen (Tylenol 325mg Tab) 650 mg PO Q6H PRN PRN Reason: Fever >100.4 F Aspirin (Aspirin Chewable) 81 mg PO DAILY [facility] Last Admin: 03/18/17 10:14 Dose: 81 mg Atorvastatin Calcium (Lipitor) 10 mg PO DIN [facility] Last Admin: 03/17/17 17:41 Dose: 10 mg Carbidopa/Levodopa (Sinemet) 2 tab PO TID [facility] Last Admin: 03/18/17 10:13 Dose: 2 tab Clonidine HCl (Catapres-Tts2 0.2 Mg/24 Hr) 1 patch TD Q7D@1000 [facility] Last Admin: 03/14/17 14:18 Dose: 1 patch Dexamethasone (Decadron Inj) 4 mg IVP Q12 [facility] Last Admin: 03/18/17 11:34 Dose: Not Given Dexamethasone (Decadron) 4 mg PO Q12 [facility] Docusate Sodium (Colace) 100 mg PO BID [facility] Last Admin: 03/18/17 10:13 Dose: 100 mg Heparin Sodium (Porcine) (Heparin) 5,000 units SC Q12 [facility] PRN Reason: Protocol Last Admin: 03/18/17 10:14 Dose: 5,000 units Sodium Chloride (Sodium Chloride 0.9%) 1,000 mls @ 50 mls/hr IV .Q20H [facility] Last Admin: 03/18/17 10:14 Dose: 50 mls/hr Meropenem 1g/NS 100mL IVPB (Meropenem 1g/Ns 100ml Ivpb) 1 gm in 100 mls @ 100 mls/hr IVPB Q8 [facility] PRN Reason: Protocol Last Admin: 03/18/17 06:53 Dose: 100 mls/hr Vancomycin HCl (Vancomycin 1gm) 1 gm in 250 mls @ 167 mls/hr IVPB Q12H [facility] PRN Reason: Protocol Last Admin: 03/18/17 11:36 Dose: Not Given Pantoprazole Sodium (Protonix Susp) 40 mg PO 0600 [facility] Last Admin: 03/18/17 06:18 Dose: 40 mg Polyethylene Glycol (Miralax) 17 gm PO BID [facility] Last Admin: 03/18/17 10:14 Dose: Not Given Quetiapine Fumarate (Seroquel) 25 mg PO 1000,2200 [facility] PRN Reason: Protocol Last Admin: 03/18/17 10:12 Dose: 25 mg Sertraline HCl (Zoloft) 25 mg PO BID [facility] Last Admin: 03/18/17 10:15 Dose: 25 mg - Labs Labs: 03/18/17 11:50 03/18/17 11:50 Attending/Attestation - Attestation I have personally seen and examined this patient.: Yes I have fully participated in the care of the patient.: Yes I have reviewed all pertinent clinical information, including history, physical exam and plan: Yes Notes (Text): 03/18/17 13:10 76 yo male who was intubated a few days ago for airway protection. Now extubated , doing well. Hemodynamically and respiratory armando stable. ok to downgrade to tele ccm time 40 min
--- NOTE | 2017-03-15 09:15 | RAD ---
HISTORY: ET COMPARISON: 03/14/2017 FINDINGS: LUNGS: No active pulmonary disease. PLEURA: No significant pleural effusion identified, no pneumothorax apparent. CARDIOVASCULAR: Normal. OSSEOUS STRUCTURES: No significant abnormalities. VISUALIZED UPPER ABDOMEN: Normal. OTHER FINDINGS: None. IMPRESSION: No active disease.
--- NOTE | 2017-03-15 09:42 | CP.PCM.PN ---
<Michelle Diamond - Last Filed: 03/15/17 09:43> Subjective - Date & Time of Evaluation Date of Evaluation: 03/15/17 Time of Evaluation: 08:05 - Subjective Subjective: S&E at bedside, chart reviewed. Patient was extubated yesterday, now on nasal cannula, patient denies respiratory distress. No N/V or c/o abdominal pain. No c /o dysphasia. Answering few questions. No acute overnight events reported. Objective - Vital Signs/Intake and Output Vital Signs (last 24 hours): Temp Pulse Resp BP Pulse Ox 99.2 F 56 L 17 90/36 L 84 L 03/15/17 04:00 03/15/17 06:00 03/15/17 01:00 03/15/17 06:00 03/15/17 06:00 Intake and Output: 03/15/17 03/15/17 06:59 18:59 Intake Total 600 Output Total 1200 Balance -600 - Medications Medications: Current Medications Acetaminophen (Tylenol 325mg Tab) 650 mg PO Q6H PRN PRN Reason: Fever >100.4 F Aspirin (Aspirin Chewable) 81 mg PO DAILY [facility] Last Admin: 03/15/17 09:10 Dose: Not Given Atorvastatin Calcium (Lipitor) 10 mg PO DIN [facility] Last Admin: 03/14/17 17:50 Dose: Not Given Carbidopa/Levodopa (Sinemet) 2 tab PO TID [facility] Last Admin: 03/15/17 09:11 Dose: Not Given Clonidine HCl (Catapres-Tts2 0.2 Mg/24 Hr) 1 patch TD Q7D@1000 [facility] Last Admin: 03/14/17 14:18 Dose: 1 patch Dexamethasone (Decadron Inj) 4 mg IVP Q8 [facility] Last Admin: 03/15/17 06:02 Dose: 4 mg Docusate Sodium (Colace) 100 mg PO BID [facility] Last Admin: 03/15/17 09:10 Dose: Not Given Heparin Sodium (Porcine) (Heparin) 5,000 units SC Q12 [facility] PRN Reason: Protocol Last Admin: 03/15/17 09:14 Dose: 5,000 units Propofol (Diprivan) 1,000 mg in 100 mls @ 2.83 mls/hr IV .Q24H PRN; Protocol; 5 MCG/KG/MIN PRN Reason: TITRATE PER MD ORDER Last Titration: 03/14/17 15:10 Dose: 0 mcg/kg/min, 0 mls/hr Sodium Chloride (Sodium Chloride 0.9%) 1,000 mls @ 50 mls/hr IV .Q20H [facility] Last Admin: 03/15/17 00:50 Dose: 50 mls/hr Pantoprazole Sodium (Protonix Inj) 40 mg IVP DAILY [facility] Last Admin: 03/15/17 09:14 Dose: 40 mg Polyethylene Glycol (Miralax) 17 gm PO BID [facility] Last Admin: 03/15/17 09:10 Dose: Not Given Quetiapine Fumarate (Seroquel) 25 mg PO 1000,2200 [facility] PRN Reason: Protocol Last Admin: 03/15/17 09:10 Dose: Not Given Sertraline HCl (Zoloft) 25 mg PO BID [facility] Last Admin: 03/15/17 09:11 Dose: Not Given - Labs Labs: 03/15/17 05:50 03/15/17 05:50 - Constitutional Appears: No Acute Distress - Eye Exam Eye Exam: Normal appearance. absent: Scleral icterus - ENT Exam ENT Exam: Mucous Membranes Moist - Neck Exam Neck Exam: Normal Inspection - Respiratory Exam Respiratory Exam: Decreased Breath Sounds, NORMAL BREATHING PATTERN. absent: Rales, Wheezes, Respiratory Distress - Cardiovascular Exam Cardiovascular Exam: +S1, +S2 - GI/Abdominal Exam GI & Abdominal Exam: Soft, Normal Bowel Sounds. absent: Guarding, Tenderness, Rebound - Extremities Exam Extremities Exam: Pedal Edema. absent: Calf Tenderness - Neurological Exam Neurological Exam: Alert, Awake, Oriented x3 - Skin Skin Exam: Dry, Warm Assessment and Plan - Assessment and Plan (Free Text) Assessment: Assessment: S/P extubation Dysphagia, status post pharyngoscopy revealed a subglottic edema. EGD was aborted due to airway obstruction that was noticed. Seen by ENT and Patient had procedure in OR. EGD was performed after the nasopharyngeal intubation. 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 Parkinson's disease Severe kyphosis of the neck Hypertension. Coronary artery disease status post cardiac catheter History of falls Plan: NPO, continue IV fluids for hydration On steroids Off antibiotics as per ID continue PPI continue DVT prophylaxsis pending swallow evaluation FU biopsy Seen and discussed with Dr. Sonia. <Sonia,Kovil V - Last Filed: 03/15/17 23:57> Objective - Vital Signs/Intake and Output Vital Signs (last 24 hours): Temp Pulse Resp BP Pulse Ox 97.7 F 61 18 136/74 99 03/15/17 16:00 03/15/17 16:00 03/15/17 16:00 03/15/17 16:00 03/15/17 16:00 Intake and Output: 03/15/17 03/16/17 18:59 06:59 Intake Total 660 Output Total 800 Balance -140 - Medications Medications: Current Medications Acetaminophen (Tylenol 325mg Tab) 650 mg PO Q6H PRN PRN Reason: Fever >100.4 F Aspirin (Aspirin Chewable) 81 mg PO DAILY [facility] Last Admin: 03/15/17 09:10 Dose: Not Given Atorvastatin Calcium (Lipitor) 10 mg PO DIN [facility] Last Admin: 03/15/17 17:57 Dose: 10 mg Carbidopa/Levodopa (Sinemet) 2 tab PO TID [facility] Last Admin: 03/15/17 17:58 Dose: 2 tab Clonidine HCl (Catapres-Tts2 0.2 Mg/24 Hr) 1 patch TD Q7D@1000 [facility] Last Admin: 03/14/17 14:18 Dose: 1 patch Dexamethasone (Decadron Inj) 4 mg IVP Q12 [facility] Docusate Sodium (Colace) 100 mg PO BID [facility] Last Admin: 03/15/17 18:03 Dose: Not Given Heparin Sodium (Porcine) (Heparin) 5,000 units SC Q12 [facility] PRN Reason: Protocol Last Admin: 03/15/17 09:14 Dose: 5,000 units Sodium Chloride (Sodium Chloride 0.9%) 1,000 mls @ 50 mls/hr IV .Q20H [facility] Last Admin: 03/15/17 00:50 Dose: 50 mls/hr Pantoprazole Sodium (Protonix Inj) 40 mg IVP DAILY [facility] Last Admin: 03/15/17 09:14 Dose: 40 mg Polyethylene Glycol (Miralax) 17 gm PO BID [facility] Last Admin: 03/15/17 17:58 Dose: Not Given Quetiapine Fumarate (Seroquel) 25 mg PO 1000,2200 [facility] PRN Reason: Protocol Last Admin: 03/15/17 09:10 Dose: Not Given Sertraline HCl (Zoloft) 25 mg PO BID [facility] Last Admin: 03/15/17 17:58 Dose: 25 mg - Labs Labs: 03/15/17 05:50 03/15/17 05:50 Attending/Attestation - Attestation I have personally seen and examined this patient.: Yes I have fully participated in the care of the patient.: Yes I have reviewed all pertinent clinical information, including history, physical exam and plan: Yes Notes (Text): this
--- NOTE | 2017-03-15 09:46 | CP.PCM.PN ---
Subjective - Date & Time of Evaluation Date of Evaluation: 03/15/17 Time of Evaluation: 08:50 - Subjective Subjective: Patient is now extubated and comfortable in bed. Not in distress, afebrile overnight. Objective - Vital Signs/Intake and Output Vital Signs (last 24 hours): Temp Pulse Resp BP Pulse Ox 98.5 F 63 17 163/85 H 97 03/15/17 00:00 03/15/17 04:00 03/15/17 01:00 03/15/17 01:00 03/15/17 04:00 Intake and Output: 03/14/17 03/15/17 18:59 06:59 Intake Total 749 Output Total 580 Balance 169 - Medications Medications: Current Medications Acetaminophen (Tylenol 325mg Tab) 650 mg PO Q6H PRN PRN Reason: Fever >100.4 F Aspirin (Aspirin Chewable) 81 mg PO DAILY [facility] Last Admin: 03/14/17 09:18 Dose: Not Given Atorvastatin Calcium (Lipitor) 10 mg PO DIN [facility] Last Admin: 03/14/17 17:50 Dose: Not Given Carbidopa/Levodopa (Sinemet) 2 tab PO TID [facility] Last Admin: 03/14/17 17:50 Dose: Not Given Clonidine HCl (Catapres-Tts2 0.2 Mg/24 Hr) 1 patch TD Q7D@1000 [facility] Last Admin: 03/14/17 14:18 Dose: 1 patch Dexamethasone (Decadron Inj) 4 mg IVP Q8 [facility] Last Admin: 03/14/17 21:25 Dose: 4 mg Docusate Sodium (Colace) 100 mg PO BID [facility] Last Admin: 03/14/17 17:49 Dose: Not Given Heparin Sodium (Porcine) (Heparin) 5,000 units SC Q12 [facility] PRN Reason: Protocol Last Admin: 03/14/17 21:25 Dose: 5,000 units Propofol (Diprivan) 1,000 mg in 100 mls @ 2.83 mls/hr IV .Q24H PRN; Protocol; 5 MCG/KG/MIN PRN Reason: TITRATE PER MD ORDER Last Titration: 03/14/17 15:10 Dose: 0 mcg/kg/min, 0 mls/hr Sodium Chloride (Sodium Chloride 0.9%) 1,000 mls @ 50 mls/hr IV .Q20H [facility] Last Admin: 03/14/17 04:00 Dose: 50 mls/hr Pantoprazole Sodium (Protonix Inj) 40 mg IVP DAILY [facility] Last Admin: 03/14/17 09:09 Dose: 40 mg Polyethylene Glycol (Miralax) 17 gm PO BID [facility] Last Admin: 03/14/17 17:50 Dose: Not Given Quetiapine Fumarate (Seroquel) 25 mg PO 1000,2200 [facility] PRN Reason: Protocol Last Admin: 03/14/17 09:20 Dose: Not Given Sertraline HCl (Zoloft) 25 mg PO BID [facility] Last Admin: 03/14/17 17:50 Dose: Not Given - Labs Labs: 03/14/17 05:50 03/14/17 05:50 - Constitutional Appears: Non-toxic, No Acute Distress - Head Exam Head Exam: NORMAL INSPECTION - Neck Exam Neck Exam: absent: Meningismus - Respiratory Exam Respiratory Exam: Decreased Breath Sounds - Cardiovascular Exam Cardiovascular Exam: +S1, +S2 - GI/Abdominal Exam GI & Abdominal Exam: Soft. 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
[2017-03-16 07:40] LABS: GRAN # 6.56 (1.4-6.5); GRAN % 78.2 % (50.0-68.0); HEMOGLOBIN 12.4 gm/dL (14.0-18.0); LYMPH # 1.2 (1.2-3.4); LYMPH % 13.7 % (22.0-35.0); MEAN CELL VOLUME 92.2 fL (80.0-105.0); MEAN CORPUSCULAR HEMOGLOBIN 31.2 pg (25.0-35.0); MEAN CORPUSCULAR HGB CONC 33.8 g/dl (31.0-37.0); MONO # 0.7 (0.1-0.6); MONO % 8.1 % (1.0-6.0); PLATELET COUNT 206 10^3/uL (120.0-450.0); RBC 3.98 10^6/uL (3.5-6.1); RED CELL DISTRIBUTION WIDTH 13.5 % (11.5-14.5); WHITE BLOOD COUNT 8.4 10^3/ul (4.5-11.0)
[2017-03-16] MEDS ORDERED: Vancomycin 1gm in NS 250ml 250 ML IVPB SCH (07:45)
[2017-03-16] MEDS ORDERED: Meropenem 1g/NS 100mL IVPB 100 ML IVPB SCH (07:45)
[2017-03-16 07:57] LABS: ALB/GLOB RATIO 1.1 (1.1-1.8); ALBUMIN 3.1 g/dL (3.0-4.8); ALT/SGPT 24 U/L (7-56); AST/SGOT 26 U/L (15-59); BLOOD UREA NITROGEN 21 mg/dL (7-21); CALCIUM 8.5 mg/dL (8.4-10.5); GFR AFRICAN-AMERICAN > 60; GFR NON-AFRICAN AMERICAN > 60
[2017-03-16] MEDS: Vancomycin 1gm in NS 250ml 1 GM/250 ML BAG IVPB SCH ×2 (08:19→21:20)
[2017-03-16] MEDS: Dexamethasone 4 mg/1 ml IVP SCH ×2 (10:26→21:19)
[2017-03-16] MEDS: POLYETHYLENE GLYCOL 3350 17 GM/Dose PACKET PO SCH ×2 (10:26→17:47)
--- NOTE | 2017-03-16 10:56 | CP.PCM.PN ---
Subjective - Date & Time of Evaluation Date of Evaluation: 03/16/17 Time of Evaluation: 10:00 - Subjective Subjective: Comfortable in bed, not in distress, breathing well, no fevers overnight, improving pain in the anterior neck area. Objective - Vital Signs/Intake and Output Vital Signs (last 24 hours): Temp Pulse Resp BP Pulse Ox 97.7 F 61 18 136/74 99 03/15/17 16:00 03/15/17 16:00 03/15/17 16:00 03/15/17 16:00 03/15/17 16:00 Intake and Output: 03/16/17 03/16/17 06:59 18:59 Intake Total 660 0 Output Total 800 Balance -140 0 - Medications Medications: Current Medications Acetaminophen (Tylenol 325mg Tab) 650 mg PO Q6H PRN PRN Reason: Fever >100.4 F Aspirin (Aspirin Chewable) 81 mg PO DAILY [facility] Last Admin: 03/15/17 09:10 Dose: Not Given Atorvastatin Calcium (Lipitor) 10 mg PO DIN [facility] Last Admin: 03/15/17 17:57 Dose: 10 mg Carbidopa/Levodopa (Sinemet) 2 tab PO TID [facility] Last Admin: 03/15/17 17:58 Dose: 2 tab Clonidine HCl (Catapres-Tts2 0.2 Mg/24 Hr) 1 patch TD Q7D@1000 [facility] Last Admin: 03/14/17 14:18 Dose: 1 patch Dexamethasone (Decadron Inj) 4 mg IVP Q12 [facility] Last Admin: 03/15/17 22:00 Dose: 4 mg Docusate Sodium (Colace) 100 mg PO BID [facility] Last Admin: 03/15/17 18:03 Dose: Not Given Heparin Sodium (Porcine) (Heparin) 5,000 units SC Q12 [facility] PRN Reason: Protocol Last Admin: 03/15/17 22:00 Dose: 5,000 units Sodium Chloride (Sodium Chloride 0.9%) 1,000 mls @ 50 mls/hr IV .Q20H [facility] Last Admin: 03/15/17 00:50 Dose: 50 mls/hr Meropenem 1g/NS 100mL IVPB (Meropenem 1g/Ns 100ml Ivpb) 100 mls @ 100 mls/hr IVPB Q8 [facility] PRN Reason: Protocol Stop: 03/23/17 07:46 Vancomycin HCl (Vancomycin 1gm) 250 mls @ 167 mls/hr IVPB Q12H [facility] PRN Reason: Protocol Pantoprazole Sodium (Protonix Inj) 40 mg IVP DAILY [facility] Last Admin: 03/15/17 09:14 Dose: 40 mg Polyethylene Glycol (Miralax) 17 gm PO BID [facility] Last Admin: 03/15/17 17:58 Dose: Not Given Quetiapine Fumarate (Seroquel) 25 mg PO 1000,2200 [facility] PRN Reason: Protocol Last Admin: 03/15/17 22:00 Dose: 25 mg Sertraline HCl (Zoloft) 25 mg PO BID [facility] Last Admin: 03/15/17 17:58 Dose: 25 mg - Labs Labs: 03/15/17 05:50 03/15/17 05:50 - Constitutional Appears: Non-toxic, No Acute Distress - Head Exam Head Exam: NORMAL INSPECTION - Neck Exam Neck Exam: absent: Meningismus - Respiratory Exam Respiratory Exam: Decreased Breath Sounds - Cardiovascular Exam Cardiovascular Exam: +S1, +S2 - GI/Abdominal Exam GI & Abdominal Exam: Soft. 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
[2017-03-16] MEDS: Meropenem 1g/NS 100mL IVPB 1 GM/100 ML PIGGYBACK IVPB SCH ×2 (14:23→21:19)
[2017-03-17] MEDS: Meropenem 1g/NS 100mL IVPB 1 GM/100 ML PIGGYBACK IVPB SCH ×3 (06:20→22:29)
[2017-03-17] MEDS: Vancomycin 1gm in NS 250ml 1 GM/250 ML BAG IVPB SCH ×2 (07:45→22:30)
[2017-03-17] MEDS: POLYETHYLENE GLYCOL 3350 17 GM/Dose PACKET PO SCH ×2 (09:59→17:36)
[2017-03-17] MEDS: Dexamethasone 4 mg/1 ml IVP SCH ×2 (09:59→22:29)
--- NOTE | 2017-03-17 13:45 | CP.PCM.PN ---
Subjective - Date & Time of Evaluation Date of Evaluation: 03/17/17 Time of Evaluation: 11:50 - Subjective Subjective: Comfortable, afebrile, not in distress. Objective - Vital Signs/Intake and Output Vital Signs (last 24 hours): Temp Pulse Resp BP Pulse Ox 97.7 F 63 20 126/70 99 03/16/17 17:15 03/16/17 17:15 03/16/17 17:15 03/16/17 17:15 03/16/17 17:15 Intake and Output: 03/17/17 03/17/17 06:59 18:59 Intake Total 480 Output Total 1200 Balance -720 - Medications Medications: Current Medications Acetaminophen (Tylenol 325mg Tab) 650 mg PO Q6H PRN PRN Reason: Fever >100.4 F Aspirin (Aspirin Chewable) 81 mg PO DAILY [facility] Last Admin: 03/16/17 10:27 Dose: 81 mg Atorvastatin Calcium (Lipitor) 10 mg PO DIN [facility] Last Admin: 03/16/17 17:47 Dose: 10 mg Carbidopa/Levodopa (Sinemet) 2 tab PO TID [facility] Last Admin: 03/16/17 17:46 Dose: 2 tab Clonidine HCl (Catapres-Tts2 0.2 Mg/24 Hr) 1 patch TD Q7D@1000 [facility] Last Admin: 03/14/17 14:18 Dose: 1 patch Dexamethasone (Decadron Inj) 4 mg IVP Q12 [facility] Last Admin: 03/16/17 21:19 Dose: 4 mg Docusate Sodium (Colace) 100 mg PO BID [facility] Last Admin: 03/16/17 17:46 Dose: 100 mg Heparin Sodium (Porcine) (Heparin) 5,000 units SC Q12 [facility] PRN Reason: Protocol Last Admin: 03/16/17 21:19 Dose: 5,000 units Sodium Chloride (Sodium Chloride 0.9%) 1,000 mls @ 50 mls/hr IV .Q20H [facility] Last Admin: 03/15/17 00:50 Dose: 50 mls/hr Meropenem 1g/NS 100mL IVPB (Meropenem 1g/Ns 100ml Ivpb) 1 gm in 100 mls @ 100 mls/hr IVPB Q8 [facility] PRN Reason: Protocol Last Admin: 03/17/17 06:20 Dose: 100 mls/hr Vancomycin HCl (Vancomycin 1gm) 1 gm in 250 mls @ 167 mls/hr IVPB Q12H [facility] PRN Reason: Protocol Last Admin: 03/17/17 07:45 Dose: 167 mls/hr Pantoprazole Sodium (Protonix Inj) 40 mg IVP DAILY [facility] Last Admin: 03/16/17 10:26 Dose: 40 mg Polyethylene Glycol (Miralax) 17 gm PO BID [facility] Last Admin: 03/16/17 17:47 Dose: 17 gm Quetiapine Fumarate (Seroquel) 25 mg PO 1000,2200 [facility] PRN Reason: Protocol Last Admin: 03/16/17 21:19 Dose: 25 mg Sertraline HCl (Zoloft) 25 mg PO BID [facility] Last Admin: 03/16/17 17:47 Dose: 25 mg - Labs Labs: 03/16/17 07:00 03/16/17 07:00 - Constitutional Appears: Non-toxic, No Acute Distress - Head Exam Head Exam: NORMAL INSPECTION - Neck Exam Neck Exam: absent: Meningismus - Respiratory Exam Respiratory Exam: Decreased Breath Sounds - Cardiovascular Exam Cardiovascular Exam: +S1, +S2 - GI/Abdominal Exam GI & Abdominal Exam: Soft. 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
[2017-03-17] MEDS: Sodium Chloride 0.9% 1,000 ML IV SCH (17:46)
[2017-03-18] MEDS: Pantoprazole 40 mg Susp UD PO SCH (06:18)
[2017-03-18] MEDS: Meropenem 1g/NS 100mL IVPB 1 GM/100 ML PIGGYBACK IVPB SCH ×2 (06:53→13:37)
[2017-03-18] MEDS: Vancomycin 1gm in NS 250ml 1 GM/250 ML BAG IVPB SCH ×2 (07:48→11:36)
[2017-03-18 08:09] VITALS: RESP 20
[2017-03-18] MEDS: Dexamethasone 4 mg/1 ml IVP SCH ×2 (10:14→11:34)
[2017-03-18] MEDS: Sodium Chloride 0.9% 1,000 ML IV SCH (10:14)
[2017-03-18] MEDS: POLYETHYLENE GLYCOL 3350 17 GM/Dose PACKET PO SCH (10:14)
[2017-03-18 12:11] LABS: HEMOGLOBIN 13.1 gm/dL (14.0-18.0); MEAN CELL VOLUME 92.1 fL (80.0-105.0); MEAN CORPUSCULAR HEMOGLOBIN 31.3 pg (25.0-35.0); MEAN CORPUSCULAR HGB CONC 33.9 g/dl (31.0-37.0); MEAN PLATELET VOLUME 9.9 fl (7.0-11.0); RBC 4.19 10^6/uL (3.5-6.1); RED CELL DISTRIBUTION WIDTH 13.6 % (11.5-14.5); WHITE BLOOD COUNT 9.5 10^3/ul (4.5-11.0)
[2017-03-18 12:25] LABS: ALB/GLOB RATIO 1.1 (1.1-1.8); ALBUMIN 3.2 g/dL (3.0-4.8); ALT/SGPT 30 U/L (7-56); AST/SGOT 25 U/L (15-59); BLOOD UREA NITROGEN 20 mg/dL (7-21); CALCIUM 9.1 mg/dL (8.4-10.5); GFR AFRICAN-AMERICAN > 60; GFR NON-AFRICAN AMERICAN > 60
--- NOTE | 2017-03-18 12:36 | CP.PCM.PN ---
<Michelle Diamond - Last Filed: 03/18/17 12:33> Subjective - Date & Time of Evaluation Date of Evaluation: 03/18/17 Time of Evaluation: 09:50 - Subjective Subjective: S&E at bedside, chart reviewed. No acute overnight events, tolerating oral intake , no c/o dysphasia. Objective - Vital Signs/Intake and Output Vital Signs (last 24 hours): Temp Pulse Resp BP Pulse Ox 97.8 F 83 20 151/67 H 96 03/18/17 08:09 03/18/17 08:09 03/18/17 08:09 03/18/17 08:09 03/18/17 08:09 Intake and Output: 03/18/17 03/18/17 06:59 18:59 Intake Total 540 Balance 540 - Medications Medications: Current Medications Acetaminophen (Tylenol 325mg Tab) 650 mg PO Q6H PRN PRN Reason: Fever >100.4 F Aspirin (Aspirin Chewable) 81 mg PO DAILY [facility] Last Admin: 03/18/17 10:14 Dose: 81 mg Atorvastatin Calcium (Lipitor) 10 mg PO DIN [facility] Last Admin: 03/17/17 17:41 Dose: 10 mg Carbidopa/Levodopa (Sinemet) 2 tab PO TID [facility] Last Admin: 03/18/17 10:13 Dose: 2 tab Clonidine HCl (Catapres-Tts2 0.2 Mg/24 Hr) 1 patch TD Q7D@1000 [facility] Last Admin: 03/14/17 14:18 Dose: 1 patch Dexamethasone (Decadron Inj) 4 mg IVP Q12 [facility] Last Admin: 03/18/17 11:34 Dose: Not Given Docusate Sodium (Colace) 100 mg PO BID [facility] Last Admin: 03/18/17 10:13 Dose: 100 mg Heparin Sodium (Porcine) (Heparin) 5,000 units SC Q12 [facility] PRN Reason: Protocol Last Admin: 03/18/17 10:14 Dose: 5,000 units Sodium Chloride (Sodium Chloride 0.9%) 1,000 mls @ 50 mls/hr IV .Q20H [facility] Last Admin: 03/18/17 10:14 Dose: 50 mls/hr Meropenem 1g/NS 100mL IVPB (Meropenem 1g/Ns 100ml Ivpb) 1 gm in 100 mls @ 100 mls/hr IVPB Q8 [facility] PRN Reason: Protocol Last Admin: 03/18/17 06:53 Dose: 100 mls/hr Vancomycin HCl (Vancomycin 1gm) 1 gm in 250 mls @ 167 mls/hr IVPB Q12H [facility] PRN Reason: Protocol Last Admin: 03/18/17 11:36 Dose: Not Given Pantoprazole Sodium (Protonix Susp) 40 mg PO 0600 [facility] Last Admin: 03/18/17 06:18 Dose: 40 mg Polyethylene Glycol (Miralax) 17 gm PO BID [facility] Last Admin: 03/18/17 10:14 Dose: Not Given Quetiapine Fumarate (Seroquel) 25 mg PO 1000,2200 [facility] PRN Reason: Protocol Last Admin: 03/18/17 10:12 Dose: 25 mg Sertraline HCl (Zoloft) 25 mg PO BID [facility] Last Admin: 03/18/17 10:15 Dose: 25 mg - Labs Labs: 03/18/17 11:50 03/18/17 11:50 - Constitutional Appears: No Acute Distress - Head Exam Head Exam: NORMOCEPHALIC - Eye Exam Eye Exam: Normal appearance. absent: Scleral icterus - ENT Exam ENT Exam: Mucous Membranes Moist - Neck Exam Neck Exam: Normal Inspection - Respiratory Exam Respiratory Exam: NORMAL BREATHING PATTERN. absent: Respiratory Distress - Cardiovascular Exam Cardiovascular Exam: +S1, +S2 - GI/Abdominal Exam GI & Abdominal Exam: Soft, Normal Bowel Sounds. absent: Guarding, Tenderness, Rebound - Extremities Exam Extremities Exam: absent: Calf Tenderness, Pedal Edema - Neurological Exam Neurological Exam: Alert, Awake, Oriented x3 (forgetful at times) - Skin Skin Exam: Dry, Warm Assessment and Plan - Assessment and Plan (Free Text) Assessment: Assessment: Dysphagia, status post pharyngoscopy revealed a subglottic edema. EGD was aborted due to airway obstruction that was noticed. Seen by ENT and Patient had procedure in OR. EGD was performed after the nasopharyngeal intubation. 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 Biopsy negative for malignancy but show inflammation, necrosis, and abscess formation s/o extubation, intubated for laryngeal edema Parkinson's disease Severe kyphosis of the neck Hypertension. Coronary artery disease status post cardiac catheter History of falls Plan: continue puree w/ nectar thick liquid, w/assist On Decadron on IV antibiotics as per ID continue PPI continue DVT prophylaxsis Seen and discussed with Dr. Scott. <Daniel Scott V - Last Filed: 03/18/17 23:59> Objective - Vital Signs/Intake and Output Vital Signs (last 24 hours): Temp Pulse Resp BP Pulse Ox 98.9 F 86 20 100/40 L 98 03/18/17 16:00 03/18/17 16:00 03/18/17 16:00 03/18/17 16:00 03/18/17 16:00 Intake and Output: 03/18/17 03/19/17 18:59 06:59 Intake Total 240 Balance 240 - Medications Medications: Current Medications Acetaminophen (Tylenol 325mg Tab) 650 mg PO Q6H PRN PRN Reason: Fever >100.4 F Aspirin (Aspirin Chewable) 81 mg PO DAILY [facility] Last Admin: 03/18/17 10:14 Dose: 81 mg Atorvastatin Calcium (Lipitor) 10 mg PO DIN [facility] Last Admin: 03/18/17 18:42 Dose: 10 mg Carbidopa/Levodopa (Sinemet) 2 tab PO TID [facility] Last Admin: 03/18/17 18:44 Dose: 2 tab Clonidine HCl (Catapres-Tts2 0.2 Mg/24 Hr) 1 patch TD Q7D@1000 [facility] Last Admin: 03/14/17 14:18 Dose: 1 patch Dexamethasone (Decadron) 4 mg PO Q12 [facility] Last Admin: 03/18/17 22:38 Dose: 4 mg Docusate Sodium (Colace) 100 mg PO BID [facility] Last Admin: 03/18/17 18:43 Dose: 100 mg Heparin Sodium (Porcine) (Heparin) 5,000 units SC Q12 [facility] PRN Reason: Protocol Last Admin: 03/18/17 22:38 Dose: 5,000 units Levofloxacin (Levaquin) 500 mg PO DAILY [facility] Last Admin: 03/18/17 15:16 Dose: 500 mg Metronidazole (Flagyl) 500 mg PO TID [facility] PRN Reason: Protocol Stop: 03/25/17 14:01 Last Admin: 03/18/17 18:44 Dose: 500 mg Pantoprazole Sodium (Protonix Susp) 40 mg PO 0600 [facility] Last Admin: 03/18/17 06:18 Dose: 40 mg Polyethylene Glycol (Miralax) 17 gm PO BID [facility] Last Admin: 03/18/17 10:14 Dose: Not Given Quetiapine Fumarate (Seroquel) 25 mg PO 1000,2200 [facility] PRN Reason: Protocol Last Admin: 03/18/17 22:39 Dose: 25 mg Sertraline HCl (Zoloft) 25 mg PO BID [facility] Last Admin: 03/18/17 18:43 Dose: 25 mg - Labs Labs: 03/18/17 11:50 03/18/17 11:50 Attending/Attestation - Attestation I have personally seen and examined this patient.: Yes I have fully participated in the care of the patient.: Yes I have reviewed all pertinent clinical information, including history, physical exam and plan: Yes Notes (Text): this
[2017-03-18] MEDS: levoFLOXacin 500 MG TAB PO SCH (15:16)
[2017-03-19] MEDS: Pantoprazole 40 mg Susp UD PO SCH (05:40)
[2017-03-19 08:31] VITALS: BP 158/78; PULSE 55; O2SAT 100
[2017-03-19 08:32] VITALS: TEMP 97.9
[2017-03-19] MEDS: levoFLOXacin 500 MG TAB PO SCH (09:22)
[2017-03-19] MEDS: POLYETHYLENE GLYCOL 3350 17 GM/Dose PACKET PO SCH (09:24)
--- NOTE | 2017-03-19 10:07 | CP.PCM.PN ---
Subjective - Date & Time of Evaluation Date of Evaluation: 03/19/17 Time of Evaluation: 09:45 - Subjective Subjective: S&E at bedside, chart reviewed. No acute overnight events reported. Continue to tolerated oral intake, had brown BM earlier today, Patient with no complaints. Objective - Vital Signs/Intake and Output Vital Signs (last 24 hours): Temp Pulse Resp BP Pulse Ox 97.9 F 55 L 20 158/78 H 100 03/19/17 08:30 03/19/17 08:30 03/19/17 08:30 03/19/17 08:30 03/19/17 08:30 Intake and Output: 03/19/17 03/19/17 06:59 18:59 Intake Total 240 0 Balance 240 0 - Medications Medications: Current Medications Acetaminophen (Tylenol 325mg Tab) 650 mg PO Q6H PRN PRN Reason: Fever >100.4 F Aspirin (Aspirin Chewable) 81 mg PO DAILY [facility] Last Admin: 03/19/17 09:28 Dose: 81 mg Atorvastatin Calcium (Lipitor) 10 mg PO DIN [facility] Last Admin: 03/18/17 18:42 Dose: 10 mg Carbidopa/Levodopa (Sinemet) 2 tab PO TID [facility] Last Admin: 03/19/17 09:21 Dose: 2 tab Clonidine HCl (Catapres-Tts2 0.2 Mg/24 Hr) 1 patch TD Q7D@1000 [facility] Last Admin: 03/14/17 14:18 Dose: 1 patch Dexamethasone (Decadron) 4 mg PO Q12 [facility] Last Admin: 03/19/17 09:22 Dose: 4 mg Docusate Sodium (Colace) 100 mg PO BID [facility] Last Admin: 03/19/17 09:21 Dose: 100 mg Doxycycline Hyclate (Doryx) 100 mg PO Q12 [facility] PRN Reason: Protocol Last Admin: 03/19/17 09:28 Dose: 100 mg Heparin Sodium (Porcine) (Heparin) 5,000 units SC Q12 [facility] PRN Reason: Protocol Last Admin: 03/19/17 09:23 Dose: 5,000 units Levofloxacin (Levaquin) 500 mg PO DAILY [facility] Last Admin: 03/19/17 09:22 Dose: 500 mg Metronidazole (Flagyl) 500 mg PO TID [facility] PRN Reason: Protocol Stop: 03/25/17 14:01 Last Admin: 03/19/17 09:22 Dose: 500 mg Pantoprazole Sodium (Protonix Susp) 40 mg PO 0600 [facility] Last Admin: 03/19/17 05:40 Dose: 40 mg Polyethylene Glycol (Miralax) 17 gm PO BID [facility] Last Admin: 03/19/17 09:24 Dose: Not Given Quetiapine Fumarate (Seroquel) 25 mg PO 1000,2200 [facility] PRN Reason: Protocol Last Admin: 03/19/17 09:22 Dose: 25 mg Sertraline HCl (Zoloft) 25 mg PO BID [facility] Last Admin: 03/19/17 09:24 Dose: 25 mg - Labs Labs: 03/18/17 11:50 03/18/17 11:50 - Constitutional Appears: No Acute Distress - Head Exam Head Exam: NORMAL INSPECTION - Eye Exam Eye Exam: Normal appearance. absent: Scleral icterus - ENT Exam ENT Exam: Mucous Membranes Moist - Neck Exam Neck Exam: Normal Inspection - Respiratory Exam Respiratory Exam: NORMAL BREATHING PATTERN. absent: Respiratory Distress - Cardiovascular Exam Cardiovascular Exam: +S1, +S2 - GI/Abdominal Exam GI & Abdominal Exam: Distended, Soft, Normal Bowel Sounds. absent: Guarding, Tenderness, Organomegaly, Rebound - Extremities Exam Extremities Exam: absent: Calf Tenderness, Pedal Edema - Neurological Exam Neurological Exam: Alert, Awake, Oriented x3 - Skin Skin Exam: Dry, Warm Assessment and Plan - Assessment and Plan (Free Text) Assessment: Assessment: Dysphagia, status post pharyngoscopy revealed a subglottic edema. EGD was aborted due to airway obstruction that was noticed. Seen by ENT and Patient had procedure in OR. EGD was performed after the nasopharyngeal intubation. 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 Biopsy negative for malignancy but show inflammation, necrosis, and abscess formation s/p extubation, intubated for laryngeal edema Parkinson's disease Severe kyphosis of the neck Hypertension. Coronary artery disease status post cardiac catheter History of falls Plan: continue puree w/ nectar thick liquid, w/assist On Decadron on IV antibiotics as per ID continue PPI continue DVT prophylaxsis on colace and miralax, monitor stools Seen and discussed with Dr. Scott.
--- NOTE | 2017-03-19 12:28 | CARD ---
APPROVED REPORT EKG Measurement Heart [id number] <Conclusion> Normal sinus rhythm Normal ECG
--- NOTE | 2017-03-26 11:57 | PCM.OP ---
Operative Report - Operative Report Date of Surgery/Procedure: 03/11/17 Time of Surgery/Procedure: 21:00 Surgeon: Dr. Guzman Schulte Sand Worker: Dr. Lucas Glaser and Dr. Doss Anesthesia/Sedation: General endotracheal Pre-Operative Diagnosis: Dysphagia noted possible foreign body vs mass of the larynx noted on GI endoscopy. Post-Operative Diagnosis: Dysphagia noted possible foreign body vs mass of the larynx noted on GI endoscopy. Indication for Surgery: r/o foreign body esophagus/larynx Operative Findings: post cricoid inflammation Procedure/Operation Description: Awake fiberoptic intubation. Flexible bronchoscopy/tracheoscopy. Direct microlaryngoscopy with biopsy Estimated Blood Loss: 2cc Complications: None Discharge & Condition: Patient tolerated the procedure well and was sent to postoperative care unit in stable condition. Indications: The patient was evaluated by the department of otolaryngology. The patient has a Hx of Parkinson 's disease and dementia. He noted to have acute onset of dysphagia approximately two days prior. Patient was taken in by the department of gastroenterology for EGD evaluation of the esophagus. There was note to be edema and a possible foreign body vs mass to the laryngeal area. Procedure was aborted by GI at that time. Discussion with family regarding risk, benefits, and alternatives of surgery, inclusive of possible tracheotomy, were discussed with the family and they were agreeable to above. Patient was transported back to operative suite. His nose was annesthetized with Lidocaine jelly along with the throat. Fiberoptic intubating bronchoscope was used to pass an endotracheal tube through the nares after dilation with nasal trumpets. The scope was passed through the vocal cords into the trachea and endotracheal tube was pushed into position. The endotracheal tube was then secured to the nose with 2-0 silk. Next , fiberoptic bronchoscope was further utilized to evaluate the trachea and entrance into the right and left main stem bronchi where no foreign body was visualized. GI did their portion of the procedure. They performed a full EGD; Dr. Walker will provide dictation. No foreign body was visualized from this examination as well. Next, a direct microlaryngoscopy was performed. Note the laryngoscope was used to insert through the oropharynx into the supraglottic and glottic regions. Full inspection was performed of these regions. Of note, there was edema of the right side of the larynx posterior pharyngeal wall. There was edema along with ulcerative area. There was also ulcerative area and edema noted of the right piriform area. Multiple biopsies of these areas were taken and sent to pathology for evaluation. Plan was to maintain nasotracheal intubation for approximately three-day treatment with IV antibiotics and steroids and attempt extubation at that time. Patient tolerated the procedure well and he will be sent to postoperative care unit in stable condition.
== END 2017-03-19 14:56 | DRG 154 ==
LOC: ED 18:29 → ERH 22:43 → 5RNO 03-11 01:31 → OBSVTOIN 03-11 17:50 → CCU 03-11 18:29 → 3RNO 03-15 10:46
PROVIDERS: ADMIT Internal Medicine; ATTEND Internal Medicine
PROC: 0BJ08ZZ Inspection of Tracheobronchial Tree, Via Natural or Artificial Opening Endoscopic (ICD-10-PCS; 2017-03-11)
PROC: 0DJ08ZZ Inspection of Upper Intestinal Tract, Via Natural or Artificial Opening Endoscopic (ICD-10-PCS; 2017-03-11)
PROC: 3E0F7GC Introduction of Other Therapeutic Substance into Respiratory Tract, Via Natural or Artificial Opening (ICD-10-PCS; 2017-03-11)
PROC: 5A1945Z Respiratory Ventilation, 24-96 Consecutive Hours (ICD-10-PCS; principal; 2017-03-11 13:00)
PROC: 0BH17EZ Insertion of Endotracheal Airway into Trachea, Via Natural or Artificial Opening (ICD-10-PCS; 2017-03-11 14:45)
PROC: 0CBS8ZX Excision of Larynx, Via Natural or Artificial Opening Endoscopic, Diagnostic (ICD-10-PCS; 2017-03-11 14:45)
DX: J38.6 Stenosis of larynx (principal); J96.90 Respiratory failure, unspecified, unspecified whether with hypoxia or hypercapnia; J38.4 Edema of larynx; R13.10 Dysphagia, unspecified; J44.9 Chronic obstructive pulmonary disease, unspecified; G20 Parkinson's disease; F02.80 Dementia in other diseases classified elsewhere, unspecified severity, without behavioral disturbance, psychotic disturbance, mood disturbance, and anxiety; M41.9 Scoliosis, unspecified; I10 Essential (primary) hypertension; I25.10 Atherosclerotic heart disease of native coronary artery without angina pectoris; E78.5 Hyperlipidemia, unspecified; E66.9 Obesity, unspecified; Z68.33 Body mass index [BMI] 33.0-33.9, adult; Z94.7 Corneal transplant status; Z91.81 History of falling

== ENCOUNTER 2017-05-01 10:31 | Inpatient (IN) | payer MEDICARE ==
--- NOTE | 2017-05-01 10:40 | ED PDOC ---
Arrival/HPI - General Time Seen by Provider: 05/01/17 10:33 Historian: Patient - History of Present Illness Narrative History of Present Illness (Text): 05/01/17 12:51 A 76 year old male whose past medical history includes, Parkinson's disease, hypertension, coronary artery disease and severe kyphosis of neck, was sent in by his alf for difficulty swallowing liquids and solids. The patient denies fevers chills, chest pain, shortness of breath, cough, abdominal pain, nausea, vomiting, diarrhea, headache, dizziness, or any other complaint. Time/Duration: Prior to Arrival Symptom Onset: Sudden Symptom Course: Unchanged Activities at Onset: Rest, Light Context: Other (Shelter) Past Medical History - Provider Review Nursing Documentation Reviewed: Yes - Infectious Disease Hx of Infectious Diseases: None - Tetanus Immunization Tetanus Immunization: Up to Date - Cardiac Hx Hypertension: Yes - Pulmonary Hx Respiratory Disorders: No - Neurological Hx Neurological Disorder: Yes Hx Parkinson's Disease: Yes - HEENT Hx HEENT Disorder: Yes (hx of corneal transplant) - Renal Hx Renal Disorder: No - Endocrine/Metabolic Hx Endocrine Disorders: No - Hematological/Oncological Hx Blood Transfusions: No Hx Blood Transfusion Reaction: No - Integumentary Hx Dermatological Disorder: Yes - Musculoskeletal/Rheumatological Hx Falls: Yes - Gastrointestinal Hx Gastrointestinal Disorders: No - Genitourinary/Gynecological Hx Genitourinary Disorders: No - Psychiatric Hx Psychophysiologic Disorder: No Hx Substance Use: No - Surgical History Hx Eye Surgery: Yes (cornea transplant) - Anesthesia Hx Anesthesia Reactions: No Hx Malignant Hyperthermia: No Family/Social History - Physician Review Nursing Documentation Reviewed: Yes Family/Social History: No Known Family HX Smoking Status: Never Smoked Hx Alcohol Use: No Hx Substance Use: No Allergies/Home Meds Allergies/Adverse Reactions: Allergies Penicillins Allergy (Verified 05/01/17 10:43) RASH Benzodiazepines Adverse Reaction (Verified 05/01/17 10:43) FATIGUE Home Medications: Home Meds Medication Instructions Recorded Confirmed Carbidopa/Levodopa 2 tab PO TID 02/11/17 05/01/17 [Carbidopa-Levodopa 25-100 Tab] Omeprazole 20 mg PO DAILY 02/11/17 05/01/17 Acidoph/L.bulg/Bif.b/S.thermop 1 tab PO TID 05/01/17 05/01/17 [Joy-Bid Caplet] Albuterol 0.083% [Albuterol 0.083% 1 inh INH Q6 PRN 05/01/17 05/01/17 Inhal Yamini (2.5 mg/3 ml) UD] Dexamethasone [Decadron] 4 mg PO BID 05/01/17 05/01/17 Heparin [Heparin (RENAL)] 5,000 units SC BID 05/01/17 05/01/17 LORazepam [Ativan] 0.5 mg PO BID PRN 05/01/17 05/01/17 Polyethylene Glycol 3350 17 gm PO BID 05/01/17 05/01/17 [Polyethylene Glycol 3350] cloNIDine 0.1 mg/24 hr [catapres 1 patch TD .EVERY Saturday05/01/17 05/01/17 TTS1 0.1 mg/24 hr] levoFLOXacin [Levaquin] 500 mg PO DAILY 05/01/17 05/01/17 metroNIDAZOLE 500mg/100ml NS 500 mg IV Q8 05/01/17 05/01/17 [Flagyl 500MG/100ML NS] Physical Exam - Physical Exam Narrative Physical Exam (Text): - Review of Systems Constitutional: Normal. absent: Fatigue, Weight Change, Fevers Eyes: Normal ENT: Normal Mouth: (+) Difficulty swallowing liquids and solids. Respiratory: Normal absent: SOB, Cough, Sputum Cardiovascular: Normal absent: Chest pain, Palpitations, Syncope Gastrointestinal: Normal absent: Abdominal pain, Diarrhea, Nausea, Vomiting Genitourinary: Normal. absent: Dysuria, Frequency, Hematuria Musculoskeletal: Normal. absent: Arthralgias, Back Pain, Neck Pain Skin: Normal Neurological: Normal absent: Focal Weakness Endocrine: Normal Hemo/Lymphatic: Normal Psychiatric: Normal - Physical exam Patient appears age appropriate. - Systems Exam Head: Present: Atraumatic, Normocephalic Pupils: Present: PERRL Extraocular Muscles: Present: EOMI Conjunctiva: Present: Normal Mouth: Present: Moist Mucous Membranes Neck: Present: Normal Range of Motion. No: MIDLINE TENDERNESS, Paraspinal Tenderness Respiratory/Chest: Present: Clear to Auscultation, Good Air Exchange. No: Respiratory Distress, Accessory Muscle Use, Tachypnic Cardiovascular: Present: Regular Rate and Rhythm, Normal S1, S2, Peripheral Pulses Present. No: Murmurs Abdomen: Present: Normal Bowel Sounds, No: Tenderness, Peritoneal Signs, Rebound, Guarding, Distention Back: Present: Normal Inspection. No: Midline Tenderness, Paraspinal Tenderness Upper Extremity: Present: Normal Inspection. No: Cyanosis, Edema Lower Extremity: Present: Normal Inspection. No: Edema Neurological: Present: GCS=15, Speech Normal, cranial nerves II through XII fully intact with no cerebellar abnormality, neuro-sensory fully intact. No focal neurological deficits. Skin: Present: Warm, Dry, Normal Color. No: Rashes Lymphatic: Present: OX3, NI, NC Psychiatric: Present: Alert, Oriented x 3, Normal Insight, Normal Concentration Vital Signs Reviewed: Yes Vital Signs Temp Pulse Resp BP Pulse Ox 05/01/17 13:31 66 18 142/74 96 05/01/17 12:00 66 16 139/77 95 05/01/17 10:42 97.9 F 72 16 122/65 94 L Temperature: Afebrile Blood Pressure: Normal Pulse: Regular Respiratory Rate: Normal Appearance: Positive for: Well-Appearing Pain Distress: None Mental Status: Positive for: Alert and Oriented X 3 Medical Decision Making ED Course and Treatment: 05/01/17 12:56 Impression: A 76 year old male sent in by his alf with difficulty swallowing solids and liquids. On exam, no acute findings. Pt has no immediate airway compromise and in no resp distress Plan: -- EKG -- Labs -- Reassess and disposition Prior Visits: Previous records reviewed, patient was admitted on 03/25 with cough and sore throat. He was able tolerate liquids or solids. He was taken for endoscopy and found possible posterior pharyngeal mass. Pt seen by ENT, nasal intubation performed, pt kept intubated with decadron, and subsequently extubated. Progress Notes: 05/01/17 12:52: Case discussed in detail with Dr. Chino, will admit patient into his service. Pt aware of and agrees with plan 05/01/17 12:57: Case discussed in detail with Dr. Barger, agrees with disposition , states will see patient Chest X-ray Dictator : Poncho Russo MD Report Date : 05/01/2017 13:31:12 IMPRESSION: No active disease. - Lab Interpretations Lab Results: 05/01/17 11:25 05/01/17 11:25 Lab Results 05/01/17 11:45: Blood Type Confirm O POSITIVE 05/01/17 11:25: Blood Type O POSITIVE, Antibody Screen Negative, BBK History Checked No verified bt 05/01/17 11:25: Sodium 135, Potassium 3.8, Chloride 97 L, Carbon Dioxide 29, Anion Gap 13, BUN 24 H, Creatinine 0.8, Est GFR ( Amer) > 60, Est GFR ( Non-Af Amer) > 60, Random Glucose 90, Calcium 9.5, Total Bilirubin 0.4, AST 28, ALT 27, Alkaline Phosphatase 89, Total Protein 6.6, Albumin 3.6, Globulin 3.0, Albumin/Globulin Ratio 1.2 05/01/17 11:25: PT 11.1, INR 1.03, APTT 29.8 05/01/17 11:25: WBC 10.0, RBC 4.12, Hgb 12.8 L, Hct 37.9 L, MCV 92.0, MCH 31.1, MCHC 33.8, RDW 15.0 H, Plt Count 166, MPV 8.7, Gran % 81.0 H, Lymph % (Auto) 13.0 L, [place] % (Auto) 5.7, Eos % (Auto) 0.1 L, Baso % (Auto) 0.2, Gran # 8.07 H , Lymph # 1.3, [place] # 0.6, Eos # 0.0, Baso # 0.02 05/01/17 11:11: POC Glucose (mg/dL) 102 I have reviewed the lab results: Yes - RAD Interpretation Radiology Orders: 05/01/17 10:53 CHEST PORTABLE [RAD] Stat - Medication Orders Current Medication Orders: Aspirin (Aspirin Chewable) 81 mg PO DAILY [facility] Last Admin: 05/01/17 13:27 Dose: Not Given Non-Admin Reason: NPO Atorvastatin Calcium (Lipitor) 10 mg PO DIN [facility] Carbidopa/Levodopa (Sinemet) 2 tab PO TID [facility] Clonidine HCl (Catapres Tts1 0.1 Mg/24 Hr) 1 patch TD .EVERY SATURDAY [facility] Sodium Chloride (Sodium Chloride 0.9%) 1,000 mls @ 100 mls/hr IV .Q10H [facility] Last Admin: 05/01/17 11:41 Dose: 100 mls/hr Lorazepam (Ativan) 0.5 mg PO BID PRN; Protocol PRN Reason: Anxiety Sertraline HCl (Zoloft) 25 mg PO BID [facility] - Scribe Statement The provider has reviewed the documentation as recorded by the Daribmraina Obregon Provider Yeison Attestation: All medical record entries made by the Scribe were at my direction and personally dictated by me. I have reviewed the chart and agree that the record accurately reflects my personal performance of the history, physical exam, medical decision making, and the department course for this patient. I have also personally directed, reviewed, and agree with the discharge instructions and disposition. Disposition/Present on Arrival - Present on Arrival Any Indicators Present on Arrival: No History of DVT/PE: No History of Uncontrolled Diabetes: No Urinary Catheter: No History Surgical Site Infection Following: None - Disposition Have Diagnosis and Disposition been Completed?: Yes Diagnosis: Trouble swallowing Disposition: HOSPITALIZED Disposition Time: 12:52 Patient Plan: Admission Condition: FAIR
[2017-05-01] MEDS: Sodium Chloride 0.9% 1,000 ML IV SCH ×2 (11:41→22:55)
[2017-05-01 11:55] LABS: ALB/GLOB RATIO 1.2 (1.1-1.8); ALKALINE PHOSPHATASE 89 U/L (38-133); ALT/SGPT 27 U/L (7-56); AST/SGOT 28 U/L (15-59); BILIRUBIN,TOTAL 0.4 mg/dL (0.2-1.3); BLOOD UREA NITROGEN 24 mg/dL (7-21); CALCIUM 9.5 mg/dL (8.4-10.5); CARBON DIOXIDE 29 mmol/L (21-33); CHLORIDE 97 mmol/L (98-107); GFR AFRICAN-AMERICAN > 60; GLUCOSE,RANDOM 90 mg/dL (70-110); POTASSIUM 3.8 mmol/L (3.6-5.0); SODIUM 135 mmol/L (132-148); TOTAL PROTEIN 6.6 g/dL (5.8-8.3)
[2017-05-01 12:01] LABS: BASO # 0.02 K/mm3 (0.0-2.0); BASO % 0.2 % (0.0-3.0); EOS % 0.1 % (1.5-5.0); GRAN # 8.07 (1.4-6.5); HEMATOCRIT 37.9 % (42.0-52.0); LYMPH # 1.3 (1.2-3.4); MEAN CORPUSCULAR HEMOGLOBIN 31.1 pg (25.0-35.0); MEAN CORPUSCULAR HGB CONC 33.8 g/dl (31.0-37.0); MEAN PLATELET VOLUME 8.7 fl (7.0-11.0); MONO # 0.6 (0.1-0.6); MONO % 5.7 % (1.0-6.0)
[2017-05-01 12:04] LABS: INR 1.03 (0.93-1.08); PARTIAL THROMBOPLASTIN TIME 29.8 Seconds (23.7-30.8)
--- NOTE | 2017-05-01 13:32 | RAD ---
HISTORY: cough COMPARISON: 03/15/2017 FINDINGS: LUNGS: No active pulmonary disease. PLEURA: No significant pleural effusion identified, no pneumothorax apparent. CARDIOVASCULAR: Normal. OSSEOUS STRUCTURES: No significant abnormalities. VISUALIZED UPPER ABDOMEN: Normal. OTHER FINDINGS: None. IMPRESSION: No active disease.
--- NOTE | 2017-05-01 17:04 | CARD ---
APPROVED REPORT EKG Measurement Heart [id number] <Conclusion> Normal sinus rhythm Normal ECG
[2017-05-01] MEDS ORDERED: Pneumococcal 23-Valent Vaccine IM ONE (17:39)
[2017-05-01 17:40] VITALS: BMI 25.8
--- NOTE | 2017-05-02 07:30 | CP.PCM.HP ---
<Mary Covarrubias - Last Filed: 05/02/17 15:48> History of Present Illness - History of Present Illness History of Present Illness: CC: DIfficulty swallowing. 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 Patient is confused and is a very poor historian thus history was obtained from patient's and the chart. Patient was admitted back in March with similar complaints along with respiratory distress, had EGD and was found to have laryngeal mass, ENT was consulted, was taking to OR, had nasal intubation with decadron, was observed in ICU and extubated. Patient was started on modified dysphasia diet prior to discharge. Pathology of the mass revealed inflammatory changes, no malignancy. Patient was discharged to a rehab facility at [place] according to patient's . As per patient's , patient's patient's never really recovered from his ability to swallow. This time, patient has no respiratory distress. Unable to obtain detrail ROS due to mental status. 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 No history smoking, alcohol or tobacco as per family. Present on Admission - Present on Admission Any Indicators Present on Admission: No History of DVT/PE: No History of Uncontrolled Diabetes: No Urinary Catheter: No Decubitus Ulcer Present: No Review of Systems - Review of Systems Systems not reviewed;Unavailable: Dementia Past Patient History - Infectious Disease Hx of Infectious Diseases: None - Tetanus Immunizations Tetanus Immunization: Up to Date - Past Medical History & Family History Past Medical History?: Yes - Past Social History Smoking Status: Former Smoker Alcohol: None Drugs: Denies Home Situation {Lives}: Snf - CARDIAC Hx Cardiac Disorders: Yes (SEVERE KHYPHOSIS OF NECK) Hx Cardia Arrhythmia: Yes (AFIB) Hx Hypertension: Yes - PULMONARY Hx Respiratory Disorders: Yes (ASPIRATION PREC.LARYNGEAL MASS,H/O INTUBATION AND EXTUBATION) Hx Pneumonia: Yes (ASPIRATION PNEUMONIA) Other/Comment: PHARYNGITIS - NEUROLOGICAL Hx Neurological Disorder: Yes Hx Dementia: Yes Hx Parkinson's Disease: Yes - HEENT Hx HEENT Problems: Yes (hx of corneal transplant) - RENAL Hx Chronic Kidney Disease: No - ENDOCRINE/METABOLIC Hx Endocrine Disorders: No - HEMATOLOGICAL/ONCOLOGICAL Hx Blood Disorders: No - INTEGUMENTARY Hx Dermatological Problems: Yes - MUSCULOSKELETAL/RHEUMATOLOGICAL Hx Musculoskeletal Disorders: Yes Hx Falls: Yes - GASTROINTESTINAL Hx Gastrointestinal Disorders: Yes (CONSTIPATION) HX Swallowing Problems: Yes (DYSARTHIR,ANARTHRIA) - GENITOURINARY/GYNECOLOGICAL Hx Genitourinary Disorders: Yes Hx Incontinence: Yes - PSYCHIATRIC Hx Psychophysiologic Disorder: Yes Hx Anxiety: Yes Hx Substance Use: No - SURGICAL HISTORY Hx Surgeries: Yes - ANESTHESIA Hx Anesthesia Reactions: No Hx Malignant Hyperthermia: No Meds Allergies/Adverse Reactions: Allergies Allergy/AdvReac Type Severity Reaction Status Date / Time Penicillins Allergy RASH Verified 05/01/17 15:11 Benzodiazepines AdvReac FATIGUE Verified 05/01/17 15:11 Physical Exam - Constitutional Appears: No Acute Distress, Confused, Chronically Ill - Head Exam Head Exam: ATRAUMATIC, NORMAL INSPECTION, NORMOCEPHALIC - Eye Exam Eye Exam: EOMI, Normal appearance, PERRL. absent: Scleral icterus - ENT Exam ENT Exam: Mucous Membranes Moist - Neck Exam Neck exam: Positive for: Normal Inspection. Negative for: Lymphadenopathy, Meningismus, Tenderness - Respiratory Exam Respiratory Exam: Clear to Auscultation Bilateral, NORMAL BREATHING PATTERN. absent: Prolonged Expiratory Phase, Rales, Rhonchi, Wheezes, Respiratory Distress, Stridor - Cardiovascular Exam Cardiovascular Exam: REGULAR RHYTHM, RRR, +S1, +S2. absent: Bradycardia, Tachycardia, Gallop, JVD, Rubs, Systolic Murmur - GI/Abdominal Exam GI & Abdominal Exam: Normal Bowel Sounds, Soft. absent: Distended, Firm, Guarding, Rigid, Tenderness Additional comments: + ecchymosis on the abdomen. - Extremities Exam Extremities exam: Negative for: pedal edema, tenderness Additional comments: left knee abrasion. - Back Exam Back exam: NORMAL INSPECTION - Neurological Exam Additional comments: Confused and follows simple commands. Non intention tremors throughout. - Psychiatric Exam Psychiatric exam: Flat Affect - Skin Skin Exam: Abrasion (on the left knee. 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 Patient is NPO pending speech and swallow eval. Continue NS@ 100 CC/HR X1 litter. 1:1 for safety reason. Ativan prn for agitation. Clonidine patch for htn. Protonix for gi prophylaxis and Heparin sc fo DVT prophylaxis. Sinemet for Parkinson, and asa for CAD. Miralax and Colace for constipation. Patient is also on duoneb prn for SOB. Patient see, examined, and case discussed with Dr Chino. - Date & Time Date: 05/02/17 Time: 08:25 <Lloyd Chino S - Last Filed: 05/02/17 20:35> Results - Vital Signs Recent Vital Signs: Last Vital Signs Temp 98.6 F 05/02/17 15:58 Pulse 75 05/02/17 15:58 Resp 20 05/02/17 15:58 BP 96/47 L 05/02/17 15:58 Pulse Ox 98 05/02/17 15:58 - Labs Result Diagrams: 05/01/17 11:25 05/01/17 11:25 Assessment & Plan - Assessment and Plan (Free Text) Plan: Pt seen and examined. Agree with resident note. Labs reviewed. Spoke to family to give update. Will get GI and ENT evaluation. Pt has been declining. May need palliative care consult. NPO.
[2017-05-02] MEDS ORDERED: Albuterol-Ipratrop 3 mg / 0.5 (3 ml) UD IH PRN (08:39)
[2017-05-02] MEDS: Albuterol-Ipratrop 3 mg / 0.5 (3 ml) UD IH SCH ×3 (10:34→20:16)
[2017-05-02] MEDS: POLYETHYLENE GLYCOL 3350 17 GM/Dose PACKET PO SCH (17:01)
[2017-05-03] MEDS: Albuterol-Ipratrop 3 mg / 0.5 (3 ml) UD IH SCH ×4 (01:27→20:10)
[2017-05-03 07:08] LABS: BLOOD UREA NITROGEN 13 mg/dL (7-21); CALCIUM 8.6 mg/dL (8.4-10.5); CARBON DIOXIDE 26 mmol/L (21-33); CHLORIDE 103 mmol/L (98-107); GFR AFRICAN-AMERICAN > 60; GLUCOSE,RANDOM 98 mg/dL (70-110); SODIUM 134 mmol/L (132-148)
[2017-05-03 07:42] LABS: EOS % 0.4 % (1.5-5.0); GRAN # 5.67 (1.4-6.5); GRAN % 73.1 % (50.0-68.0); HEMATOCRIT 34.1 % (42.0-52.0); LYMPH # 1.5 (1.2-3.4); LYMPH % 19.8 % (22.0-35.0); MEAN CELL VOLUME 90.9 fl (80.0-105.0); MEAN CORPUSCULAR HEMOGLOBIN 30.4 pg (25.0-35.0); MEAN CORPUSCULAR HGB CONC 33.4 g/dl (31.0-37.0); MEAN PLATELET VOLUME 8.8 fl (7.0-11.0); MONO # 0.5 (0.1-0.6); MONO % 6.7 % (1.0-6.0); RED CELL DISTRIBUTION WIDTH 15.1 % (11.5-14.5); WHITE BLOOD COUNT 7.8 10^3/ul (4.5-11.0)
--- NOTE | 2017-05-03 07:50 | CON ---
EAR, NOSE AND THROAT CONSULTATION DATE: 05/02/2017 REQUESTING PHYSICIAN: Lloyd Chino MD REASON FOR CONSULTATION: Dysphagia. HISTORY OF PRESENT ILLNESS: The patient is a 76-year-old male with a past medical history of Parkinson disease, dementia, coronary artery disease, hypertension, hyperlipidemia, who resides in a mcc, was brought to [facility] on 05/01/2017 with complaints in the mcc of dysphagia. The patient is known to the Otolaryngology Service here at [facility] after the recent admission in March, in which the patient had episode of respiratory distress and had a suspicious lesions noted in the posterior glottis during an EGD. At that time, the patient was taken for nasal intubation and biopsies performed to the suspicious looking area, which found no malignancy. The patient was subsequently extubated and had been discharged to the rehab facility. Since the patient has been in [facility] evaluation by the speech and language pathology, who referred the patient on a pureed diet today with clear thick liquids. At the time of consultation, the patient is endorsing the history as above. He is denying any dysphagia or dysphonia, although he is a poor historian. There is no family at bedside and rest of the history is obtained by the nursing staff and the electronic medical chart. PAST MEDICAL HISTORY: As above. MEDICATIONS: Reviewed. ALLERGIES: PENICILLIN AND BENZODIAZEPINES. SOCIAL HISTORY: The patient has been living in the mcc. He has no tobacco, alcohol or illicit drug use history. REVIEW OF SYSTEMS: Review of systems was limited secondary to the patient is being a poor historian. PHYSICAL EXAMINATION: VITAL SIGNS: Temperature of 98.6, pulse rate 75, blood pressure 96/47, respiratory rate is 20, and O2 saturation 98% on room air. GENERAL: The patient is older than stated age of 76-year-old male. He is a poor historian. He does not appear in any acute distress. There is no stridor. There is no hoarseness. There is no drooling. The patient is noted to have heavy oral secretions. HEENT: Head is atraumatic and normocephalic. Ears; the external auricles are unremarkable. There is no masses or lesions noted. Nose; nares appear congested. There has a left septal spur. Otherwise, there is no purulence or epistaxis. Oral cavity/oropharynx; the patient has no upper maxillary dentition. His alveolar ridges are unremarkable. Tongue is mobile and midline. Hard and soft palate unremarkable. Uvula is noted to be in the midline. There are no masses in the oropharynx or posterior oropharyngeal wall. NECK: Supple. He is noted to be kyphotic in the cervical and thoracic spine. There is no gross adenopathy. No collections. PROCEDURE: Flexible fiber laryngoscopy was performed at the patient's bedside. The flexible fiberoptic laryngoscope was passed via the left naris. Left nasal appeared congested septal spur. Nasopharynx appears no mass or lesion. Scope is passed further downward. The base of the tongue is free of mass or lesion. Epiglottis was crisp on both laryngeal and lingual surfaces. He had some pooling of secretions in the right pyriform sinus. There was some fullness noted to the right posterior pharynx and postcricoid space. It is difficult to assess the pyriform sinus secondary to pooling secretions with some non-obstructing, nonspecific edema noted to the right posterior glottis; otherwise the false vocal cord themselves appeared unremarkable. True vocal cords were visualized easily with no masses or lesions visualized. LABORATORY DATA: White count is 10.0, hemoglobin 12.8, platelets are 166. Coagulation profiles unremarkable. BMP is unremarkable. Radiographic studies; the patient has no radiographic studies at this time. ASSESSMENT: The patient is a 76-year-old male with multiple medical comorbidities, who was admitted for dysphagia, seen by speech and language pathology to be cleared for a pureed thickened liquid diet. Currently, he is having no respiratory issues. There is nonspecific and non-obstructing edema noted in the right posterior glottis, which is consistent with previous examination. Previous biopsies had been performed revealing no malignancy. PLAN: It is note to be consider care at this time for this patient. Recommend continuing the diet for the speech and language pathologist. Recommended frequent oral care. Humidification for dry oral mucosa. In addition recommend aspiration precautions, head off bed elevation with eating. He should be kept on a proton-pump inhibitor daily; otherwise recommend continue to workup per the primary service. We will recommend active surveillance for the nonspecific signs in the posterior glottis and we will likely recommend reevaluation in the next 4-8 weeks. Final plan was discussed in detail with the nursing staff as well as the patient himself. Thank you for allowing us to participate in the patient's care. Guzman Schulte DO
--- NOTE | 2017-05-03 08:39 | CP.PCM.PN ---
<Mary Covarrubias - Last Filed: 05/03/17 12:44> Subjective - Date & Time of Evaluation Date of Evaluation: 05/03/17 Time of Evaluation: 07:30 - Subjective Subjective: Progress note for Dr Matti adorno. Patient is more awake today, denies any pain, denies cp, sob, n/v/d. Still on 1: 1 for safety. No acute overnight events. Still on 1:! for safety. Objective - Vital Signs/Intake and Output Vital Signs (last 24 hours): Temp Pulse Resp BP Pulse Ox 98.7 F 80 24 120/68 98 05/03/17 08:23 05/03/17 08:23 05/03/17 08:23 05/03/17 08:23 05/03/17 08:23 Intake and Output: 05/03/17 05/03/17 06:59 18:59 Output Total 60 Balance -60 - Medications Medications: Current Medications Albuterol/Ipratropium (Duoneb 3 Mg/0.5 Mg (3 Ml) Ud) [id number] [facility] Last Admin: 05/03/17 07:39 Dose: 3 ml Albuterol/Ipratropium (Duoneb 3 Mg/0.5 Mg (3 Ml) Ud) 3 ml IH Q2H PRN PRN Reason: Shortness of Breath Aspirin (Aspirin Chewable) [address] [facility] Last Admin: 05/02/17 17:03 Dose: 81 mg Atorvastatin Calcium (Lipitor) [address] [facility] Last Admin: 05/02/17 17:03 Dose: 10 mg Carbidopa/Levodopa (Sinemet) [address] [facility] Last Admin: 05/02/17 17:03 Dose: 2 tab Clonidine HCl (Catapres Tts1 0.1 Mg/24 Hr) 1 patch TD .EVERY SATURDAY [facility] Docusate Sodium (Colace) [address] [facility] Last Admin: 05/02/17 17:04 Dose: 100 mg Heparin Sodium (Porcine) (Heparin) 5,000 units SC Q12 ANNALISA PRN Reason: Protocol Last Admin: 05/02/17 21:19 Dose: 5,000 units Sodium Chloride (Sodium Chloride 0.9%) 1,000 mls @ 100 mls/hr IV .Q10H [facility] Last Admin: 05/01/17 22:55 Dose: 100 mls/hr Lorazepam (Ativan) 0.5 mg IVP Q6H PRN; Protocol PRN Reason: Agitation Last Admin: 05/03/17 05:26 Dose: 0.5 mg Pantoprazole Sodium (Protonix Inj) [address] [facility] Last Admin: 05/02/17 17:03 Dose: 40 mg Polyethylene Glycol (Miralax) [address] [facility] Last Admin: 05/02/17 17:01 Dose: 17 gm Sertraline HCl (Zoloft) [address] [facility] Last Admin: 05/02/17 17:03 Dose: 25 mg - Labs Labs: 05/03/17 06:15 05/03/17 06:15 PT 11.1 Seconds (9.9-11.8) 05/01/17 11:25 INR 1.03 (0.93-1.08) 05/01/17 11:25 APTT 29.8 Seconds (23.7-30.8) 05/01/17 11:25 - Constitutional Appears: No Acute Distress, Confused, Chronically Ill - Head Exam Head Exam: ATRAUMATIC, NORMAL INSPECTION, NORMOCEPHALIC - Eye Exam Additional comments: Equal, round and reactive to light. patient has difficulty opening his eyes voluntarily. - ENT Exam ENT Exam: Mucous Membranes Moist, Normal Exam - Neck Exam Neck Exam: Normal Inspection Additional comments: Kyphotic - Respiratory Exam Respiratory Exam: Clear to Ausculation Bilateral, NORMAL BREATHING PATTERN - Cardiovascular Exam Cardiovascular Exam: REGULAR RHYTHM, RRR, +S1, +S2. absent: Bradycardia, Tachycardia, Gallop, Irregular Rhythm, JVD, Rubs, Murmur - GI/Abdominal Exam GI & Abdominal Exam: Soft, Normal Bowel Sounds. absent: Distended, Firm, Guarding, Rigid, Tenderness Additional comments: + Bruising on the abdomen. - Extremities Exam Extremities Exam: absent: Pedal Edema Additional comments: Gross movement of the lower extremities b/l. - Neurological Exam Neurological Exam: Awake Additional comments: follows simple commands, verbal, but a little incoherent. + resting tremors in b/l upper and lower extremities. - Psychiatric Exam Psychiatric exam: Flat Affect - Skin Skin Exam: Abrasion (on the left knee, abdominal bruising. 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 Was started on modified dysphasia diet yesterday, will see how many tolerates that. ENT was consulted, appreciated Dr Schulte's recommendations. Pending Gi eval. Will continue patient on protonix for GERD. Patient has ativan prn for agitation. Clonidine patch for htn. Patient is also on sinemet for Parkinson, and asa for CAD. Miralax and Colace for constipation. Duoneb prn for SOB. Heparin sc fo DVT prophylaxis. Palliative consult pending. Patient see, examined, and case discussed with Dr Chino. <Lloyd Chino S - Last Filed: 05/03/17 21:04> Objective - Vital Signs/Intake and Output Vital Signs (last 24 hours): Temp Pulse Resp BP Pulse Ox 98.7 F 79 20 127/71 97 05/03/17 16:00 05/03/17 16:00 05/03/17 16:00 05/03/17 16:00 05/03/17 16:00 Intake and Output: 05/03/17 05/04/17 18:59 06:59 Intake Total 360 Balance 360 - Medications Medications: Current Medications Albuterol/Ipratropium (Duoneb 3 Mg/0.5 Mg (3 Ml) Ud) [id number] [facility] Last Admin: 05/03/17 20:10 Dose: 3 ml Albuterol/Ipratropium (Duoneb 3 Mg/0.5 Mg (3 Ml) Ud) 3 ml IH Q2H PRN PRN Reason: Shortness of Breath Aspirin (Aspirin Chewable) [address] [facility] Last Admin: 05/03/17 10:22 Dose: 81 mg Atorvastatin Calcium (Lipitor) [address] [facility] Last Admin: 05/03/17 18:26 Dose: 10 mg Carbidopa/Levodopa (Sinemet) [address] [facility] Last Admin: 05/03/17 18:26 Dose: 2 tab Clonidine HCl (Catapres Tts1 0.1 Mg/24 Hr) 1 patch TD .EVERY SATURDAY [facility] Docusate Sodium (Colace) [address] [facility] Last Admin: 05/03/17 18:28 Dose: Not Given Heparin Sodium (Porcine) (Heparin) 5,000 units SC Q12 ANNALISA PRN Reason: Protocol Last Admin: 05/03/17 10:22 Dose: 5,000 units Lorazepam (Ativan) 0.5 mg IVP Q6H PRN; Protocol PRN Reason: Agitation Last Admin: 05/03/17 05:26 Dose: 0.5 mg Pantoprazole Sodium (Protonix Inj) [address] [facility] Last Admin: 05/03/17 10:22 Dose: 40 mg Polyethylene Glycol (Miralax) 17 gm PO DAILY [facility] Last Admin: 05/03/17 10:22 Dose: 17 gm Sertraline HCl (Zoloft) [address] [facility] Last Admin: 05/03/17 18:26 Dose: 25 mg - Labs Labs: 05/03/17 06:15 05/03/17 06:15 PT 11.1 Seconds (9.9-11.8) 05/01/17 11:25 INR 1.03 (0.93-1.08) 05/01/17 11:25 APTT 29.8 Seconds (23.7-30.8) 05/01/17 11:25 Assessment and Plan - Assessment and Plan (Free Text) Plan: Pt seen and examined. Resident note reviewed and I agree with it. Palliative care consult appreciated. Spoke to Carolyn from palliative care. Will meet with [facility]. Pt is declining. May need Hospice. Poor prognosis.
--- NOTE | 2017-05-03 10:10 | CP.PCM.CON ---
History of Present Illness - History of Present Illness History of Present Illness: Palliative consult requested by Dr Sy Chino Reason: Goals of care 76 year old male who was sent [place] [facility] term care [facility] with dysphagia. The patient was admitted in March with similar issue also associated with respiratory distress. He was found to have a non cancerous layngeal mass. He was placed on pureed diet which he was tolerating until recently. PMHx: Parkinson's, dementia, CAD, HTN,HLD, dysphasia. Family History: Non contributory Social History: Non smoker, no alcohol or drug use. ,currently in [place] ( [facility]). Advance Care Planning: The patient does not have an Advanced Directive. His son Douglas [phone] is POA. Review of Systems: As per HPI, unable to obtain complete review as the patient is altered and non verbal Past Patient History - Infectious Disease Hx of Infectious Diseases: None - Tetanus Immunizations Tetanus Immunization: Up to Date - Past Medical History & Family History Past Medical History?: Yes - Past Social History Smoking Status: Former Smoker Alcohol: None Drugs: Denies Home Situation {Lives}: [facility] - CARDIAC Hx Cardiac Disorders: Yes (SEVERE KHYPHOSIS OF NECK) Hx Cardia Arrhythmia: Yes (AFIB) Hx Hypertension: Yes - PULMONARY Hx Respiratory Disorders: Yes (ASPIRATION PREC.LARYNGEAL MASS,H/O INTUBATION AND EXTUBATION) Hx Pneumonia: Yes (ASPIRATION PNEUMONIA) Other/Comment: PHARYNGITIS - NEUROLOGICAL Hx Neurological Disorder: Yes Hx Dementia: Yes Hx Parkinson's Disease: Yes - HEENT Hx HEENT Problems: Yes (hx of corneal transplant) - RENAL Hx Chronic Kidney Disease: No - ENDOCRINE/METABOLIC Hx Endocrine Disorders: No - HEMATOLOGICAL/ONCOLOGICAL Hx Blood Disorders: No - INTEGUMENTARY Hx Dermatological Problems: Yes - MUSCULOSKELETAL/RHEUMATOLOGICAL Hx Musculoskeletal Disorders: Yes Hx Falls: Yes - GASTROINTESTINAL Hx Gastrointestinal Disorders: Yes (CONSTIPATION) HX Swallowing Problems: Yes (DYSARTHIR,ANARTHRIA) - GENITOURINARY/GYNECOLOGICAL Hx Genitourinary Disorders: Yes Hx Incontinence: Yes - PSYCHIATRIC Hx Psychophysiologic Disorder: Yes Hx Anxiety: Yes Hx Substance Use: No - SURGICAL HISTORY Hx Surgeries: Yes - ANESTHESIA Hx Anesthesia Reactions: No Hx Malignant Hyperthermia: No Meds Allergies/Adverse Reactions: Allergies Allergy/AdvReac Type Severity Reaction Status Date / Time Penicillins Allergy RASH Verified 05/01/17 15:11 Benzodiazepines AdvReac FATIGUE Verified 05/01/17 15:11 - Medications Medications: Current Medications Albuterol/Ipratropium (Duoneb 3 Mg/0.5 Mg (3 Ml) Ud) 3 ml IH [id number] [facility] Last Admin: 05/03/17 07:39 Dose: 3 ml Albuterol/Ipratropium (Duoneb 3 Mg/0.5 Mg (3 Ml) Ud) 3 ml IH Q2H PRN PRN Reason: Shortness of Breath Aspirin (Aspirin Chewable) 81 mg PO DAILY [facility] Last Admin: 05/02/17 17:03 Dose: 81 mg Atorvastatin Calcium (Lipitor) 10 mg PO DIN [facility] Last Admin: 05/02/17 17:03 Dose: 10 mg Carbidopa/Levodopa (Sinemet) 2 tab PO TID [facility] Last Admin: 05/02/17 17:03 Dose: 2 tab Clonidine HCl (Catapres Tts1 0.1 Mg/24 Hr) 1 patch TD .EVERY SATURDAY [facility] Docusate Sodium (Colace) 100 mg PO TID [facility] Last Admin: 05/02/17 17:04 Dose: 100 mg Heparin Sodium (Porcine) (Heparin) 5,000 units SC Q12 [facility] PRN Reason: Protocol Last Admin: 05/02/17 21:19 Dose: 5,000 units Lorazepam (Ativan) 0.5 mg IVP Q6H PRN; Protocol PRN Reason: Agitation Last Admin: 05/03/17 05:26 Dose: 0.5 mg Pantoprazole Sodium (Protonix Inj) 40 mg IVP DAILY [facility] Last Admin: 05/02/17 17:03 Dose: 40 mg Polyethylene Glycol (Miralax) 17 gm PO DAILY [facility] Last Admin: 05/02/17 17:01 Dose: 17 gm Sertraline HCl (Zoloft) 25 mg PO BID [facility] Last Admin: 05/02/17 17:03 Dose: 25 mg Physical Exam - Constitutional Appears: Chronically Ill - Head Exam Head Exam: NORMAL INSPECTION - Eye Exam Eye Exam: Normal appearance, PERRL - ENT Exam ENT Exam: Mucous Membranes Moist - Neck Exam Neck exam: Positive for: Normal Inspection - Respiratory Exam Respiratory Exam: Decreased Breath Sounds, NORMAL BREATHING PATTERN - Cardiovascular Exam Cardiovascular Exam: REGULAR RHYTHM, +S1, +S2 - GI/Abdominal Exam GI & Abdominal Exam: Hypoactive Bowel Sounds, Soft - Extremities Exam Extremities exam: Positive for: normal inspection, pedal pulses present Additional comments: tremors of upper extremities - Back Exam Back exam: NORMAL INSPECTION - Neurological Exam Neurological exam: Altered - Skin Skin Exam: Dry, Warm - Additional Findings Additional findings: Palliative performance scale rating 30% Results - Vital Signs Recent Vital Signs: Last Vital Signs Temp 98.7 F 05/03/17 08:23 Pulse 80 05/03/17 08:23 Resp 24 05/03/17 08:23 BP 120/68 05/03/17 08:23 Pulse Ox 98 05/03/17 08:23 - Labs Result Diagrams: 05/03/17 06:15 05/03/17 06:15 Labs: Laboratory Results - last 24 hr 05/03/17 05/03/17 06:15 06:15 WBC 7.8 D RBC 3.75 Hgb 11.4 L Hct 34.1 L MCV 90.9 MCH 30.4 MCHC 33.4 RDW 15.1 H Plt Count 156 MPV 8.8 Gran % 73.1 H Lymph % (Auto) 19.8 L Robeson % (Auto) 6.7 H Eos % (Auto) 0.4 L Baso % (Auto) 0.0 Gran # 5.67 Lymph # 1.5 Robeson # 0.5 Eos # 0.0 Baso # 0.00 Sodium 134 Potassium 4.0 Chloride 103 Carbon Dioxide 26 Anion Gap 9 L BUN 13 Creatinine 0.7 Est GFR ( Amer) > 60 Est GFR (Non-Af Amer) > 60 Random Glucose 98 Calcium 8.6 Assessment & Plan - Assessment and Plan (Free Text) Assessment: 76 year old male with history of Parkinson's disease, dementia, CAD,HTN, laryngeal mass who was admitted with dysphagia. The patient was cooperative yesterday and participated in swallow evaluation. The patient demonstrated mild to moderate oropharyngeal dysphagia with risk for aspiration. A diet of puree consistency diet was recommended. The nursing staff reports that the patient was agitated and combative during the night. He is currently resting in bed, he is lethargic, non verbal not following commands. I had a very lengthy discussion with the patient's son, Douglas Atwood(POA) via phone. The son states that the patient is DNR/DNI. We also spoke about future goals of care. Son recognizes that father's health is declining. Son aware that the father will likely continue to have difficulty eating/swallowing as Parkinson's/dementia progress. Benefits and burdens of PEG explained,questions answered. Son states that his father did not want permanent feeding tube. Son is now thinking about transitioning his father to hospice care at home. Son will speak with family this evening to solidify this plan. If family continues with plan for hospice, then the patient would be discharged home. Time spent in goals of care discussion/advance care planning and end of life counseling,45 minutes Plan: DNR/DNI Advance care planning
[2017-05-03] MEDS: POLYETHYLENE GLYCOL 3350 17 GM/Dose PACKET PO SCH (10:22)
[2017-05-03 17:08] VITALS: RESP 20
[2017-05-04] MEDS: Albuterol-Ipratrop 3 mg / 0.5 (3 ml) UD IH SCH ×4 (01:19→19:51)
[2017-05-04 07:03] LABS: EOS # 0.1 (0.0-0.7); EOS % 0.8 % (1.5-5.0); GRAN # 6.01 (1.4-6.5); GRAN % 75.4 % (50.0-68.0); HEMATOCRIT 34.5 % (42.0-52.0); LYMPH # 1.4 (1.2-3.4); LYMPH % 18.1 % (22.0-35.0); MEAN CELL VOLUME 91.8 fl (80.0-105.0); MEAN CORPUSCULAR HEMOGLOBIN 30.9 pg (25.0-35.0); MEAN CORPUSCULAR HGB CONC 33.6 g/dl (31.0-37.0); MEAN PLATELET VOLUME 9.1 fl (7.0-11.0); MONO # 0.5 (0.1-0.6); MONO % 5.7 % (1.0-6.0); RED CELL DISTRIBUTION WIDTH 15.2 % (11.5-14.5)
[2017-05-04 07:12] LABS: BLOOD UREA NITROGEN 10 mg/dL (7-21); CALCIUM 8.8 mg/dL (8.4-10.5); CARBON DIOXIDE 25 mmol/L (21-33); CHLORIDE 100 mmol/L (98-107); GFR AFRICAN-AMERICAN > 60; GLUCOSE,RANDOM 110 mg/dL (70-110); SODIUM 132 mmol/L (132-148)
[2017-05-04] MEDS: POLYETHYLENE GLYCOL 3350 17 GM/Dose PACKET PO SCH ×2 (13:32→13:35)
[2017-05-05] MEDS: Albuterol-Ipratrop 3 mg / 0.5 (3 ml) UD IH SCH ×4 (01:46→19:54)
[2017-05-05 06:34] LABS: BASO # 0.01 K/mm3 (0.0-2.0); BASO % 0.1 % (0.0-3.0); EOS # 0.1 (0.0-0.7); GRAN # 5.09 (1.4-6.5); GRAN % 73.2 % (50.0-68.0); HEMATOCRIT 34.1 % (42.0-52.0); LYMPH # 1.4 (1.2-3.4); LYMPH % 20.5 % (22.0-35.0); MEAN CELL VOLUME 91.9 fl (80.0-105.0); MEAN CORPUSCULAR HGB CONC 33.7 g/dl (31.0-37.0); MEAN PLATELET VOLUME 8.9 fl (7.0-11.0); MONO # 0.4 (0.1-0.6); MONO % 5.2 % (1.0-6.0); RED CELL DISTRIBUTION WIDTH 15.3 % (11.5-14.5)
[2017-05-05 06:49] LABS: BLOOD UREA NITROGEN 13 mg/dL (7-21); CALCIUM 8.8 mg/dL (8.4-10.5); CARBON DIOXIDE 25 mmol/L (21-33); CHLORIDE 100 mmol/L (98-107); GFR AFRICAN-AMERICAN > 60; GLUCOSE,RANDOM 107 mg/dL (70-110); SODIUM 131 mmol/L (132-148)
[2017-05-05] MEDS: POLYETHYLENE GLYCOL 3350 17 GM/Dose PACKET PO SCH (09:17)
--- NOTE | 2017-05-05 14:15 | CP.PCM.CON ---
History of Present Illness - History of Present Illness History of Present Illness: this 76-year-old patient with a past medical history of Parkinson's disease hypertension coronary artery disease severe kyphosis of the neck was sent to the longterm for difficulty in swallowing. Patient was in the hospital in March . Patient did have subglottic edema , initial EGD was aborted due to impending airway obstruction. Subsequently patient was nasally intubated and had an endoscopy done. No foreign body was noticed but there was some thickening in the cricopharyngeal area with ulceration biopsies were done and that was negative for malignancy. Patient was started back on pured diet was tolerating it . Patient was initially also was treated with a steroid and antibiotics clinically improved. Patient was in the longterm on puree diet . The patient was sent back the cause of this difficulty in swallowing again Patient was again had a swallowing evaluation done able to tolerate pured food and was started back on that PAST MEDICAL HISTORY as above fAMILY HISTORY noncontributory sOCIAL HISTORY longterm resident denies smoking or alcohol REVIEW OF THE SYSTEM positive as above limited as per the chart review Past Patient History - Infectious Disease Hx of Infectious Diseases: None - Tetanus Immunizations Tetanus Immunization: Up to Date - Past Medical History & Family History Past Medical History?: Yes - Past Social History Smoking Status: Former Smoker Alcohol: None Drugs: Denies Home Situation {Lives}: [facility] - CARDIAC Hx Cardiac Disorders: Yes (SEVERE KHYPHOSIS OF NECK) Hx Cardia Arrhythmia: Yes (AFIB) Hx Hypertension: Yes - PULMONARY Hx Respiratory Disorders: Yes (ASPIRATION PREC.LARYNGEAL MASS,H/O INTUBATION AND EXTUBATION) Hx Pneumonia: Yes (ASPIRATION PNEUMONIA) Other/Comment: PHARYNGITIS - NEUROLOGICAL Hx Neurological Disorder: Yes Hx Dementia: Yes Hx Parkinson's Disease: Yes - HEENT Hx HEENT Problems: Yes (hx of corneal transplant) - RENAL Hx Chronic Kidney Disease: No - ENDOCRINE/METABOLIC Hx Endocrine Disorders: No - HEMATOLOGICAL/ONCOLOGICAL Hx Blood Disorders: No - INTEGUMENTARY Hx Dermatological Problems: Yes - MUSCULOSKELETAL/RHEUMATOLOGICAL Hx Musculoskeletal Disorders: Yes Hx Falls: Yes - GASTROINTESTINAL Hx Gastrointestinal Disorders: Yes (CONSTIPATION) HX Swallowing Problems: Yes (DYSARTHIR,ANARTHRIA) - GENITOURINARY/GYNECOLOGICAL Hx Genitourinary Disorders: Yes Hx Incontinence: Yes - PSYCHIATRIC Hx Psychophysiologic Disorder: Yes Hx Anxiety: Yes Hx Substance Use: No - SURGICAL HISTORY Hx Surgeries: Yes - ANESTHESIA Hx Anesthesia Reactions: No Hx Malignant Hyperthermia: No Meds Allergies/Adverse Reactions: Allergies Allergy/AdvReac Type Severity Reaction Status Date / Time Penicillins Allergy RASH Verified 05/01/17 15:11 Benzodiazepines AdvReac FATIGUE Verified 05/01/17 15:11 - Medications Medications: Current Medications Albuterol/Ipratropium (Duoneb 3 Mg/0.5 Mg (3 Ml) Ud) 3 ml IH [id number] [facility] Last Admin: 05/02/17 20:16 Dose: 3 ml Albuterol/Ipratropium (Duoneb 3 Mg/0.5 Mg (3 Ml) Ud) 3 ml IH Q2H PRN PRN Reason: Shortness of Breath Aspirin (Aspirin Chewable) 81 mg PO DAILY [facility] Last Admin: 05/02/17 17:03 Dose: 81 mg Atorvastatin Calcium (Lipitor) 10 mg PO DIN [facility] Last Admin: 05/02/17 17:03 Dose: 10 mg Carbidopa/Levodopa (Sinemet) 2 tab PO TID [facility] Last Admin: 05/02/17 17:03 Dose: 2 tab Clonidine HCl (Catapres Tts1 0.1 Mg/24 Hr) 1 patch TD .EVERY SATURDAY [facility] Docusate Sodium (Colace) 100 mg PO TID [facility] Last Admin: 05/02/17 17:04 Dose: 100 mg Heparin Sodium (Porcine) (Heparin) 5,000 units SC Q12 [facility] PRN Reason: Protocol Last Admin: 05/02/17 21:19 Dose: 5,000 units Sodium Chloride (Sodium Chloride 0.9%) 1,000 mls @ 100 mls/hr IV .Q10H [facility] Last Admin: 05/01/17 22:55 Dose: 100 mls/hr Lorazepam (Ativan) 0.5 mg IVP Q6H PRN; Protocol PRN Reason: Agitation Last Admin: 05/02/17 04:25 Dose: 0.5 mg Pantoprazole Sodium (Protonix Inj) 40 mg IVP DAILY [facility] Last Admin: 05/02/17 17:03 Dose: 40 mg Polyethylene Glycol (Miralax) 17 gm PO DAILY [facility] Last Admin: 05/02/17 17:01 Dose: 17 gm Sertraline HCl (Zoloft) 25 mg PO BID [facility] Last Admin: 05/02/17 17:03 Dose: 25 mg Physical Exam - Constitutional Appears: No Acute Distress - Head Exam Head Exam: ATRAUMATIC, NORMOCEPHALIC - Eye Exam Eye Exam: EOMI, PERRL. absent: Scleral icterus - Neck Exam Additional comments: severe kyphosis - Respiratory Exam Respiratory Exam: NORMAL BREATHING PATTERN. absent: Rales, Rhonchi - Cardiovascular Exam Cardiovascular Exam: +S1, +S2. absent: JVD - GI/Abdominal Exam GI & Abdominal Exam: Soft. absent: Mass, Tenderness - Extremities Exam Extremities exam: Positive for: pedal pulses present. Negative for: calf tenderness, pedal edema - Neurological Exam Neurological exam: Alert - Psychiatric Exam Psychiatric exam: Flat Affect Results - Vital Signs Recent Vital Signs: Last Vital Signs Temp 98.6 F 05/02/17 15:58 Pulse 75 05/02/17 15:58 Resp 20 05/02/17 15:58 BP 96/47 L 05/02/17 15:58 Pulse Ox 98 05/02/17 15:58 - Labs Result Diagrams: 05/05/17 06:00 05/05/17 06:00 Assessment & Plan - Assessment and Plan (Free Text) Assessment: this 76-year-old patient with severe kyphosis Parkinson's disease chronic difficulty in swallowing on a pured diet was transferred from the longterm with the difficulty in swallowing. Patient is being evaluated by the speech therapist now. Patient was able to tolerate pure diet with assistance. Patient did have an endoscopy done and also ENT evaluation of the cricopharyngeal area ulcerated area biopsy negative for malignancy. Careful monitoring with the assistance pured diet Technically difficult feeding tube is needed it may be difficult to pass by endoscopy clearly wE may have to consider percutaneous approach. Family is considering comfort care measures now - Date & Time Date: 05/02/17 Time: 19:00
--- NOTE | 2017-05-05 14:20 | CP.PCM.PN ---
Subjective - Date & Time of Evaluation Date of Evaluation: 05/03/17 Time of Evaluation: 16:30 - Subjective Subjective: tolerating the pure diet. Patient is being considered for hospice care by the family Objective - Vital Signs/Intake and Output Vital Signs (last 24 hours): Temp Pulse Resp BP Pulse Ox 98.7 F 79 20 127/71 97 05/03/17 16:00 05/03/17 16:00 05/03/17 16:00 05/03/17 16:00 05/03/17 16:00 Intake and Output: 05/03/17 05/04/17 18:59 06:59 Intake Total 360 Balance 360 - Medications Medications: Current Medications Albuterol/Ipratropium (Duoneb 3 Mg/0.5 Mg (3 Ml) Ud) 3 ml IH [id number] [facility] Last Admin: 05/03/17 20:10 Dose: 3 ml Albuterol/Ipratropium (Duoneb 3 Mg/0.5 Mg (3 Ml) Ud) 3 ml IH Q2H PRN PRN Reason: Shortness of Breath Aspirin (Aspirin Chewable) 81 mg PO DAILY [facility] Last Admin: 05/03/17 10:22 Dose: 81 mg Atorvastatin Calcium (Lipitor) 10 mg PO DIN [facility] Last Admin: 05/03/17 18:26 Dose: 10 mg Carbidopa/Levodopa (Sinemet) 2 tab PO TID [facility] Last Admin: 05/03/17 18:26 Dose: 2 tab Clonidine HCl (Catapres Tts1 0.1 Mg/24 Hr) 1 patch TD .EVERY SATURDAY [facility] Docusate Sodium (Colace) 100 mg PO TID [facility] Last Admin: 05/03/17 18:28 Dose: Not Given Heparin Sodium (Porcine) (Heparin) 5,000 units SC Q12 ANNALISA PRN Reason: Protocol Last Admin: 05/03/17 10:22 Dose: 5,000 units Lorazepam (Ativan) 0.5 mg IVP Q6H PRN; Protocol PRN Reason: Agitation Last Admin: 05/03/17 05:26 Dose: 0.5 mg Pantoprazole Sodium (Protonix Inj) 40 mg IVP DAILY [facility] Last Admin: 05/03/17 10:22 Dose: 40 mg Polyethylene Glycol (Miralax) 17 gm PO DAILY [facility] Last Admin: 05/03/17 10:22 Dose: 17 gm Sertraline HCl (Zoloft) 25 mg PO BID [facility] Last Admin: 05/03/17 18:26 Dose: 25 mg - Labs Labs: 05/03/17 06:15 05/03/17 06:15 PT 11.1 Seconds (9.9-11.8) 05/01/17 11:25 INR 1.03 (0.93-1.08) 05/01/17 11:25 APTT 29.8 Seconds (23.7-30.8) 05/01/17 11:25 - Constitutional Appears: No Acute Distress - Head Exam Head Exam: ATRAUMATIC, NORMOCEPHALIC - Eye Exam Eye Exam: EOMI, PERRL. absent: Scleral icterus - Neck Exam Additional comments: severe kyphosis - Respiratory Exam Respiratory Exam: NORMAL BREATHING PATTERN. absent: Rales, Rhonchi - Cardiovascular Exam Cardiovascular Exam: +S1, +S2. absent: JVD - GI/Abdominal Exam GI & Abdominal Exam: Soft. absent: Tenderness, Mass - Extremities Exam Extremities Exam: absent: Calf Tenderness, Pedal Edema - Neurological Exam Neurological Exam: Alert, Awake - Psychiatric Exam Psychiatric exam: Flat Affect Assessment and Plan - Assessment and Plan (Free Text) Assessment: tolerating pured diet p
--- NOTE | 2017-05-05 14:27 | CP.PCM.PN ---
Subjective - Date & Time of Evaluation Date of Evaluation: 05/04/17 Time of Evaluation: 14:00 - Subjective Subjective: tolerating pure diet Objective - Vital Signs/Intake and Output Vital Signs (last 24 hours): Temp Pulse Resp BP Pulse Ox 98 F 79 20 121/62 96 05/03/17 23:00 05/03/17 23:00 05/03/17 23:00 05/03/17 23:00 05/03/17 23:00 - Medications Medications: Current Medications Acetaminophen (Tylenol 325mg Tab) 650 mg PO Q6H PRN PRN Reason: Pain, moderate (4-7) Last Admin: 05/04/17 17:42 Dose: 650 mg Albuterol/Ipratropium (Duoneb 3 Mg/0.5 Mg (3 Ml) Ud) 3 ml IH [id number] [facility] Last Admin: 05/04/17 19:51 Dose: 3 ml Albuterol/Ipratropium (Duoneb 3 Mg/0.5 Mg (3 Ml) Ud) 3 ml IH Q2H PRN PRN Reason: Shortness of Breath Aspirin (Aspirin Chewable) 81 mg PO DAILY [facility] Last Admin: 05/04/17 13:11 Dose: 81 mg Atorvastatin Calcium (Lipitor) 10 mg PO 1800 [facility] Last Admin: 05/04/17 17:42 Dose: 10 mg Carbidopa/Levodopa (Sinemet) 2 tab PO TID [facility] Last Admin: 05/04/17 17:41 Dose: 2 tab Clonidine HCl (Catapres Tts1 0.1 Mg/24 Hr) 1 patch TD .EVERY SATURDAY [facility] Docusate Sodium (Colace) 100 mg PO TID [facility] Last Admin: 05/04/17 14:59 Dose: Not Given Heparin Sodium (Porcine) (Heparin) 5,000 units SC Q12 ANNALISA PRN Reason: Protocol Last Admin: 05/04/17 21:08 Dose: 5,000 units Lorazepam (Ativan) 0.5 mg IVP Q6H PRN; Protocol PRN Reason: Agitation Last Admin: 05/03/17 05:26 Dose: 0.5 mg Pantoprazole Sodium (Protonix Inj) 40 mg IVP DAILY [facility] Last Admin: 05/04/17 13:12 Dose: 40 mg Polyethylene Glycol (Miralax) 17 gm PO DAILY [facility] Last Admin: 05/04/17 13:35 Dose: Not Given Sertraline HCl (Zoloft) 25 mg PO BID [facility] Last Admin: 05/04/17 17:42 Dose: 25 mg - Labs Labs: 05/04/17 06:40 05/04/17 06:40 PT 11.1 Seconds (9.9-11.8) 05/01/17 11:25 INR 1.03 (0.93-1.08) 05/01/17 11:25 APTT 29.8 Seconds (23.7-30.8) 05/01/17 11:25 - Constitutional Appears: No Acute Distress - Head Exam Head Exam: ATRAUMATIC, NORMOCEPHALIC - Eye Exam Eye Exam: EOMI, PERRL. absent: Scleral icterus - Neck Exam Neck Exam: absent: Lymphadenopathy Additional comments: severe kyphosis - Respiratory Exam Respiratory Exam: NORMAL BREATHING PATTERN. absent: Rhonchi, Wheezes - Cardiovascular Exam Cardiovascular Exam: +S1, +S2. absent: JVD - GI/Abdominal Exam GI & Abdominal Exam: Soft, Normal Bowel Sounds. 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 Patient is now tolerating pured food. patient also has had sister Parkinson's Palliative care note was reviewed family does not want a feeding tube. Patient still 1-1 Family is considering hospice care PLAN Continue pured food only with assistance. Continue supportive care Long-term prognosis poor
--- NOTE | 2017-05-05 23:34 | CP.PCM.PN ---
Subjective - Date & Time of Evaluation Date of Evaluation: 05/04/17 Time of Evaluation: 10:00 - Subjective Subjective: he is drowsy. responds minimally to verbal commands. Arousable. Able to swollow food. Moving all limbs. Objective - Vital Signs/Intake and Output Vital Signs (last 24 hours): Temp Pulse Resp BP Pulse Ox 98.9 F 83 20 102/83 100 05/05/17 17:18 05/05/17 17:18 05/05/17 17:18 05/05/17 17:18 05/05/17 17:18 Intake and Output: 05/05/17 05/06/17 18:59 06:59 Intake Total 480 Output Total 400 Balance 80 - Medications Medications: Current Medications Acetaminophen (Tylenol 325mg Tab) 650 mg PO Q6H PRN PRN Reason: Pain, moderate (4-7) Last Admin: 05/04/17 17:42 Dose: 650 mg Albuterol/Ipratropium (Duoneb 3 Mg/0.5 Mg (3 Ml) Ud) 3 ml IH [id number] [facility] Last Admin: 05/05/17 19:54 Dose: 3 ml Albuterol/Ipratropium (Duoneb 3 Mg/0.5 Mg (3 Ml) Ud) 3 ml IH Q2H PRN PRN Reason: Shortness of Breath Aspirin (Aspirin Chewable) 81 mg PO DAILY [facility] Last Admin: 05/05/17 09:16 Dose: 81 mg Atorvastatin Calcium (Lipitor) 10 mg PO 1800 [facility] Last Admin: 05/05/17 17:30 Dose: 10 mg Carbidopa/Levodopa (Sinemet) 2 tab PO TID [facility] Last Admin: 05/05/17 17:31 Dose: 2 tab Clonidine HCl (Catapres Tts1 0.1 Mg/24 Hr) 1 patch TD .EVERY SATURDAY [facility] Docusate Sodium (Colace Liquid) 100 mg PO TID [facility] Last Admin: 05/05/17 19:53 Dose: Not Given Heparin Sodium (Porcine) (Heparin) 5,000 units SC Q12 [facility] PRN Reason: Protocol Last Admin: 05/05/17 21:50 Dose: 5,000 units Lorazepam (Ativan) 0.5 mg IVP Q6H PRN; Protocol PRN Reason: Agitation Last Admin: 05/03/17 05:26 Dose: 0.5 mg Pantoprazole Sodium (Protonix Inj) 40 mg IVP DAILY [facility] Last Admin: 05/05/17 09:15 Dose: 40 mg Polyethylene Glycol (Miralax) 17 gm PO DAILY [facility] Last Admin: 05/05/17 09:17 Dose: 17 gm Sertraline HCl (Zoloft) 25 mg PO BID [facility] Last Admin: 05/05/17 17:31 Dose: 25 mg - Labs Labs: 05/05/17 06:00 05/05/17 06:00 PT 11.1 Seconds (9.9-11.8) 05/01/17 11:25 INR 1.03 (0.93-1.08) 05/01/17 11:25 APTT 29.8 Seconds (23.7-30.8) 05/01/17 11:25 - Constitutional Appears: Chronically Ill - Head Exam Head Exam: ATRAUMATIC, NORMAL INSPECTION, NORMOCEPHALIC - Eye Exam Pupil Exam: NORMAL ACCOMODATION - ENT Exam ENT Exam: Mucous Membranes Moist, Normal Exam - Neck Exam Neck Exam: Normal Inspection - Respiratory Exam Respiratory Exam: Clear to Ausculation Bilateral, NORMAL BREATHING PATTERN - Cardiovascular Exam Cardiovascular Exam: REGULAR RHYTHM, +S1, +S2 - Extremities Exam Extremities Exam: Normal Capillary Refill, Normal Inspection - Back Exam Back Exam: NORMAL INSPECTION - Skin Skin Exam: Normal Color, Warm Assessment and Plan - Assessment and Plan (Free Text) Assessment: 1. laryngeal mass 2. dysphagia 3. CAD 4. Parkinsons 5. Dementia 6. CAD Plan : continue supportive care. accepting orally. No pain. family considering home hospice. continue PO meds. able to swallow. Continue sinemet.
--- NOTE | 2017-05-05 23:41 | CP.PCM.PN ---
Subjective - Date & Time of Evaluation Date of Evaluation: 05/04/17 Time of Evaluation: 10:00 - Subjective Subjective: Pt. is drowsy. responds minimally to verbal commands. open eyes. accepting oral feeds. Objective - Vital Signs/Intake and Output Vital Signs (last 24 hours): Temp Pulse Resp BP Pulse Ox 98.9 F 83 20 102/83 100 05/05/17 17:18 05/05/17 17:18 05/05/17 17:18 05/05/17 17:18 05/05/17 17:18 Intake and Output: 05/05/17 05/06/17 18:59 06:59 Intake Total 480 Output Total 400 Balance 80 - Medications Medications: Current Medications Acetaminophen (Tylenol 325mg Tab) 650 mg PO Q6H PRN PRN Reason: Pain, moderate (4-7) Last Admin: 05/04/17 17:42 Dose: 650 mg Albuterol/Ipratropium (Duoneb 3 Mg/0.5 Mg (3 Ml) Ud) 3 ml IH [id number] [facility] Last Admin: 05/05/17 19:54 Dose: 3 ml Albuterol/Ipratropium (Duoneb 3 Mg/0.5 Mg (3 Ml) Ud) 3 ml IH Q2H PRN PRN Reason: Shortness of Breath Aspirin (Aspirin Chewable) 81 mg PO DAILY [facility] Last Admin: 05/05/17 09:16 Dose: 81 mg Atorvastatin Calcium (Lipitor) 10 mg PO 1800 [facility] Last Admin: 05/05/17 17:30 Dose: 10 mg Carbidopa/Levodopa (Sinemet) 2 tab PO TID [facility] Last Admin: 05/05/17 17:31 Dose: 2 tab Clonidine HCl (Catapres Tts1 0.1 Mg/24 Hr) 1 patch TD .EVERY SATURDAY [facility] Docusate Sodium (Colace Liquid) 100 mg PO TID [facility] Last Admin: 05/05/17 19:53 Dose: Not Given Heparin Sodium (Porcine) (Heparin) 5,000 units SC Q12 ANNALISA PRN Reason: Protocol Last Admin: 05/05/17 21:50 Dose: 5,000 units Lorazepam (Ativan) 0.5 mg IVP Q6H PRN; Protocol PRN Reason: Agitation Last Admin: 05/03/17 05:26 Dose: 0.5 mg Pantoprazole Sodium (Protonix Inj) 40 mg IVP DAILY [facility] Last Admin: 05/05/17 09:15 Dose: 40 mg Polyethylene Glycol (Miralax) 17 gm PO DAILY [facility] Last Admin: 05/05/17 09:17 Dose: 17 gm Sertraline HCl (Zoloft) 25 mg PO BID [facility] Last Admin: 05/05/17 17:31 Dose: 25 mg - Labs Labs: 05/05/17 06:00 05/05/17 06:00 PT 11.1 Seconds (9.9-11.8) 05/01/17 11:25 INR 1.03 (0.93-1.08) 05/01/17 11:25 APTT 29.8 Seconds (23.7-30.8) 05/01/17 11:25 - Constitutional Appears: Confused, Chronically Ill - Head Exam Head Exam: ATRAUMATIC, NORMAL INSPECTION, NORMOCEPHALIC - Eye Exam Eye Exam: Normal appearance - ENT Exam ENT Exam: Mucous Membranes Moist - Neck Exam Neck Exam: Normal Inspection - Respiratory Exam Respiratory Exam: Clear to Ausculation Bilateral, NORMAL BREATHING PATTERN - Cardiovascular Exam Cardiovascular Exam: REGULAR RHYTHM, +S1, +S2 - GI/Abdominal Exam GI & Abdominal Exam: Soft, Normal Bowel Sounds - Back Exam Back Exam: NORMAL INSPECTION - Skin Skin Exam: Normal Color, Warm Assessment and Plan - Assessment and Plan (Free Text) Assessment: 1. Laryngeal mass 2. Dysphagia 3. failure to thrive 4. Parkinsons disease 5. CAD 6. HTN Plan : continue supportive care. continue current meds. family considering hospice options. continue 1 :1.
--- NOTE | 2017-05-06 00:03 | CP.PCM.PN ---
Subjective - Date & Time of Evaluation Date of Evaluation: 05/05/17 Time of Evaluation: 20:30 - Subjective Subjective: p Objective - Vital Signs/Intake and Output Vital Signs (last 24 hours): Temp Pulse Resp BP Pulse Ox 98.9 F 83 20 102/83 100 05/05/17 17:18 05/05/17 17:18 05/05/17 17:18 05/05/17 17:18 05/05/17 17:18 Intake and Output: 05/05/17 05/06/17 18:59 06:59 Intake Total 480 Output Total 400 Balance 80 - Medications Medications: Current Medications Acetaminophen (Tylenol 325mg Tab) 650 mg PO Q6H PRN PRN Reason: Pain, moderate (4-7) Last Admin: 05/04/17 17:42 Dose: 650 mg Albuterol/Ipratropium (Duoneb 3 Mg/0.5 Mg (3 Ml) Ud) 3 ml IH [id number] [facility] Last Admin: 05/05/17 19:54 Dose: 3 ml Albuterol/Ipratropium (Duoneb 3 Mg/0.5 Mg (3 Ml) Ud) 3 ml IH Q2H PRN PRN Reason: Shortness of Breath Aspirin (Aspirin Chewable) 81 mg PO DAILY [facility] Last Admin: 05/05/17 09:16 Dose: 81 mg Atorvastatin Calcium (Lipitor) 10 mg PO 1800 [facility] Last Admin: 05/05/17 17:30 Dose: 10 mg Carbidopa/Levodopa (Sinemet) 2 tab PO TID [facility] Last Admin: 05/05/17 17:31 Dose: 2 tab Clonidine HCl (Catapres Tts1 0.1 Mg/24 Hr) 1 patch TD .EVERY SATURDAY [facility] Docusate Sodium (Colace Liquid) 100 mg PO TID [facility] Last Admin: 05/05/17 19:53 Dose: Not Given Heparin Sodium (Porcine) (Heparin) 5,000 units SC Q12 ANNALISA PRN Reason: Protocol Last Admin: 05/05/17 21:50 Dose: 5,000 units Lorazepam (Ativan) 0.5 mg IVP Q6H PRN; Protocol PRN Reason: Agitation Last Admin: 05/03/17 05:26 Dose: 0.5 mg Pantoprazole Sodium (Protonix Inj) 40 mg IVP DAILY [facility] Last Admin: 05/05/17 09:15 Dose: 40 mg Polyethylene Glycol (Miralax) 17 gm PO DAILY [facility] Last Admin: 05/05/17 09:17 Dose: 17 gm Sertraline HCl (Zoloft) 25 mg PO BID [facility] Last Admin: 05/05/17 17:31 Dose: 25 mg - Labs Labs: 05/05/17 06:00 05/05/17 06:00 PT 11.1 Seconds (9.9-11.8) 05/01/17 11:25 INR 1.03 (0.93-1.08) 05/01/17 11:25 APTT 29.8 Seconds (23.7-30.8) 05/01/17 11:25 Assessment and Plan - Assessment and Plan (Free Text) Assessment: p
[2017-05-06 00:58] VITALS: BP 100/55; PULSE 74; TEMP 97.3; O2SAT 96
[2017-05-06] MEDS: Albuterol-Ipratrop 3 mg / 0.5 (3 ml) UD IH SCH ×3 (02:49→13:26)
[2017-05-06] MEDS ORDERED: Pantoprazole 40 mg Susp UD PO SCH (06:00)
--- NOTE | 2017-05-06 09:58 | CP.PCM.PN ---
Subjective - Date & Time of Evaluation Date of Evaluation: 05/06/17 Time of Evaluation: 10:00 - Subjective Subjective: Lethargic, agitated at times. Objective - Vital Signs/Intake and Output Vital Signs (last 24 hours): Temp Pulse Resp BP Pulse Ox 97.3 F L 74 20 100/55 L 96 05/06/17 00:00 05/06/17 00:00 05/06/17 00:00 05/06/17 00:00 05/06/17 00:00 Intake and Output: 05/06/17 05/06/17 06:59 18:59 Intake Total 480 Output Total 400 Balance 80 - Medications Medications: Current Medications Acetaminophen (Tylenol 325mg Tab) 650 mg PO Q6H PRN PRN Reason: Pain, moderate (4-7) Last Admin: 05/04/17 17:42 Dose: 650 mg Albuterol/Ipratropium (Duoneb 3 Mg/0.5 Mg (3 Ml) Ud) 3 ml IH [id number] [facility] Last Admin: 05/06/17 07:23 Dose: 3 ml Albuterol/Ipratropium (Duoneb 3 Mg/0.5 Mg (3 Ml) Ud) 3 ml IH Q2H PRN PRN Reason: Shortness of Breath Aspirin (Aspirin Chewable) 81 mg PO DAILY [facility] Last Admin: 05/05/17 09:16 Dose: 81 mg Atorvastatin Calcium (Lipitor) 10 mg PO 1800 [facility] Last Admin: 05/05/17 17:30 Dose: 10 mg Carbidopa/Levodopa (Sinemet) 2 tab PO TID [facility] Last Admin: 05/05/17 17:31 Dose: 2 tab Clonidine HCl (Catapres Tts1 0.1 Mg/24 Hr) 1 patch TD .EVERY SATURDAY [facility] Docusate Sodium (Colace Liquid) 100 mg PO TID [facility] Last Admin: 05/05/17 19:53 Dose: Not Given Heparin Sodium (Porcine) (Heparin) 5,000 units SC Q12 ANNALISA PRN Reason: Protocol Last Admin: 05/05/17 21:50 Dose: 5,000 units Lorazepam (Ativan) 0.5 mg IVP Q6H PRN; Protocol PRN Reason: Agitation Last Admin: 05/06/17 09:42 Dose: 0.5 mg Pantoprazole Sodium (Protonix Susp) 40 mg PO 0600 [facility] Last Admin: 05/06/17 05:23 Dose: 40 mg Polyethylene Glycol (Miralax) 17 gm PO DAILY [facility] Last Admin: 05/05/17 09:17 Dose: 17 gm Sertraline HCl (Zoloft) 25 mg PO BID [facility] Last Admin: 05/05/17 17:31 Dose: 25 mg - Labs Labs: 05/05/17 06:00 05/05/17 06:00 PT 11.1 Seconds (9.9-11.8) 05/01/17 11:25 INR 1.03 (0.93-1.08) 05/01/17 11:25 APTT 29.8 Seconds (23.7-30.8) 05/01/17 11:25 - Constitutional Appears: No Acute Distress, Chronically Ill - Eye Exam Eye Exam: Normal appearance, PERRL - ENT Exam ENT Exam: Mucous Membranes Moist - Respiratory Exam Respiratory Exam: Decreased Breath Sounds, NORMAL BREATHING PATTERN - Cardiovascular Exam Cardiovascular Exam: REGULAR RHYTHM, +S1, +S2 - GI/Abdominal Exam GI & Abdominal Exam: Soft, Normal Bowel Sounds - Extremities Exam Extremities Exam: Normal Inspection - Skin Skin Exam: Dry, Warm Assessment and Plan - Assessment and Plan (Free Text) Assessment: 76 year old male with history of Parkinson's dementia admitted with dysphagia. The patient is eating with assistance. He becomes agitated at times. His family met with [facility] regional transfer liaison on Saturday. Family agreed to home hospice services. The patient is scheduled to be discharged home later this afternoon. Plan: Home with hospice
[2017-05-06] MEDS: POLYETHYLENE GLYCOL 3350 17 GM/Dose PACKET PO SCH (10:16)
--- NOTE | 2017-05-15 19:53 | DS ---
DISCHARGE DIAGNOSES: 1. Laryngeal mass. 2. Parkinson disease. 3. Dysphagia. 4. Coronary artery disease. 5. Hypertension. 6. Failure to thrive. HOSPITAL COURSE: The patient was admitted with dysphagia and difficulty swallowing both liquid and solid. This was due to laryngeal mass. He was evaluated by ENT. Family opted home hospice. He is being discharged on home hospice. PHYSICAL EXAMINATION: On discharge, GENERAL: Comfortable in bed, in no acute distress. VITAL SIGNS: Temperature 98.7, heart rate 98 per minute, blood pressure 125/80, pulse ox 98% room air, respiratory rate 18 per minute. HEENT: Mucosa dry. CHEST: Air entry present and equal bilaterally. No added sounds. CARDIOVASCULAR: S1 and S2 normal. No murmur and no gallop. ABDOMEN: Soft and nontender. No hepatosplenomegaly. EXTREMITIES: No edema. NEUROLOGIC: Drowsy and arousable. DISPOSITION: Discharge home on home hospice. Home hospice arranged. Family agreed for that. CONDITION: Critical. MEDICATIONS: To be continued as per hospice services. Time spent in preparing discharge and coordinating care 55 minutes. Rosa Marley MD
== END 2017-05-06 16:05 | disposition hospice, home (50) | DRG 392 ==
LOC: ED 10:31 → ERH 12:52 → 5RNO 14:48
PROVIDERS: ADMIT Internal Medicine Nephrology; ATTEND Internal Medicine Nephrology
DX: R13.12 Dysphagia, oropharyngeal phase (principal); M40.292 Other kyphosis, cervical region; J38.7 Other diseases of larynx; G20 Parkinson's disease; F02.80 Dementia in other diseases classified elsewhere, unspecified severity, without behavioral disturbance, psychotic disturbance, mood disturbance, and anxiety; I10 Essential (primary) hypertension; I25.10 Atherosclerotic heart disease of native coronary artery without angina pectoris; E78.5 Hyperlipidemia, unspecified; K59.09 Other constipation; Z66 Do not resuscitate; Z51.5 Encounter for palliative care; R62.7 Adult failure to thrive; Z94.7 Corneal transplant status; Z88.0 Allergy status to penicillin